=== PATIENT | male | born 1990 | race Caucasian/White ===

== ENCOUNTER 2018-06-28 00:57 | Emergency (ER) | payer SELFPAY ==
[2018-06-28 01:00] VITALS: BP 120/77; PULSE 83; RESP 16; TEMP 36.8; O2SAT 100
--- NOTE | 2018-06-28 01:23 | W.ED.GENAD ---
Discharge Plan Disposition Patient Disposition: HOME Condition: Good Discharge Details Chief Complaint: DentalOral Clinical Impression: Gingival bleeding, S/P tooth extraction Primary Care Provider: Isreal Arcos ED Provider: Deric Anton Home Meds and New Rx's Prescriptions: Continue acetaminophen 500 mg Tablet 1,000 mg PO Q6H PRNRF: 0 Discharge Instructions Additional Instructions: Please follow-up with your dentist first thing in the morning. Use the gauze to apply pressure and control bleeding. Return to ED for any difficulty breathing, lightheadedness, fainting. Stand Alone Forms: Work Release Referrals: [facility] [Provider Group] Medical Decision Making Patient presenting with bleeding status post tooth extraction. The sockets themselves are intact with clot. He is bleeding around the stitch that was placed. It is oozing and is not heavy bleeding. We are having him bite on gauze and holding pressure. He is protecting his airway. There is nothing else at this point for me to do. He will need to follow-up with the dentist in the morning. HPI General Mode of arrival: ambulatory. Date/Time Provider Initiated Documentation: 06/28/18 01:23. Limitations to Documentation: no limitations. Information obtained by: patient. HPI Narrative: Patient here with bleeding status post dental extraction yesterday. He had his 2 right upper molars removed. He had to have stitches placed. 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 He presents now for evaluation. He is otherwise healthy and on essentially no medications. Related Data Home Medications Medication Instructions Recorded Confirmed acetaminophen 1,000 mg PO Q6H PRN 06/28/18 06/28/18 Allergies Allergy/AdvReac Type Severity Reaction Status Date / Time No Known Allergies Allergy Unverified 06/28/18 01:02 General Stated Complaint: DentalOral GEOFF: 4 Review of Systems Constitutional Denies fever(s) ENT Denies lip swelling, Reports mouth pain, Denies throat swelling, Denies tongue swelling and Reports other (Mouth bleeding) Allergic/Immunologic Denies lip swelling, Denies throat swelling and Denies tongue swelling [facility] Medical History Diabetes mellitus (Chronic) Social History Smoking/Tobacco Use Status: Never Exam Const General: cooperative and comfortable Orientation: alert and oriented x3 HENMT Head: normocephalic and atraumatic Teeth and gingiva: other (Clot is present in both empty sockets. Stitch is in place but he is oozing blood around the stitch.) Neuro General: alert, oriented x3, gait normal, no focal motor deficits and CN's II-XI intact bilaterally Course Vital Signs Temperature 98.2 F 06/28/18 01:00 Pulse 83 06/28/18 01:00 Respiratory Rate 16 06/28/18 01:00 Blood Pressure 120/77 06/28/18 01:00 Pulse Oximetry 100 06/28/18 01:00 Temperature 98.2 F 06/28/18 01:00 Temperature Source Skin 06/28/18 01:00 Pulse 83 06/28/18 01:00 Respiratory Rate 16 06/28/18 01:00 Respiratory Effort Non-Labored 06/28/18 01:01 Blood Pressure 120/77 06/28/18 01:00 Blood Pressure Position Sitting 06/28/18 01:00 Pulse Oximetry 100 06/28/18 01:00 Oxygen Delivery Method Room Air 06/28/18 01:00 Oxygen Flow Rate 0 06/28/18 01:00 Pain Level 2 06/28/18 01:00
--- NOTE | 2018-06-28 01:26 | ED.GENADUL_ITS ---
Discharge Plan Disposition Patient Disposition: HOME Condition: Good Discharge Details Chief Complaint: DentalOral Clinical Impression: Gingival bleeding, S/P tooth extraction Primary Care Provider: Isreal Arcos ED Provider: Deric Anton Home Meds and New Rx's Prescriptions: Continue acetaminophen 500 mg Tablet 1,000 mg PO Q6H PRNRF: 0 Discharge Instructions Additional Instructions: Please follow-up with your dentist first thing in the morning. Use the gauze to apply pressure and control bleeding. Return to ED for any difficulty breathing, lightheadedness, fainting. Stand Alone Forms: Work Release Referrals: [facility] [Provider Group] Medical Decision Making Patient presenting with bleeding status post tooth extraction. The sockets themselves are intact with clot. He is bleeding around the stitch that was placed. It is oozing and is not heavy bleeding. We are having him bite on gauze and holding pressure. He is protecting his airway. There is nothing else at this point for me to do. He will need to follow-up with the dentist in the morning. HPI General Mode of arrival: ambulatory . Date/Time Provider Initiated Documentation: 06/28/18 01:23 . Limitations to Documentation: no limitations . Information obtained by: patient . HPI Narrative: Patient here with bleeding status post dental extraction yesterday. He had his 2 right upper molars removed. He had to have stitches placed. 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 He presents now for evaluation. He is otherwise healthy and on essentially no medications. Related Data Home Medications Medication Instructions Recorded Confirmed acetaminophen 1,000 mg PO Q6H PRN 06/28/18 06/28/18 Allergies Allergy/AdvReac Type Severity Reaction Status Date / Time No Known Allergies Allergy Unverified 06/28/18 01:02 General Stated Complaint: DentalOral GEOFF: 4 Review of Systems Constitutional Denies fever(s) ENT Denies lip swelling, Reports mouth pain, Denies throat swelling, Denies tongue swelling and Reports other (Mouth bleeding) Allergic/Immunologic Denies lip swelling, Denies throat swelling and Denies tongue swelling [facility] Medical History Diabetes mellitus (Chronic) Social History Smoking/Tobacco Use Status: Never Exam Const General: cooperative and comfortable Orientation: alert and oriented x3 HENMT Head: normocephalic and atraumatic Teeth and gingiva: other (Clot is present in both empty sockets. Stitch is in place but he is oozing blood around the stitch.) Neuro General: alert, oriented x3, gait normal, no focal motor deficits and CN's II- XI intact bilaterally Course Vital Signs Temperature 98.2 F 06/28/18 01:00 Pulse 83 06/28/18 01:00 Respiratory Rate 16 06/28/18 01:00 Blood Pressure 120/77 06/28/18 01:00 Pulse Oximetry 100 06/28/18 01:00 Temperature 98.2 F 06/28/18 01:00 Temperature Source Skin 06/28/18 01:00 Pulse 83 06/28/18 01:00 Respiratory Rate 16 06/28/18 01:00 Respiratory Effort Non-Labored 06/28/18 01:01 Blood Pressure 120/77 06/28/18 01:00 Blood Pressure Position Sitting 06/28/18 01:00 Pulse Oximetry 100 06/28/18 01:00 Oxygen Delivery Method Room Air 06/28/18 01:00 Oxygen Flow Rate 0 06/28/18 01:00 Pain Level 2 06/28/18 01:00
== END 2018-06-28 02:01 | disposition home or self-care (01) ==
PROVIDERS: Emergency Provider Emergency Medicine; PCP General Practice
DX: K91.840 Postprocedural hemorrhage of a digestive system organ or structure following a digestive system procedure (principal); Y84.8 Other medical procedures as the cause of abnormal reaction of the patient, or of later complication, without mention of misadventure at the time of the procedure; E11.9 Type 2 diabetes mellitus without complications
CPT/HCPCS: 99281

== ENCOUNTER 2018-06-29 14:46 | Outpatient (CLI) | payer SELFPAY ==
[2018-06-29 15:12] LABS: Abs Immature Grans 0.01 k/cumm (0.0-0.09); Absolute Basophil Count 0.05 k/cumm (0.0-0.2); Absolute Eosinophil Count 0.04 k/cumm (0.0-0.7); Absolute Monocyte Count 0.45 k/cumm (0.11-0.7); Absolute Neutrophil Count 3.35 k/cumm (1.2-6.7); Basophils % 0.9; Eosinophils % 0.7; HCT 43.6 % (40.0-50.0); Immature Grans % 0.2; Lymphocytes % 30.4; Mean Corp. HGB Concentration 34.4 g/dL (32.0-36.0); Mean Corpuscular Hemoglobin 30.9 pg (27.0-33.0); Mean Corpuscular Volume 89.9 fL (80-95); Mean Platelet Volume 10.3 fL (8.0-11.0); Neutrophils % 59.8; Platelet Count 203 x1000/uL (130-400); RBC 4.85 m/cumm (4.50-6.00); RBC Distribution Width 12.8 % (11.8-14.1)
[2018-06-29 16:18] LABS: INR 1.1 (1.0-3.5); PTT Activated 27.8 sec (21.0-31.4); Prothrombin Time 10.6 sec (9.3-10.8)
[2018-06-29 20:56] LABS: Hemoglobin A1C 6.7 % (4.5-6.2)
== END 2018-06-29 15:06 ==
PROVIDERS: PCP General Practice; Visit Provider General Practice
DX: R79.1 Abnormal coagulation profile (principal); E11.9 Type 2 diabetes mellitus without complications
CPT/HCPCS: 36415; 83036; 85025; 85610; 85730

== ENCOUNTER 2019-06-18 11:20 | Outpatient (CLI) | payer SELFPAY ==
[2019-06-18 12:10] LABS: CREATININE 1.08 mg/dL (0.70-1.30); Glucose 214 mg/dL (70-100)
[2019-06-18 12:13] LABS: Hemoglobin A1C 7.5 % (4.5-6.2)
== END 2019-06-18 11:40 ==
PROVIDERS: PCP General Practice; Visit Provider General Practice
DX: E11.9 Type 2 diabetes mellitus without complications (principal)
CPT/HCPCS: 36415; 82947; 82565; 83036

== ENCOUNTER 2019-09-23 17:52 | Emergency (ER) | payer SELFPAY ==
[2019-09-23 17:59] VITALS: BP 112/79; PULSE 115; RESP 20; TEMP 36.9; O2SAT 98
--- NOTE | 2019-09-23 18:59 | W.ED.GENAD ---
Discharge Plan Disposition Patient Disposition: HOME Condition: Stable Discharge Details Chief Complaint: GenMedical Clinical Impression: Influenza A Primary Care Provider: Isreal Arcos ED Provider: Nyasia Bullock Home Meds and New Rx's Prescriptions: Continued metformin 1,000 mg Tablet 1,000 mg PO DAILY RF: 0 Discharge Instructions Instructions: Influenza (ED) Additional Instructions: Follow up with primary care provider in 3-5 days. Return to ED sooner if any worsening or concerns. Please take Tylenol or Ibuprofen with food every 4-6 hours as needed for pain and swelling. Increase oral fluids. Practice handwashing wear mask when in close quarters with other people. Stand Alone Forms: Work Release Referrals: Isreal Arcos MD [Primary Care Provider] - Discharge Data Discharge Date/Time-TO BE ENTERED AT DEPARTURE: 09/23/19 19:20 Medical Decision Making 28-year-old diabetic male presents with nausea vomiting, headaches mild sore throat and flu like symptoms. Flu swab is positive for flu a. Discussed treatment option of Tamiflu with patient which he denies at this time. Discussed symptomatic treatment including increasing fluids Tylenol and ibuprofen hand washing and droplet precautions at home.Verbalized understanding. Instructed to return if any worsening symptoms, trouble breathing fever none relieved by medications, verbalized understanding. This text was generated using [employer] dictation system, please disregard any oddities of phrase or misspellings. HPI General Mode of arrival: ambulatory. Date/Time Provider Initiated Documentation: 09/23/19 18:59. Limitations to Documentation: no limitations. Information obtained by: patient. HPI Narrative: 28-year-old male presents with upper respiratory-like symptoms. Reported headache, cough mild sore throat no ear pain. Intermittent nausea and vomiting. Patient is a diabetic and takes metformin. He denies diarrhea. Influenza swab is positive for influenza A. Discussed Tamiflu with patient he denies at this time wanting Tamiflu. Discussed symptomatic treatment Tylenol and ibuprofen, increase fluids and home standardization and handwashing techniques with patient, verbalizes understanding. Related Data Home Medications Medication Instructions Recorded Confirmed metformin 1,000 mg PO DAILY 09/23/19 09/23/19 Allergies Allergy/AdvReac Type Severity Reaction Status Date / Time No Known Allergies Allergy Unverified 09/23/19 18:04 General Stated Complaint: GenMedical GEOFF: 3 Review of Systems Narrative: Constitutional: Negative for weight loss, alert and oriented, well groomed, normal body habitus, appears comfortable. Patient is a diabetic and takes metformin HEENT: Denies trauma, positive headaches, negative blurry vision, positive nasal discharge, positive mild sore throat, negative trouble swallowing. Chest: Denies chest pain, palpitations, irregular rhythm, hypertension. Respiratory: Denies Shortness of breath, cough, hemoptysis. GI: Denies abdominal pain, nausea, vomiting, diarrhea, constipation. : Denies dysuria, hematuria, flank pain, rectal bleeding. Neuro: Denies dizziness, blurry vision, weakness, syncope, or facial numbness. Hematologic: Denies easy bruising, intolerance to heat or cold, hair loss. [facility] Medical History Diabetes mellitus (Chronic) Social History Smoking/Tobacco Use Status: Never Alcohol Intake: never Drug use: Daily Substance use type: marijuana Do you feel safe at home: Yes Do you feel safe in your relationship?: Yes Exam Const General: cooperative, comfortable, no acute distress and well developed Nutritional Appearance: average body habitus Orientation: alert, awake and oriented x3 HENMT Head: normal to inspection, no palpable skull fracture and normocephalic Ears: TM's normal bilaterally General nose exam: external nose normal and nares normal Face and sinus: normal facial exam and sinuses nontender Mouth: oral mucosae normal Throat: uvula midline and posterior oropharynx abnormal erythema; no edema and no exudates Neck Lymphatic: no lymphadenopathy noted Resp Effort & Inspection: normal respiratory effort Auscultation: clear to auscultation bilaterally, no rhonchi and no wheezes Cardio Rate: regular rate Rhythm: regular rhythm Heart Sounds: S1 normal and S2 normal Course Vital Signs Vital signs: Vital Signs Temperature 36.9 C 09/23/19 17:59 Pulse 115 H 09/23/19 17:59 Respiratory Rate 09/23/19 17:59 Blood Pressure 112/79 09/23/19 17:59 Pulse Oximetry 98 09/23/19 17:59 Temperature 36.9 C 09/23/19 17:59 Temperature Source Tympanic 09/23/19 17:59 Pulse 115 H 09/23/19 17:59 Respiratory Rate 09/23/19 17:59 Respiratory Effort Non-Labored 09/23/19 18:02 Blood Pressure 112/79 09/23/19 17:59 Blood Pressure Position Sitting 09/23/19 17:59 Pulse Oximetry 98 09/23/19 17:59 Oxygen Delivery Method Room Air 09/23/19 17:59 Oxygen Flow Rate 0 09/23/19 17:59 Pain Level 4 09/23/19 17:59 Lab/Test Results Lab/Test Results: 09/23/19 18:07 Nasopharynx Influenza Types A,B Antigen - Final
[2019-09-23 19:21] VITALS: RESP 16
== END 2019-09-23 19:20 | disposition home or self-care (01) ==
PROVIDERS: Emergency Provider Registered Nurse Emergency; PCP General Practice
DX: J10.1 Influenza due to other identified influenza virus with other respiratory manifestations (principal); R11.2 Nausea with vomiting, unspecified; E11.9 Type 2 diabetes mellitus without complications; Z79.84 Long term (current) use of oral hypoglycemic drugs
CPT/HCPCS: 87449; 99282; 99283

== ENCOUNTER 2022-09-20 13:54 | Inpatient (IN) | payer SELFPAY ==
[2022-09-20] VITALS (92 sets, daily range): BP systolic 103–150; BP diastolic 49–108; PULSE 97–159; RESP 13–27; TEMP 37.6–37.8; O2SAT 96–100
--- NOTE | 2022-09-20 14:00 | RT.EKG_ITS ---
APPROVED REPORT Exam: Resting ECG Reason for Exam: rapid heart rate Patient Location: E HR:136 bpm ECG Measurements Heart Rate 136 AXIS MD 134 P 82 QRSd 93 QRS 139 QT 297 T 59 QTc 448 Conclusion Sinus tachycardia...rate> 99 Right axis deviation...QRS axis (100,269) ST elev, probable normal early repol pattern...ST elevation, age<55
[2022-09-20 14:36] LABS: Abs Immature Grans 0.11 10^3/uL (0.0-0.06); Absolute Lymphocyte Count 1.01 10^3/uL (1.2-3.4); Absolute Neutrophil Count 14.48 10^3/uL (1.2-6.7); Basophils % 0.7; Eosinophils % 0.1; HCT 53.2 % (40.0-50.0); HGB 17.7 g/dL (13.5-17.5); Immature Grans % 0.7; Lymphocytes % 6.2; MCH 30.5 pg (27.0-33.0); MCHC 33.3 % (32.0-36.0); MCV 92 fL (80-95); MPV 10.2 fL (8.0-11.0); Neutrophils % 89.3; Platelet Count 324 10^3/uL (130-400); RDW 11.7 % (11.8-14.1); RDW-SD 39.4 fL; WBC 16.21 10^3/uL (4.4-10.8)
[2022-09-20 14:37] LABS: Absolute Basophil Count 0.11 10^3/uL (0.0-0.2); Absolute Eosinophil Count 0.02 10^3/uL (0.0-0.7); Absolute Monocyte Count 0.49 10^3/uL (0.1-0.8)
[2022-09-20] MEDS: Ondansetron 4 MG/2 ML VIAL IVP (14:45)
[2022-09-20] MEDS: Lactated Ringers 1,000 ML 1000 ML IV (14:47)
[2022-09-20 14:50] LABS: ALT 29 U/L (16-63); AST 16 U/L (15-37); Albumin 5.4 g/dL (3.4-5.0); Alkaline Phosphatase 92 U/L (46-116); Anion Gap 26.6 mmol/L (3-11); BUN 28 mg/dL (7-18); Bilirubin, Total 0.7 mg/dL (0.2-1.0); CO2 12.4 mmol/L (21.0-32.0); CREATININE 1.7 mg/dL (0.70-1.30); Calcium 10.1 mg/dL (8.5-10.1); Chloride 97 mmol/L (98-107); Estimated GFR 54.59 (mL/min/1.73m2); Glucose 321 mg/dL (74-106); Potassium 4.7 mmol/L (3.5-5.1); Sodium 136 mmol/L (136-145); Total Protein 9.6 g/dL (6.4-8.2)
[2022-09-20] MEDS: Famotidine 20 MG/2 ML VIAL IVP (15:15)
--- NOTE | 2022-09-20 15:15 | ED.GENADUL_ITS ---
Discharge Plan Discharge Details Chief Complaint: Nausea/Vomit/Diar Primary Care Provider: Matthew Lama ED Provider: Carter Atkinson Home Meds and New Rx's Prescriptions: No Action (DME) insulin syringe-needle U-100 0.3 mL 31 gauge x 1/4 syringe See Rx Instructions .ROUTE .MEDSUPPLY Qty: 100 4RF Rx Instructions: As directed insulin NPH isoph U-100 human 100 unit/mL suspension 20 unit subcut DAILY Medical Decision Making 31-year-old male with history of insulin-dependent diabetes, here with excessive vomiting today, noncompliant with insulin over the past 4 days as he ran out of supplies. Patient is tachycardic. He was reviewed and interpreted by me: Please see report, sinus tachycardia 136 bpm, right axis deviation noted, benign early repolarization. [id number] blood sugar 291. Initial labs reviewed, leukocytosis noted, WILLIAM noted, significant lactic acidosis with anion gap of 26.6. Glucose 321. High concern for DKA. Patient receiving IV fluid bolus. Plan to initiate treatment with insulin post IV fluid resuscitation. Patient was given Pepcid IV as well as Zofran IV for nausea. Lab Data Lab results reviewed: Yes I reviewed the patient's lab results. Labs: Laboratory Tests Range/Units 09/20/22 09/20/22 14:00 14:00 WBC (4.4-10.8) 10^3/uL 16.21 H RBC (4.36-5.78) 10^6/uL 5.80 H Hgb (13.5-17.5) g/dL 17.7 H Hct (40.0-50.0) % 53.2 H MCV (80-95) fL 92 MCH (27.0-33.0) pg 30.5 MCHC (32.0-36.0) % 33.3 RDW (11.8-14.1) % 11.7 L Plt Count (130-400) 10^3/uL 324 MPV (8.0-11.0) fL 10.2 Immature Gran % 0.7 Neutrophils % 89.3 Lymphocytes % 6.2 Monocytes % 3.0 Eosinophils % 0.1 Basophils % 0.7 Nucleated RBC % (0.0-0.3) % 0.0 Absolute Neutrophils (1.2-6.7) 10^3/uL 14.48 H Absolute Lymphocytes (1.2-3.4) 10^3/uL 1.01 L Absolute Monocytes (0.1-0.8) 10^3/uL 0.49 Absolute Eosinophils (0.0-0.7) 10^3/uL 0.02 Absolute Basophils (0.0-0.2) 10^3/uL 0.11 Sodium (136-145) mmol/L 136 Potassium (3.5-5.1) mmol/L 4.7 Chloride (98-107) mmol/L 97 L Carbon Dioxide (21.0-32.0) mmol/L 12.4 L Anion Gap (3-11) mmol/L 26.6 H BUN (7-18) mg/dL 28 H Creatinine (0.70-1.30) mg/dL 1.7 H Est GFR (CKD-EPI 2020) (mL/min/1.73m2) 54.59 Glucose (74-106) mg/dL 321 H Calcium (8.5-10.1) mg/dL 10.1 Magnesium (1.8-2.4) mg/dL 2.0 Total Bilirubin (0.2-1.0) mg/dL 0.7 AST (15-37) U/L 16 ALT (16-63) U/L 29 Alkaline Phosphatase (46-116) U/L 92 Total Protein (6.4-8.2) g/dL 9.6 H Albumin (3.4-5.0) g/dL 5.4 H HPI General Mode of arrival: ambulatory . Date/Time Provider Initiated Documentation: 09/20/22 14:14 . Limitations to Documentation: no limitations . Information obtained by: patient . HPI Narrative: 31-year-old male with history of insulin-dependent diabetes, presents with chief complaint of vomiting. Patient notes nausea and vomiting that started early thi s morning. He has had excessive, 20+ episodes of vomiting today. He denies associated abdominal pain. He does note recently some of the emesis has been red-tinged. Patient states he has not been taking his insulin for the past 4 days as he ran out of needles. Related Data Home Medications Medication Instructions Recorded Confirmed insulin syringe-needle U-100 0.3 #100 ea 08/27/20 09/20/22 mL 31 gauge x 1/4 insulin NPH isoph U-100 human 100 20 unit subcut DAILY Reli-On Brand 12/04/20 09/20/22 unit/mL subcutaneous suspension Previous Rx's Medication Instructions Recorded insulin syringe-needle U-100 0.3 #100 ea 08/27/20 mL 31 gauge x 1/4 Allergies Allergy/AdvReac Type Severity Reaction Status Date / Time shellfish derived Allergy Severe Throat Verified 09/20/22 14:12 Swelling General Stated Complaint: Nausea/Vomit/Diar GEOFF: 2 Review of Systems All systems reviewed & are unremarkable except as noted in HPI and below Constitutional Constitutional: Denies fever(s) Gastrointestinal Gastrointestinal: Reports as per HPI, Reports nausea and Reports vomiting PFSH All Active Problems Shoulder pain, left (Acute) Low back strain (Acute) Headache (Acute) Abdominal symptoms (Acute) Loose stools (Acute) Anxiety (Chronic) Annual physical exam (Acute) Diabetes mellitus (Chronic) Influenza A (Acute) Medical History Diabetes mellitus Family History Mother Asthma Depression Diabetes Father Seizures Sister Seizures Social History Smoking/Tobacco Use Status: Former Tobacco Use Second Hand Exposure: Yes Smoking risk assessment performed?: Yes Alcohol Intake: never Drug use: Daily Substance use type: marijuana Caregiver/Support person: No Household members: spouse Communication Needs: None Do you need help understanding health information?: Never Pets and animals: Yes Pets and animals: cat(s) Sexually active: Yes Do you think of yourself as: straight/heterosexual Current gender identity: male What is your relationship status?: How often do you talk on the phone with friends or family?: once per week How often do you get together with friends or relatives?: once per week How often do you attend islam or orthodox services?: decline to answer Do you belong to any clubs or organized social groups?: no Panel score (0-1 are the most socially isolated patients): 1 What type of physical activity do you participate in: walking Duration: other Frequency: daily Louise/Confucianist: Anabaptist Seatbelt use: always Drive intox or ride w/intox home delivery driver: No Do you feel safe at home: Yes Do you feel safe in your relationship?: Yes Exam Const General: cooperative and no acute distress HENMT Mouth: mucous membranes dry Eyes Conjunctivae: normal conjunctivae Sclera: normal sclerae Neck Neck: trachea midline and supple Resp Auscultation: clear to auscultation bilaterally, no rales, no rhonchi and no wheezes Cardio Rate: tachycardic Rhythm: regular rhythm GI Palpation: soft, not firm, no guarding, no masses, not rigid and nontender Skin General skin exam: no rashes or lesions noted Neuro General: patient alert, patient awake and tone normal Extrem General: no edema Psych Appearance: grossly normal Mental Status: mental status grossly normal Course Vital Signs Vital signs: Vital Signs Temperature 37.6 C H 09/20/22 13:57 Pulse 152 H 09/20/22 13:57 Respiratory Rate 18 09/20/22 13:57 Blood Pressure 113/56 L 09/20/22 13:57 Pulse Oximetry 96 09/20/22 13:57 Temperature 37.6 C H 09/20/22 13:57 Temperature Source Temporal Artery Scan 09/20/22 13:57 Pulse 152 H 09/20/22 13:57 Respiratory Rate 18 09/20/22 13:57 Respiratory Effort 09/20/22 14:06 Blood Pressure 113/56 L 09/20/22 13:57 Pulse Oximetry 96 09/20/22 13:57 Oxygen Delivery Method Room Air 09/20/22 13:57 Oxygen Flow Rate 0 09/20/22 13:57 Lab/Test Results Lab/Test Results: Laboratory Tests Range/Units 09/20/22 09/20/22 14:00 14:00 WBC (4.4-10.8) 10^3/uL 16.21 H RBC (4.36-5.78) 10^6/uL 5.80 H Hgb (13.5-17.5) g/dL 17.7 H Hct (40.0-50.0) % 53.2 H MCV (80-95) fL 92 MCH (27.0-33.0) pg 30.5 MCHC (32.0-36.0) % 33.3 RDW (11.8-14.1) % 11.7 L Plt Count (130-400) 10^3/uL 324 MPV (8.0-11.0) fL 10.2 Immature Gran % 0.7 Neutrophils % 89.3 Lymphocytes % 6.2 Monocytes % 3.0 Eosinophils % 0.1 Basophils % 0.7 Nucleated RBC % (0.0-0.3) % 0.0 Absolute Neutrophils (1.2-6.7) 10^3/uL 14.48 H Absolute Lymphocytes (1.2-3.4) 10^3/uL 1.01 L Absolute Monocytes (0.1-0.8) 10^3/uL 0.49 Absolute Eosinophils (0.0-0.7) 10^3/uL 0.02 Absolute Basophils (0.0-0.2) 10^3/uL 0.11 Sodium (136-145) mmol/L 136 Potassium (3.5-5.1) mmol/L 4.7 Chloride (98-107) mmol/L 97 L Carbon Dioxide (21.0-32.0) mmol/L 12.4 L Anion Gap (3-11) mmol/L 26.6 H BUN (7-18) mg/dL 28 H Creatinine (0.70-1.30) mg/dL 1.7 H Est GFR (CKD-EPI 2020) (mL/min/1.73m2) 54.59 Glucose (74-106) mg/dL 321 H Calcium (8.5-10.1) mg/dL 10.1 Magnesium (1.8-2.4) mg/dL 2.0 Total Bilirubin (0.2-1.0) mg/dL 0.7 AST (15-37) U/L 16 ALT (16-63) U/L 29 Alkaline Phosphatase (46-116) U/L 92 Total Protein (6.4-8.2) g/dL 9.6 H Albumin (3.4-5.0) g/dL 5.4 H
[2022-09-20] MEDS: Normal Saline 1,000 ML 1000 ML IV (15:26)
--- NOTE | 2022-09-20 16:15 | DI.RAD_ITS ---
Exam(s) XR PORTABLE CHEST AP EXAM: XR PORTABLE CHEST AP CLINICAL HISTORY: vomiting, consider aspiration TECHNIQUE: 2D digital imaging was performed of the chest. Two images were obtained. AP views were obtained. COMPARISON: CR CHEST 2 VIEWS PA,LAT from 02/27/2018 FINDINGS: MEDIASTINUM: Normal. HEART: Normal. PULMONARY VASCULATURE: Normal. LUNGS: Clear. PLEURAL SPACE: No pleural effusion or pneumothorax. BONE:Within normal limits for the patient's age. OTHER FINDINGS:Normal. IMPRESSION: No acute pulmonary findings. DATA REPOSITORY: RADIATION DOSE DELIVERED:
[2022-09-20 16:18] LABS: HCO3 (Venous) 9 mmol/L (23-28); O2 Sat (Venous) 91 %; TCO2 (Venous) 8 mmol/L (24-29); pCO2 (Venous) 29 mmHg (41-51); pO2 (Venous) 68 mmHg
[2022-09-20 16:21] LABS: pH (Venous) 7.07 (7.31-7.41)
--- NOTE | 2022-09-20 16:23 | W.EDPROG ---
Date of service: 09/20/22 Time of Service: 16:23 Medical Decision Making Red discoloration to vomiting on arrival. Gastroccult trace positive. Patient reassessed and has no recurrent hematemesis. I spoke with Dr. Alvarez and discussed ED presentation and course. She requests cxr. She will admit the patient to ICU. She is aware of pending UA and VBG. She will be placing admission orders to ICU. Lab Data Lab results reviewed: Yes I reviewed the patient's lab results. Labs: Laboratory Tests Range/Units 09/20/22 09/20/22 09/20/22 14:00 14:00 14:50 WBC (4.4-10.8) 10^3/uL 16.21 H RBC (4.36-5.78) 10^6/uL 5.80 H Hgb (13.5-17.5) g/dL 17.7 H Hct (40.0-50.0) % 53.2 H MCV (80-95) fL 92 MCH (27.0-33.0) pg 30.5 MCHC (32.0-36.0) % 33.3 RDW (11.8-14.1) % 11.7 L Plt Count (130-400) 10^3/uL 324 MPV (8.0-11.0) fL 10.2 Immature Gran % 0.7 Neutrophils % 89.3 Lymphocytes % 6.2 Monocytes % 3.0 Eosinophils % 0.1 Basophils % 0.7 Nucleated RBC % (0.0-0.3) % 0.0 Absolute Neutrophils (1.2-6.7) 10^3/uL 14.48 H Absolute Lymphocytes (1.2-3.4) 10^3/uL 1.01 L Absolute Monocytes (0.1-0.8) 10^3/uL 0.49 Absolute Eosinophils (0.0-0.7) 10^3/uL 0.02 Absolute Basophils (0.0-0.2) 10^3/uL 0.11 VBG pH (7.31-7.41) VBG pCO2 (41-51) mmHg VBG pO2 mmHg VBG HCO3 (23-28) mmol/L VBG Total CO2 (24-29) mmol/L VBG O2 Saturation % VBG Base Excess (-2-3) mmol/L Sodium (136-145) mmol/L 136 Potassium (3.5-5.1) mmol/L 4.7 Chloride (98-107) mmol/L 97 L Carbon Dioxide (21.0-32.0) mmol/L 12.4 L Anion Gap (3-11) mmol/L 26.6 H BUN (7-18) mg/dL 28 H Creatinine (0.70-1.30) mg/dL 1.7 H Est GFR (CKD-EPI 2020) (mL/min/1.73m2) 54.59 Glucose (74-106) mg/dL 321 H Calcium (8.5-10.1) mg/dL 10.1 Magnesium (1.8-2.4) mg/dL 2.0 Total Bilirubin (0.2-1.0) mg/dL 0.7 AST (15-37) U/L 16 ALT (16-63) U/L 29 Alkaline Phosphatase (46-116) U/L 92 Total Protein (6.4-8.2) g/dL 9.6 H Albumin (3.4-5.0) g/dL 5.4 H Patient ABO/Rh O Positive Antibody Screen NEGATIVE Range/Units 09/20/22 16:14 WBC (4.4-10.8) 10^3/uL RBC (4.36-5.78) 10^6/uL Hgb (13.5-17.5) g/dL Hct (40.0-50.0) % MCV (80-95) fL MCH (27.0-33.0) pg MCHC (32.0-36.0) % RDW (11.8-14.1) % Plt Count (130-400) 10^3/uL MPV (8.0-11.0) fL Immature Gran % Neutrophils % Lymphocytes % Monocytes % Eosinophils % Basophils % Nucleated RBC % (0.0-0.3) % Absolute Neutrophils (1.2-6.7) 10^3/uL Absolute Lymphocytes (1.2-3.4) 10^3/uL Absolute Monocytes (0.1-0.8) 10^3/uL Absolute Eosinophils (0.0-0.7) 10^3/uL Absolute Basophils (0.0-0.2) 10^3/uL VBG pH (7.31-7.41) 7.07 L* VBG pCO2 (41-51) mmHg 29 L VBG pO2 mmHg 68 VBG HCO3 (23-28) mmol/L 9 L VBG Total CO2 (24-29) mmol/L 8 L VBG O2 Saturation % 91 VBG Base Excess (-2-3) mmol/L < -15 L Sodium (136-145) mmol/L Potassium (3.5-5.1) mmol/L Chloride (98-107) mmol/L Carbon Dioxide (21.0-32.0) mmol/L Anion Gap (3-11) mmol/L BUN (7-18) mg/dL Creatinine (0.70-1.30) mg/dL Est GFR (CKD-EPI 2020) (mL/min/1.73m2) Glucose (74-106) mg/dL Calcium (8.5-10.1) mg/dL Magnesium (1.8-2.4) mg/dL Total Bilirubin (0.2-1.0) mg/dL AST (15-37) U/L ALT (16-63) U/L Alkaline Phosphatase (46-116) U/L Total Protein (6.4-8.2) g/dL Albumin (3.4-5.0) g/dL Patient ABO/Rh Antibody Screen Sign Out Sign Out Data: Sign Out Comment: reassess labs and continue dka treatment Last updated by Carter Atkinson MD at 09/20/22 15:51 Discharge Plan Disposition Patient Disposition: Admit to [facility] Condition: Critical Discharge Details Chief Complaint: Nausea/Vomit/Diar Clinical Impression: DKA (diabetic ketoacidosis), Hematemesis, Nausea & vomiting Primary Care Provider: Matthew Lama ED Provider: Sung Basilio Home Meds and New Rx's Prescriptions: No Action (DME) insulin syringe-needle U-100 0.3 mL 31 gauge x 1/4 syringe See Rx Instructions .ROUTE .MEDSUPPLY Qty: 100 4RF Rx Instructions: As directed insulin NPH isoph U-100 human 100 unit/mL suspension 20 unit subcut DAILY
--- NOTE | 2022-09-20 16:32 | W.PM.HP.N ---
Date of service: 09/20/22 Time of Service: 16:32 Assessment and Plan Assessment and plan (1) DKA (diabetic ketoacidosis): Status: Acute Assessment and plan: Admit to the ICU on an insulin gtt. Trend VBGs, chemistries. Aggressive IVF. Provide diabetes education (2) Hematemesis: Status: Acute Assessment and plan: Start PPI + carafate. Provide antiemetics. Trend H/H's. Consider a surgical consult. Suspect a Dora - Villasenor tear. (3) Nausea & vomiting: Status: Acute Assessment and plan: Suspect this is due to DKA. No abdominal pain. Treat with antiemetics and treat DKA. NPO. (4) Diabetes mellitus: Assessment and plan: Check A1C C/s diabetes education. (5) DVT prophylaxis: Status: Acute Assessment and plan: SCDs. Chemical DVT ppx is not indicated in an ambulatory 31 year old male with acute GI bleeding (6) Discharge planning issues: Status: Acute Assessment and plan: Admit to the ICU. Total Critical Care Time 45 minutes History of Present Illness History of Present Illness Chief Complaint: Nausea/vomiting; ran out of insulin needles 4 days aog Narrative: Mr Duffy is a 31 year old male with PMHx of T1DM who presented to [facility] ED with nausea/vomiting, dizziness, shortness of breath, and confusion starting this morning, 4 days after running out of insulin needles for his syringes and, reportedly, being unable to refill them at his pharmacy. He states that he did vomit blood. In the ER, he was tachycardic/dehydrated. His emetic contents are gastroccult positive. Denies abdominal pain.His pH is 7.07. His Cr is 1.7, up from 1.08. He was started on aggressive IVF and insulin gtt is being initiated. He received zofran and pepcid for hematemesis. Hospitalist admission to the ICU was requested. The patient reports R jaw pain. Review of Systems All systems reviewed & are unremarkable except as noted in HPI and below PFSH All Active Problems (Updated 09/20/22 @ 16:46 by Meena Alvarez MD) Discharge planning issues (Acute) DVT prophylaxis (Acute) DKA (diabetic ketoacidosis) (Acute) Hematemesis (Acute) Nausea & vomiting (Acute) Shoulder pain, left (Acute) Low back strain (Acute) Headache (Acute) Abdominal symptoms (Acute) Loose stools (Acute) Anxiety (Chronic) Annual physical exam (Acute) Diabetes mellitus (Chronic) Influenza A (Acute) Medical History (Updated 09/20/22 @ 16:46 by Meena Alvarez MD) Diabetes mellitus Surgical History (Updated 09/20/22 @ 17:35 by Meena Alvarez MD) No pertinent past surgical history Family History (Updated 09/20/22 @ 17:35 by Meena Alvarez MD) Mother Asthma Depression Diabetes Heart disease Hypertension Father Seizures Sister Seizures Social History Smoking/Tobacco Use Status: Former Tobacco Use Second Hand Exposure: Yes Smoking risk assessment performed?: Yes Alcohol Intake: never Drug use: Daily Substance use type: marijuana Caregiver/Support person: No Household members: spouse Communication Needs: None Do you need help understanding health information?: Never Pets and animals: Yes Pets and animals: cat(s) Sexually active: Yes Do you think of yourself as: straight/heterosexual Current gender identity: male What is your relationship status?: How often do you talk on the phone with friends or family?: once per week How often do you get together with friends or relatives?: once per week How often do you attend gnosticist or sikh services?: decline to answer Do you belong to any clubs or organized social groups?: no Panel score (0-1 are the most socially isolated patients): 1 What type of physical activity do you participate in: walking Duration: other Frequency: daily Louise/Catholic: Zoroastrianism Seatbelt use: always Drive intox or ride w/intox marine engine driver: No Do you feel safe at home: Yes Do you feel safe in your relationship?: Yes Meds Allergies and Home Medications Allergies Allergy/AdvReac Type Severity Reaction Status Date / Time shellfish derived Allergy Severe Throat Verified 09/20/22 14:12 Swelling Home Medications Medication Instructions Recorded Confirmed Type insulin syringe-needle U-100 0.3 #100 ea 08/27/20 09/20/22 Rx mL 31 gauge x 1/4 insulin NPH isoph U-100 human 100 20 unit subcut DAILY Reli-On Brand 12/04/20 09/20/22 History unit/mL subcutaneous suspension Exam Narrative Exam Narrative: General: Pleasant male who is A&Ox3, appears tired, visibly dehydrated, not tachypneic Neurological: A&Ox3, no focal deficits, mentating Psychiatric: appropriate speech pattern/cotent Skin: multiple skin nodules that do not appear infected HEENT: Atraumatic, normocephalic, EOMI, dry MM, clear oropharynx, no submandibular or cervical lymphadenopathy, no goiter or JVD Cardiovascular: RRR, tachycardic Lungs: CTAB Gastrointestinal: soft, nontender, nondistended Genitourinary: deferred Extremities: no edema BLEs, 1+ pedal pulses B Results Imaging Additional studies: CXR: pending EKG: ST, HR 136, early repolarization, no acute ischemia Labs Result diagrams: 09/20/22 14:00 09/20/22 14:00 Labs: Laboratory Results - last 24 hr 09/20/22 09/20/22 09/20/22 14:00 14:00 14:50 WBC 16.21 H RBC 5.80 H Hgb 17.7 H Hct 53.2 H MCV 92 MCH 30.5 MCHC 33.3 RDW 11.7 L Plt Count 324 MPV 10.2 Immature Gran % 0.7 Neutrophils % 89.3 Lymphocytes % 6.2 Monocytes % 3.0 Eosinophils % 0.1 Basophils % 0.7 Nucleated RBC % 0.0 Absolute Neutrophils 14.48 H Absolute Lymphocytes 1.01 L Absolute Monocytes 0.49 Absolute Eosinophils 0.02 Absolute Basophils 0.11 VBG pH VBG pCO2 VBG pO2 VBG HCO3 VBG Total CO2 VBG O2 Saturation VBG Base Excess Sodium 136 Potassium 4.7 Chloride 97 L Carbon Dioxide 12.4 L Anion Gap 26.6 H BUN 28 H Creatinine 1.7 H Est GFR (CKD-EPI 2020) 54.59 Glucose 321 H Calcium 10.1 Magnesium 2.0 Total Bilirubin 0.7 AST 16 ALT 29 Alkaline Phosphatase 92 Total Protein 9.6 H Albumin 5.4 H Patient ABO/Rh O Positive Antibody Screen NEGATIVE 09/20/22 16:14 WBC RBC Hgb Hct MCV MCH MCHC RDW Plt Count MPV Immature Gran % Neutrophils % Lymphocytes % Monocytes % Eosinophils % Basophils % Nucleated RBC % Absolute Neutrophils Absolute Lymphocytes Absolute Monocytes Absolute Eosinophils Absolute Basophils VBG pH 7.07 L* VBG pCO2 29 L VBG pO2 68 VBG HCO3 9 L VBG Total CO2 8 L VBG O2 Saturation 91 VBG Base Excess < -15 L Sodium Potassium Chloride Carbon Dioxide Anion Gap BUN Creatinine Est GFR (CKD-EPI 2020) Glucose Calcium Magnesium Total Bilirubin AST ALT Alkaline Phosphatase Total Protein Albumin Patient ABO/Rh Antibody Screen Last Vital Signs Temp 37.6 C H 09/20/22 13:57 Pulse 152 H 09/20/22 13:57 Resp 18 09/20/22 13:57 BP 113/56 L 09/20/22 13:57 Pulse Ox 96 09/20/22 13:57 Time Spent Time spent with Patient: 40-54 minutes Time was spent: preparing to see the patient(eg.review tests), obtaining and/or reviewing separately otained hiistory, ordering medications,tests, procedures, referring, communicating with other health personal caregiver, indepentently interpreting results, counseling the patient and care coordination
[2022-09-20 16:42] LABS: Source Nasal/Nares
[2022-09-20 16:44] LABS: Bilirubin Negative (Negative); Blood Trace-lysed (Negative); Clarity Clear (Clear); Glucose 500 mg/dL (Negative); Ketones >=160 mg/dL (Negative); Leukocyte Esterase Negative (Negative); Nitrite Negative (Negative); Specific Gravity >= 1.030 (1.005-1.025); Urobilinogen 0.2 EU/dL (Up TO 0.2); pH 5.5 (5-8)
[2022-09-20 16:51] LABS: Bacteria Negative HPF (Negative); C & S Indicated? No; Casts Negative LPF (Negative); Crystals Negative HPF (Negative); Epithelial Cells Rare HPF (Negative); Mucus Negative (Negative); Other Cells Negative (Negative); RBC 0-2 HPF (0-2); WBC 0-2 HPF (0-5)
[2022-09-20 17:12] LABS: COVID-19 PCR Negative (Negative)
--- NOTE | 2022-09-20 17:14 | W.EDPROG ---
Date of service: 09/20/22 Time of Service: 17:15 Medical Decision Making Patient was admitted to Hospitalist service by Dr Atkinson. Sign Out Sign Out Data: Sign Out Comment: reassess labs and continue dka treatment Last updated by Crater Atkinson MD at 09/20/22 15:51 Discharge Plan Disposition Patient Disposition: Admit to [facility] Condition: Critical Discharge Details Clinical Impression: DKA (diabetic ketoacidosis), Hematemesis, Nausea & vomiting Primary Care Provider: Matthew Lama ED Provider: Sung Basilio Home Meds and New Rx's Prescriptions: No Action (DME) insulin syringe-needle U-100 0.3 mL 31 gauge x 1/4 syringe See Rx Instructions .ROUTE .MEDSUPPLY Qty: 100 4RF Rx Instructions: As directed insulin NPH isoph U-100 human 100 unit/mL suspension 20 unit subcut DAILY
--- NOTE | 2022-09-20 17:28 | DI.VRAD_ITS ---
PROCEDURE INFORMATION: Exam: XR Chest Exam date and time: 09/20/2022 4:48 PM Age: 31 years old Clinical indication: Other: Vomitting, consider aspiration TECHNIQUE: Imaging protocol: Radiologic exam of the chest. Views: 1 view. COMPARISON: CR CHEST 2 VIEWS PA,LAT 02/27/2018 11:38 AM FINDINGS: Lungs: Unremarkable. No consolidation. Pleural spaces: Unremarkable. No pleural effusion. No pneumothorax. Heart/Mediastinum: Unremarkable. No cardiomegaly. Bones/joints: Unremarkable. IMPRESSION: No acute findings. Dictated and Authenticated by: Helene Suero MD. Ordering:CAROLE Machado MD
--- NOTE | 2022-09-20 17:30 | RT.EKG_ITS ---
APPROVED REPORT Exam: Resting ECG Reason for Exam: jaw pain Patient Location: E HR:121 bpm ECG Measurements Heart Rate 121 AXIS NC 146 P 83 QRSd 97 QRS 100 QT 318 T 66 QTc 452 Conclusion Sinus tachycardia. Right axis deviation. early repol pattern.
[2022-09-20] MEDS: Lactated Ringers 1,000 ML 200 ML IV ×2 (17:38→20:48)
[2022-09-20] MEDS: INSULIN REGULAR IN 0.9 % NACL 100 UNIT/100 ML BAG IV (17:44)
[2022-09-20 18:53] LABS: HCO3 (Venous) 9 mmol/L (23-28); HCT 51.6 % (40.0-50.0); O2 Sat (Venous) 73 %; TCO2 (Venous) 9 mmol/L (24-29); pCO2 (Venous) 35 mmHg (41-51); pO2 (Venous) 42 mmHg
[2022-09-20 18:55] LABS: pH (Venous) 7.02 (7.31-7.41)
[2022-09-20 19:10] LABS: Anion Gap 24.4 mmol/L (3-11); BUN 25 mg/dL (7-18); CO2 10.6 mmol/L (21.0-32.0); CREATININE 1.5 mg/dL (0.70-1.30); Calcium 9.5 mg/dL (8.5-10.1); Chloride 101 mmol/L (98-107); Estimated GFR 63.44 (mL/min/1.73m2); Glucose 301 mg/dL (74-106); Magnesium 1.9 mg/dL (1.8-2.4); PHOSPHORUS 4.6 mg/dL (2.6-4.7); Sodium 136 mmol/L (136-145)
[2022-09-20 19:13] LABS: Potassium 5.8 mmol/L (3.5-5.1); Troponin I < 50 ng/L (<or=60)
[2022-09-20] MEDS: Acetaminophen 325 MG TAB PO (20:53)
[2022-09-20] MEDS: Sucralfate 1 GM TAB PO (20:53)
[2022-09-20] MEDS: Pantoprazole 40 MG VIAL 80 MG IVP (20:55)
[2022-09-20] MEDS: Normal Saline Flush 10 ML SYR IVP (20:56)
[2022-09-20 22:23] LABS: HCO3 (Venous) 11 mmol/L (23-28); O2 Sat (Venous) 83 %; TCO2 (Venous) 10 mmol/L (24-29); pCO2 (Venous) 30 mmHg (41-51); pO2 (Venous) 46 mmHg
[2022-09-20 22:27] LABS: pH (Venous) 7.15 (7.31-7.41)
[2022-09-20 22:34] LABS: Anion Gap 20.2 mmol/L (3-11); BUN 19 mg/dL (7-18); CO2 11.8 mmol/L (21.0-32.0); CREATININE 1.4 mg/dL (0.70-1.30); Calcium 8.8 mg/dL (8.5-10.1); Chloride 105 mmol/L (98-107); Estimated GFR 68.91 (mL/min/1.73m2); Glucose 168 mg/dL (74-106); Magnesium 1.8 mg/dL (1.8-2.4); Sodium 137 mmol/L (136-145)
[2022-09-20 22:48] LABS: Troponin I < 50 ng/L (<or=60)
[2022-09-21] VITALS (75 sets, daily range): BP systolic 93–103; BP diastolic 50–64; PULSE 74–102; RESP 11–25; TEMP 37–37.1; O2SAT 96–100
[2022-09-21] MEDS: POTASSIUM CHLORIDE/D5-0.9%NACL 1,000 ML 200 MEQ IV ×2 (02:02→06:37)
--- NOTE | 2022-09-21 02:10 | NUR.NOTE ---
Nursing Note: Patients Belinda called and requested an update. Current Blood Sugar Values were provided along with patient condition. Patient was sleeping at the time of her call.
[2022-09-21 02:12] LABS: BE (Venous) -12 mmol/L (-2-3); HCO3 (Venous) 15 mmol/L (23-28); O2 Sat (Venous) 97 %; TCO2 (Venous) 13 mmol/L (24-29); pCO2 (Venous) 30 mmHg (41-51); pH (Venous) 7.29 (7.31-7.41); pO2 (Venous) 80 mmHg
[2022-09-21 02:14] LABS: HCT 41.4 % (40.0-50.0); HGB 14.2 g/dL (13.5-17.5)
[2022-09-21 02:23] LABS: Anion Gap 13.7 mmol/L (3-11); BUN 17 mg/dL (7-18); CO2 16.3 mmol/L (21.0-32.0); CREATININE 1.3 mg/dL (0.70-1.30); Calcium 8.7 mg/dL (8.5-10.1); Chloride 107 mmol/L (98-107); Estimated GFR 75.32 (mL/min/1.73m2); Glucose 134 mg/dL (74-106); Magnesium 1.7 mg/dL (1.8-2.4); Potassium 4.5 mmol/L (3.5-5.1); Sodium 137 mmol/L (136-145)
[2022-09-21] MEDS: Pantoprazole 40 MG VIAL 80 MG IVP (05:24)
[2022-09-21] MEDS: Normal Saline Flush 10 ML SYR IVP (05:25)
[2022-09-21 05:29] LABS: BE (Venous) -8 mmol/L (-2-3); HCO3 (Venous) 18 mmol/L (23-28); O2 Sat (Venous) 89 %; TCO2 (Venous) 16 mmol/L (24-29); pCO2 (Venous) 36 mmHg (41-51); pH (Venous) 7.31 (7.31-7.41); pO2 (Venous) 48 mmHg
[2022-09-21 05:32] LABS: Abs Immature Grans 0.04 10^3/uL (0.0-0.06); Absolute Basophil Count 0.05 10^3/uL (0.0-0.2); Absolute Eosinophil Count 0.01 10^3/uL (0.0-0.7); Absolute Lymphocyte Count 1.44 10^3/uL (1.2-3.4); Absolute Monocyte Count 1.12 10^3/uL (0.1-0.8); Absolute Neutrophil Count 9.93 10^3/uL (1.2-6.7); Basophils % 0.4; Eosinophils % 0.1; HCT 39.7 % (40.0-50.0); Immature Grans % 0.3; Lymphocytes % 11.4; MCH 31.3 pg (27.0-33.0); MCHC 35.3 % (32.0-36.0); MCV 89 fL (80-95); MPV 9.6 fL (8.0-11.0); Monocytes % 8.9; Neutrophils % 78.9; Platelet Count 229 10^3/uL (130-400); RBC 4.47 10^6/uL (4.36-5.78); RDW 11.9 % (11.8-14.1); RDW-SD 38.1 fL; WBC 12.59 10^3/uL (4.4-10.8)
[2022-09-21 05:47] LABS: Hemoglobin A1C 9.9 % (<5.7)
[2022-09-21 05:56] LABS: Anion Gap 9.5 mmol/L (3-11); BUN 16 mg/dL (7-18); CO2 20.5 mmol/L (21.0-32.0); CREATININE 1.3 mg/dL (0.70-1.30); Calcium 8.6 mg/dL (8.5-10.1); Chloride 107 mmol/L (98-107); Estimated GFR 75.32 (mL/min/1.73m2); Glucose 194 mg/dL (74-106); Magnesium 1.8 mg/dL (1.8-2.4); Potassium 4.1 mmol/L (3.5-5.1); Sodium 137 mmol/L (136-145); TSH (W/Ref FT4) 1.95 uIU/mL (0.36-3.74)
[2022-09-21] MEDS: Sucralfate 1 GM TAB PO ×2 (07:38→12:04)
--- NOTE | 2022-09-21 08:25 | PGE_ITS ---
Date of Service Date of service: 09/21/22 Time of Service: 08:25 Assessment and Plan Assessment and plan (1) DKA (diabetic ketoacidosis): Status: Acute Assessment and plan: Resume basal bolus insulin overlapping with his insulin drip. Repeat his BMP a couple hours after starting basal bolus insulin and stopping his insulin drip to be sure that his DKA does not return. We will begin feedings. He tried some solids and complained of severe throat pain. I looked in his throat and saw erythema but no exudate. We will get a strep swab put him on some Cepacol lozenges. I will downgrade his diet to soft foods. Professional time spent interviewing and examining patient, discussion of goals of care with hospital team (care management, nursing and consulting professional s) was 45 minutes. (2) Hematemesis: Status: Acute Assessment and plan: Probably gastritis possible esophagitis from severe retching. Cannot exclude the possibility of Dora-[place] tear although patient denies any abdominal pain with swallowing he says just hurts his throat. I will back off his diet to liquids and soft foods if he still has pain with swallowing I will make him n.p.o. and have surgery take a look at him. Subjective Subjective Interval history since last seen: Patient denies any nausea vomiting or abdominal pain. Patient is a type I diabetic has been on insulin for the last 6 years since she was diagnosed with diabetes mellitus. Normally gets his medications refilled at [facility] and [facility]. Apparently the pharmacist at [facility] give him a hard time about filling any needles. Normally gets his needles from a mail order through [facility]. He does not have any bolus insulin at home. He is just on NPH twice a day 30 units before breakfast and 30 units before supper. Blood sugars have been variable sometimes will have low readings into the 70s and other times of high readings into the 250s. Generally does not go above 250 until the last couple days was blood sugars have been in the 300-400. He has never been in DKA before. I briefly educated him about what DKA is and recommend that he get keto sticks to monitor his urine should he have further symptoms of nausea vomiting or abdominal pain or blood sugars remain elevated in spite of use of his insulin. I recommend he go on some bolus insulin with meals for carbohydrate coverage. We will ask staff development educator to meet with him. He is currently on insulin drip at 5 units an hour. His anion gap is normalized at 9.5 his carbon oxide level is now up to 20. We will start him on basal bolus insulin and overlap with his insulin drip before stopping insulin drip. He denies any fever, chills, cough, dysuria or open sores in his skin. He denies any nausea or vomiting or abdominal pain this morning and says that he is hungry. I told him that we would feed him and start him on basal/bolus insulin and then stop the insulin. Exam Narrative Exam Narrative: Young male sitting up in bed talking with his he is alert and oriented person place time circumstance. HEENT is remarkable for erythema of his uvula and palate but no exudates. Neck is supple no adenopathy Lungs are clear to auscultation Heart regular rate and rhythm without murmur rub or gallop Abdomen soft and nontender nondistended normal bowel sounds no guarding or rebound tenderness Extremities without peripheral cyanosis or edema feet without open sores he has normal pedal pulses Objective Last Vital Signs Temp 37.1 C 09/21/22 06:01 Pulse 88 09/21/22 07:44 Resp 16 09/21/22 07:44 BP 96/50 L 09/21/22 07:44 Pulse Ox 100 09/21/22 07:44 Laboratory Results - last 24 hr 09/20/22 09/20/22 09/20/22 14:00 14:00 14:50 WBC 16.21 H RBC 5.80 H Hgb 17.7 H Hct 53.2 H MCV 92 MCH 30.5 MCHC 33.3 RDW 11.7 L Plt Count 324 MPV 10.2 Immature Gran % 0.7 Neutrophils % 89.3 Lymphocytes % 6.2 Monocytes % 3.0 Eosinophils % 0.1 Basophils % 0.7 Nucleated RBC % 0.0 Absolute Neutrophils 14.48 H Absolute Lymphocytes 1.01 L Absolute Monocytes 0.49 Absolute Eosinophils 0.02 Absolute Basophils 0.11 VBG pH VBG pCO2 VBG pO2 VBG HCO3 VBG Total CO2 VBG O2 Saturation VBG Base Excess Sodium 136 Potassium 4.7 Chloride 97 L Carbon Dioxide 12.4 L Anion Gap 26.6 H BUN 28 H Creatinine 1.7 H Est GFR (CKD-EPI 2020) 54.59 Glucose 321 H Hemoglobin A1c Calcium 10.1 Phosphorus Magnesium 2.0 Total Bilirubin 0.7 AST 16 ALT 29 Alkaline Phosphatase 92 Troponin I Total Protein 9.6 H Albumin 5.4 H TSH Urine Color Urine Clarity Urine pH Ur Specific [place] Urine Protein Urine Ketones Urine Blood Urine Nitrite Urine Bilirubin Urine Urobilinogen Ur Leukocyte Esterase Urine RBC Urine WBC Ur Epithelial Cells Urine Crystals Urine Bacteria Urine Casts Urine Mucus Urine Other Ur Culture Indicated? Urine Glucose COVID-19 Source SARS-CoV-2 (PCR) Patient ABO/Rh O Positive Antibody Screen NEGATIVE 09/20/22 09/20/22 09/20/22 16:14 16:35 16:35 WBC RBC Hgb Hct MCV MCH MCHC RDW Plt Count MPV Immature Gran % Neutrophils % Lymphocytes % Monocytes % Eosinophils % Basophils % Nucleated RBC % Absolute Neutrophils Absolute Lymphocytes Absolute Monocytes Absolute Eosinophils Absolute Basophils VBG pH 7.07 L* VBG pCO2 29 L VBG pO2 68 VBG HCO3 9 L VBG Total CO2 8 L VBG O2 Saturation 91 VBG Base Excess < -15 L Sodium Potassium Chloride Carbon Dioxide Anion Gap BUN Creatinine Est GFR (CKD-EPI 2020) Glucose Hemoglobin A1c Calcium Phosphorus Magnesium Total Bilirubin AST ALT Alkaline Phosphatase Troponin I Total Protein Albumin TSH Urine Color Yellow Urine Clarity Clear Urine pH 5.5 Ur Specific [place] >= 1.030 H Urine Protein 30 H Urine Ketones >=160 H Urine Blood Trace-lysed H Urine Nitrite Negative Urine Bilirubin Negative Urine Urobilinogen 0.2 Ur Leukocyte Esterase Negative Urine RBC 0-2 Urine WBC 0-2 Ur Epithelial Cells Rare Urine Crystals Negative Urine Bacteria Negative Urine Casts Negative Urine Mucus Negative Urine Other Negative Ur Culture Indicated? No Urine Glucose 500 H COVID-19 Source Nasal/Nares SARS-CoV-2 (PCR) Negative Patient ABO/Rh Antibody Screen 09/20/22 09/20/22 09/20/22 18:47 18:47 18:47 WBC RBC Hgb 17.0 Hct 51.6 H MCV MCH MCHC RDW Plt Count MPV Immature Gran % Neutrophils % Lymphocytes % Monocytes % Eosinophils % Basophils % Nucleated RBC % Absolute Neutrophils Absolute Lymphocytes Absolute Monocytes Absolute Eosinophils Absolute Basophils VBG pH 7.02 L* VBG pCO2 35 L VBG pO2 42 VBG HCO3 9 L VBG Total CO2 9 L VBG O2 Saturation 73 VBG Base Excess < -15 L Sodium 136 Potassium 5.8 H D Chloride 101 Carbon Dioxide 10.6 L Anion Gap 24.4 H BUN 25 H Creatinine 1.5 H Est GFR (CKD-EPI 2020) 63.44 Glucose 301 H Hemoglobin A1c Calcium 9.5 Phosphorus 4.6 Magnesium 1.9 Total Bilirubin AST ALT Alkaline Phosphatase Troponin I Total Protein Albumin TSH Urine Color Urine Clarity Urine pH Ur Specific [place] Urine Protein Urine Ketones Urine Blood Urine Nitrite Urine Bilirubin Urine Urobilinogen Ur Leukocyte Esterase Urine RBC Urine WBC Ur Epithelial Cells Urine Crystals Urine Bacteria Urine Casts Urine Mucus Urine Other Ur Culture Indicated? Urine Glucose COVID-19 Source SARS-CoV-2 (PCR) Patient ABO/Rh Antibody Screen 09/20/22 09/20/22 09/20/22 18:47 22:15 22:15 WBC RBC Hgb Hct MCV MCH MCHC RDW Plt Count MPV Immature Gran % Neutrophils % Lymphocytes % Monocytes % Eosinophils % Basophils % Nucleated RBC % Absolute Neutrophils Absolute Lymphocytes Absolute Monocytes Absolute Eosinophils Absolute Basophils VBG pH 7.15 L* VBG pCO2 30 L VBG pO2 46 VBG HCO3 11 L VBG Total CO2 10 L VBG O2 Saturation 83 VBG Base Excess < -15 L Sodium 137 Potassium 5.0 Chloride 105 Carbon Dioxide 11.8 L Anion Gap 20.2 H BUN 19 H Creatinine 1.4 H Est GFR (CKD-EPI 2020) 68.91 Glucose 168 H Hemoglobin A1c Calcium 8.8 Phosphorus Magnesium 1.8 Total Bilirubin AST ALT Alkaline Phosphatase Troponin I < 50 Total Protein Albumin TSH Urine Color Urine Clarity Urine pH Ur Specific [place] Urine Protein Urine Ketones Urine Blood Urine Nitrite Urine Bilirubin Urine Urobilinogen Ur Leukocyte Esterase Urine RBC Urine WBC Ur Epithelial Cells Urine Crystals Urine Bacteria Urine Casts Urine Mucus Urine Other Ur Culture Indicated? Urine Glucose COVID-19 Source SARS-CoV-2 (PCR) Patient ABO/Rh Antibody Screen 09/20/22 09/21/22 09/21/22 22:15 02:05 02:05 WBC RBC Hgb Hct MCV MCH MCHC RDW Plt Count MPV Immature Gran % Neutrophils % Lymphocytes % Monocytes % Eosinophils % Basophils % Nucleated RBC % Absolute Neutrophils Absolute Lymphocytes Absolute Monocytes Absolute Eosinophils Absolute Basophils VBG pH 7.29 L VBG pCO2 30 L VBG pO2 80 VBG HCO3 15 L VBG Total CO2 13 L VBG O2 Saturation 97 VBG Base Excess -12 L Sodium 137 Potassium 4.5 Chloride 107 Carbon Dioxide 16.3 L Anion Gap 13.7 H BUN 17 Creatinine 1.3 Est GFR (CKD-EPI 2020) 75.32 Glucose 134 H Hemoglobin A1c Calcium 8.7 Phosphorus Magnesium 1.7 L Total Bilirubin AST ALT Alkaline Phosphatase Troponin I < 50 Total Protein Albumin TSH Urine Color Urine Clarity Urine pH Ur Specific [place] Urine Protein Urine Ketones Urine Blood Urine Nitrite Urine Bilirubin Urine Urobilinogen Ur Leukocyte Esterase Urine RBC Urine WBC Ur Epithelial Cells Urine Crystals Urine Bacteria Urine Casts Urine Mucus Urine Other Ur Culture Indicated? Urine Glucose COVID-19 Source SARS-CoV-2 (PCR) Patient ABO/Rh Antibody Screen 09/21/22 09/21/22 09/21/22 02:05 05:17 05:17 WBC RBC Hgb 14.2 D Hct 41.4 MCV MCH MCHC RDW Plt Count MPV Immature Gran % Neutrophils % Lymphocytes % Monocytes % Eosinophils % Basophils % Nucleated RBC % Absolute Neutrophils Absolute Lymphocytes Absolute Monocytes Absolute Eosinophils Absolute Basophils VBG pH 7.31 VBG pCO2 36 L VBG pO2 48 VBG HCO3 18 L VBG Total CO2 16 L VBG O2 Saturation 89 VBG Base Excess -8 L Sodium Potassium Chloride Carbon Dioxide Anion Gap BUN Creatinine Est GFR (CKD-EPI 2020) Glucose Hemoglobin A1c 9.9 H Calcium Phosphorus Magnesium Total Bilirubin AST ALT Alkaline Phosphatase Troponin I Total Protein Albumin TSH Urine Color Urine Clarity Urine pH Ur Specific [place] Urine Protein Urine Ketones Urine Blood Urine Nitrite Urine Bilirubin Urine Urobilinogen Ur Leukocyte Esterase Urine RBC Urine WBC Ur Epithelial Cells Urine Crystals Urine Bacteria Urine Casts Urine Mucus Urine Other Ur Culture Indicated? Urine Glucose COVID-19 Source SARS-CoV-2 (PCR) Patient ABO/Rh Antibody Screen 09/21/22 09/21/22 05:17 05:17 WBC 12.59 H RBC 4.47 Hgb 14.0 Hct 39.7 L MCV 89 MCH 31.3 MCHC 35.3 RDW 11.9 Plt Count 229 MPV 9.6 Immature Gran % 0.3 Neutrophils % 78.9 Lymphocytes % 11.4 Monocytes % 8.9 Eosinophils % 0.1 Basophils % 0.4 Nucleated RBC % 0.0 Absolute Neutrophils 9.93 H Absolute Lymphocytes 1.44 Absolute Monocytes 1.12 H Absolute Eosinophils 0.01 Absolute Basophils 0.05 VBG pH VBG pCO2 VBG pO2 VBG HCO3 VBG Total CO2 VBG O2 Saturation VBG Base Excess Sodium 137 Potassium 4.1 Chloride 107 Carbon Dioxide 20.5 L Anion Gap 9.5 BUN 16 Creatinine 1.3 Est GFR (CKD-EPI 2020) 75.32 Glucose 194 H Hemoglobin A1c Calcium 8.6 Phosphorus Magnesium 1.8 Total Bilirubin AST ALT Alkaline Phosphatase Troponin I Total Protein Albumin TSH 1.95 Urine Color Urine Clarity Urine pH Ur Specific [place] Urine Protein Urine Ketones Urine Blood Urine Nitrite Urine Bilirubin Urine Urobilinogen Ur Leukocyte Esterase Urine RBC Urine WBC Ur Epithelial Cells Urine Crystals Urine Bacteria Urine Casts Urine Mucus Urine Other Ur Culture Indicated? Urine Glucose COVID-19 Source SARS-CoV-2 (PCR) Patient ABO/Rh Antibody Screen Time Spent with Patient Time Spent with Patient: 35-49 minutes Time was spent: preparing to see the patient(eg.review tests), obtaining and/or reviewing separately otained hiistory, ordering medications,tests, procedures, indepentently interpreting results, counseling the patient and care coordination
--- NOTE | 2022-09-21 08:53 | PDOC.CMIN ---
- If Service Date Differs Date of service: 09/21/22 Time of Service: 08:53 Care Management Initial Assess REASON FOR HOSPITALIZATION:: DKA PAST MEDICAL HISTORY/PAST SURGICAL HISTORY:: All Active Problems (Updated 09/20/22 @ 16:46 by Meena Alvarez MD). Discharge planning issues (Acute). DVT prophylaxis (Acute). DKA (diabetic ketoacidosis) (Acute). Hematemesis (Acute). Nausea & vomiting (Acute). Shoulder pain, left (Acute). Low back strain (Acute). Headache (Acute). Abdominal symptoms (Acute). Loose stools (Acute). Anxiety (Chronic). Annual physical exam (Acute). Diabetes mellitus (Chronic). Influenza A (Acute). Medical History (Updated 09/20/22 @ 16:46 by Meena Alvarez MD). Diabetes mellitus. Surgical History (Updated 09/20/22 @ 17:35 by Meena Alvarez MD). No pertinent past surgical history PREVIOUS FUNCTIONAL STATUS/SOCIAL/FAMILY SUPPORTS:: Sung lives in [place], [place] with his Myra Marcus. They have no children. Sung works at [employer] in [facility] and is independent at baseline.. CURRENT FUNCTIONAL STATUS:: Sung was sitting up in bed visiting with his when CM met with him. He was alert and pleasant in interaction. Sung had been told he would be discharged today. He does not currently have insurance. With his approval, sent a referral to [employer] to discuss options for obtaining insurance. He stated that he cannot afford to get it from work as it would cost $250/week. LONA also provided him with an application for [facility]'s Patient Financial Assistance Program ADVANCE DIRECTIVES:: none on file Has patient been provided with info about the portal/API?: Yes Did the patient sign up for the portal?: Yes (previously) CODE STATUS:: Full Code INSURANCE COVERAGE / FINANCIAL ISSUES:: self pay. Referral sent to [employer]. Provided with [facility] Patient Financial Assist packet. States he can afford his medication CURRENT HOME/COMMUNITY SERVICES/EQUIPMENT:: none PRIMARY CARE PHYSICIAN:: Matthew Barker POTENTIAL DISCHARGE NEEDS:: Follow up with PCP and plan of care PATIENT/FAMILY EDUCATION NEEDS:: Review of discharge instructions, limitations, medications, diet, follow up beto, discuss Ask Me Three TRANSPORTATION:: via private vehicle with family PLAN:: Sung alvarez be discharged home with no new services. He will follow up with community providers and plan of care anmd transport with family.
[2022-09-21] MEDS: Insulin Aspart 300 UNITS/3 ML PEN SC ×3 (08:54→12:38)
[2022-09-21] MEDS: Insulin Glargine 300 UNITS/3 ML PEN 30 UNITS SC (08:57)
[2022-09-21 12:27] LABS: Anion Gap 9.5 mmol/L (3-11); BUN 16 mg/dL (7-18); CO2 21.5 mmol/L (21.0-32.0); CREATININE 1.1 mg/dL (0.70-1.30); Calcium 8.7 mg/dL (8.5-10.1); Chloride 106 mmol/L (98-107); Estimated GFR 92.04 (mL/min/1.73m2); Glucose 193 mg/dL (74-106); Potassium 4.2 mmol/L (3.5-5.1); Sodium 137 mmol/L (136-145)
--- NOTE | 2022-09-21 13:46 | W.PM.DS.N ---
Date of service: 09/21/22 Time of Service: 13:46 DS: Diagnosis Discharge Diagnosis (1) DKA (diabetic ketoacidosis): Status: Acute Asessment and Plan: type I diabetic who ran out of his insulin needles x 4 days presented w/ sx of nausea and repeated emesis (20+ episodes) including some hematemesis. He was found to be in DKA w/ glucose of 321 and anion gap of 26.6 and HCO3 of 12 and in acute azotemia w/ BUN 28 and creatinine 1.7, pH of 7.07 on a VBG. he was given antiemetics, given iv fluids including LR and subsequent D5NS w/ KCl supplementation to correct hypokalemia. He was put on protonix and carafate. He was begun on an insulin dripSerial labs were monitored. HIs wretching stopped and his anion gap and acidosis normalized overnight and his hyperglycemia resolved. The next day his diet was advanced however he did complain of odynophagia w/ eating solids and his diet was downgraded to minced and moist solids w/ thin liquids which he tolerated well. He was watched for another half a day w/ repeat BMP repeated after he has been taken off the insulin drip for a few hours and had been put on basal/bolus insulin therapy. merchant mill utility worker met with him to discuss sick day management including monitoring and treating dka. He was discharged home in improved condition on a regimen of continuing his him dose of NPH 30 units bid and w/ the added Humulin R 1 unit per 10 gm of carbohydrates w/ each meal along w/ the use of [facility] moderate insulin dose sliding scale for correction of any hyperglycemia. Follow up w/ his PCP next week. Follow up w/ director business travel as outpatient. (2) Hematemesis: Status: Acute Asessment and Plan: patient declined surgical referral for EGD. He was sent home w/ Rx for omeprazole 40 mg daily along w/ carafate 1 gm AC & HS. Discharge Plan Disposition Patient Disposition: Home Condition: Good Discharge Details Reason For Visit: DKA,Dehydration,Acute Kidney Injury Admit Date/Time: 09/20/22 16:26 Admit Provider: Meena Alvarez Attending Provider: Meena Alvarez Primary Care Provider: Matthew Lama Home Meds and New Rx's Prescriptions: New Humulin R Regular U-100 Insuln 100 unit/mL solution 1 sliding scale dose subcut USEASDIRECTD Qty: 10 0RF Rx Instructions: 1 unit per 10 gm carbohydrates w/ each meal and also follow moderate insulin dose sliding scale per [facility] pharmacy sucralfate [Carafate] 1 gram tablet 1 g PO QACHS Qty: 120 0RF omeprazole 40 mg capsule,delayed release(DR/EC) 40 mg PO DAILY Qty: 30 0RF Continued insulin NPH isoph U-100 human 100 unit/mL suspension 30 unit subcut BID No Action (DME) insulin syringe-needle U-100 0.3 mL 31 gauge x 1/4 syringe See Rx Instructions .ROUTE .MEDSUPPLY Qty: 100 4RF Rx Instructions: As directed Discharge Instructions Instructions: Insulin Regular (By injection), Diabetic Ketoacidosis (DC), Diabetes Type 1: Management (DC) Additional Instructions: continue your NPH injections 30 units twice daily at breakfast and supper but add Humulin R (short acting insulin) w/ meals. Use 1 unit per 10 gm of carbohydrates or up to 3 units for small carb meals, 6 units for medium carb meals or up to 9 units per large carb meals (90 gm of carbohydrates or higher). Also follow the [facility] pharmacy moderate dose insulin sliding scale as a guide for coverage of glucose readings that are out of range, i.e. for glucose readings of 150 or higher. Referrals: Matthew Lama, XIANG [Primary Care Provider] - 09/27/22 8:20 am Krissy Cuellar [BIOTECH PRODUCTION SPECIALIST] - (Please call Energy Conservation EngineerKrissy at [phone] to schedule a follow up appointment for within two weeks. ) Activity:: Activity as Tolerated Equipment/Supplies:: No Equipment Needed Diet:: Carb Counting Discharge Orders Discharge Orders: Discharge Order (Routine); Ordered 09/21/22 Ordered By: Gen Uribe Discharge Data Discharge Date/Time-TO BE ENTERED AT DEPARTURE: 09/21/22 14:40 DS: Summary Time Spent with Patient providing and/or coordinating discharge services: Less than 30 minutes Specific discharge activities: Interview/exam of patient; review of discharge instructions, completion of prescriptions/discharge instructions; discussion w/ nursing and CM; documentation of hospital visit Status at Discharge Functional status at discharge: independent ambulation Overall status at discharge: patient is back to baseline Mental Status: mental status grossly normal Speech and Movement: speech and movement normal Mood: congruent mood Affect: normal affect Exam Narrative Exam Narrative: Young male sitting up in bed talking with his he is alert and oriented person place time circumstance. HEENT is remarkable for erythema of his uvula and palate but no exudates. Neck is supple no adenopathy Lungs are clear to auscultation Heart regular rate and rhythm without murmur rub or gallop Abdomen soft and nontender nondistended normal bowel sounds no guarding or rebound tenderness Extremities without peripheral cyanosis or edema feet without open sores he has normal pedal pulses Psych Mental Status: mental status grossly normal Speech and Movement: speech and movement normal Mood: congruent mood Affect: normal affect DS: Data Vitals/I&O Vitals and I&O: Vital Signs Temperature 37.1 C 09/21/22 06:01 Temperature Source Temporal Artery Scan 09/21/22 04:00 Pulse 100 H 09/21/22 12:21 Pulse 97 H 09/21/22 12:20 Respiratory Rate 18 09/21/22 12:21 Respiratory Effort Non-Labored 09/21/22 12:21 Respiratory Depth Normal 09/21/22 12:21 Respiratory Pattern Normal 09/21/22 12:21 Blood Pressure 98/54 L 09/21/22 12:21 Blood Pressure Mean 68 09/21/22 12:21 Blood Pressure Position Supine 09/20/22 19:28 Pulse Oximetry 99 09/21/22 12:21 Oxygen Delivery Method Room Air 09/21/22 12:21 Oxygen Flow Rate 0 09/21/22 12:21 Pain Level 0 09/21/22 12:21 Intake & Output 09/20/22 09/21/22 09/21/22 23:59 11:59 23:59 Intake Total 3163.791 / 3163.791 2235.215 / 2585.215 350 / 2585.215 Output Total 1750 / 1750 900 / 900 Balance 1413.791 / 7755.709 0429.215 / 1685.215 350 / 1685.215 Weight 69.5 kg 74.5 kg Intake: IV 3163.791 / 3163.791 1984.215 / 1984.215 Oral 250 / 600 350 / 600 Output: Urine 1750 / 1750 900 / 900 Other: Urine Color Yellow Yellow Urine Appearance Clear Urine Odor Normal Strong Stool Characteristics Soft Emesis Description Coffee Grounds Voiding Methods Urinal Data Completed and Pending Completed studies during hospitalization [Text1]: chest xray: FINDINGS: MEDIASTINUM: Normal.? HEART: Normal. PULMONARY VASCULATURE: Normal. LUNGS: Clear. ? PLEURAL SPACE: No pleural effusion or pneumothorax. BONE:Within normal limits for the patient's age.? OTHER FINDINGS:Normal.? IMPRESSION: No acute pulmonary findings. Labs on day of discharge: Labs from last 24 hours 09/21/22 09/21/22 09/21/22 12:00 05:17 05:17 WBC 12.59 H RBC 4.47 Hgb 14.0 Hct 39.7 L MCV 89 MCH 31.3 MCHC 35.3 RDW 11.9 Plt Count 229 MPV 9.6 Immature Gran % 0.3 Neutrophils % 78.9 Lymphocytes % 11.4 Monocytes % 8.9 Eosinophils % 0.1 Basophils % 0.4 Nucleated RBC % 0.0 Absolute Neutrophils 9.93 H Absolute Lymphocytes 1.44 Absolute Monocytes 1.12 H Absolute Eosinophils 0.01 Absolute Basophils 0.05 VBG pH VBG pCO2 VBG pO2 VBG HCO3 VBG Total CO2 VBG O2 Saturation VBG Base Excess Sodium 137 137 Potassium 4.2 4.1 Chloride 106 107 Carbon Dioxide 21.5 20.5 L Anion Gap 9.5 9.5 BUN 16 16 Creatinine 1.1 1.3 Est GFR (CKD-EPI 2020) 92.04 75.32 Glucose 193 H 194 H Hemoglobin A1c Calcium 8.7 8.6 Phosphorus Magnesium 1.8 Total Bilirubin AST ALT Alkaline Phosphatase Troponin I Total Protein Albumin TSH 1.95 Urine Color Urine Clarity Urine pH Ur Specific [place] Urine Protein Urine Ketones Urine Blood Urine Nitrite Urine Bilirubin Urine Urobilinogen Ur Leukocyte Esterase Urine RBC Urine WBC Ur Epithelial Cells Urine Crystals Urine Bacteria Urine Casts Urine Mucus Urine Other Ur Culture Indicated? Urine Glucose COVID-19 Source SARS-CoV-2 (PCR) Patient ABO/Rh Antibody Screen 09/21/22 09/21/22 09/21/22 05:17 05:17 02:05 WBC RBC Hgb 14.2 D Hct 41.4 MCV MCH MCHC RDW Plt Count MPV Immature Gran % Neutrophils % Lymphocytes % Monocytes % Eosinophils % Basophils % Nucleated RBC % Absolute Neutrophils Absolute Lymphocytes Absolute Monocytes Absolute Eosinophils Absolute Basophils VBG pH 7.31 VBG pCO2 36 L VBG pO2 48 VBG HCO3 18 L VBG Total CO2 16 L VBG O2 Saturation 89 VBG Base Excess -8 L Sodium Potassium Chloride Carbon Dioxide Anion Gap BUN Creatinine Est GFR (CKD-EPI 2020) Glucose Hemoglobin A1c 9.9 H Calcium Phosphorus Magnesium Total Bilirubin AST ALT Alkaline Phosphatase Troponin I Total Protein Albumin TSH Urine Color Urine Clarity Urine pH Ur Specific [place] Urine Protein Urine Ketones Urine Blood Urine Nitrite Urine Bilirubin Urine Urobilinogen Ur Leukocyte Esterase Urine RBC Urine WBC Ur Epithelial Cells Urine Crystals Urine Bacteria Urine Casts Urine Mucus Urine Other Ur Culture Indicated? Urine Glucose COVID-19 Source SARS-CoV-2 (PCR) Patient ABO/Rh Antibody Screen 09/21/22 09/21/22 09/20/22 02:05 02:05 22:15 WBC RBC Hgb Hct MCV MCH MCHC RDW Plt Count MPV Immature Gran % Neutrophils % Lymphocytes % Monocytes % Eosinophils % Basophils % Nucleated RBC % Absolute Neutrophils Absolute Lymphocytes Absolute Monocytes Absolute Eosinophils Absolute Basophils VBG pH 7.29 L VBG pCO2 30 L VBG pO2 80 VBG HCO3 15 L VBG Total CO2 13 L VBG O2 Saturation 97 VBG Base Excess -12 L Sodium 137 Potassium 4.5 Chloride 107 Carbon Dioxide 16.3 L Anion Gap 13.7 H BUN 17 Creatinine 1.3 Est GFR (CKD-EPI 2020) 75.32 Glucose 134 H Hemoglobin A1c Calcium 8.7 Phosphorus Magnesium 1.7 L Total Bilirubin AST ALT Alkaline Phosphatase Troponin I < 50 Total Protein Albumin TSH Urine Color Urine Clarity Urine pH Ur Specific [place] Urine Protein Urine Ketones Urine Blood Urine Nitrite Urine Bilirubin Urine Urobilinogen Ur Leukocyte Esterase Urine RBC Urine WBC Ur Epithelial Cells Urine Crystals Urine Bacteria Urine Casts Urine Mucus Urine Other Ur Culture Indicated? Urine Glucose COVID-19 Source SARS-CoV-2 (PCR) Patient ABO/Rh Antibody Screen 09/20/22 09/20/22 09/20/22 22:15 22:15 18:47 WBC RBC Hgb Hct MCV MCH MCHC RDW Plt Count MPV Immature Gran % Neutrophils % Lymphocytes % Monocytes % Eosinophils % Basophils % Nucleated RBC % Absolute Neutrophils Absolute Lymphocytes Absolute Monocytes Absolute Eosinophils Absolute Basophils VBG pH 7.15 L* VBG pCO2 30 L VBG pO2 46 VBG HCO3 11 L VBG Total CO2 10 L VBG O2 Saturation 83 VBG Base Excess < -15 L Sodium 137 Potassium 5.0 Chloride 105 Carbon Dioxide 11.8 L Anion Gap 20.2 H BUN 19 H Creatinine 1.4 H Est GFR (CKD-EPI 2020) 68.91 Glucose 168 H Hemoglobin A1c Calcium 8.8 Phosphorus Magnesium 1.8 Total Bilirubin AST ALT Alkaline Phosphatase Troponin I < 50 Total Protein Albumin TSH Urine Color Urine Clarity Urine pH Ur Specific [place] Urine Protein Urine Ketones Urine Blood Urine Nitrite Urine Bilirubin Urine Urobilinogen Ur Leukocyte Esterase Urine RBC Urine WBC Ur Epithelial Cells Urine Crystals Urine Bacteria Urine Casts Urine Mucus Urine Other Ur Culture Indicated? Urine Glucose COVID-19 Source SARS-CoV-2 (PCR) Patient ABO/Rh Antibody Screen 09/20/22 09/20/22 09/20/22 18:47 18:47 18:47 WBC RBC Hgb 17.0 Hct 51.6 H MCV MCH MCHC RDW Plt Count MPV Immature Gran % Neutrophils % Lymphocytes % Monocytes % Eosinophils % Basophils % Nucleated RBC % Absolute Neutrophils Absolute Lymphocytes Absolute Monocytes Absolute Eosinophils Absolute Basophils VBG pH 7.02 L* VBG pCO2 35 L VBG pO2 42 VBG HCO3 9 L VBG Total CO2 9 L VBG O2 Saturation 73 VBG Base Excess < -15 L Sodium 136 Potassium 5.8 H D Chloride 101 Carbon Dioxide 10.6 L Anion Gap 24.4 H BUN 25 H Creatinine 1.5 H Est GFR (CKD-EPI 2020) 63.44 Glucose 301 H Hemoglobin A1c Calcium 9.5 Phosphorus 4.6 Magnesium 1.9 Total Bilirubin AST ALT Alkaline Phosphatase Troponin I Total Protein Albumin TSH Urine Color Urine Clarity Urine pH Ur Specific [place] Urine Protein Urine Ketones Urine Blood Urine Nitrite Urine Bilirubin Urine Urobilinogen Ur Leukocyte Esterase Urine RBC Urine WBC Ur Epithelial Cells Urine Crystals Urine Bacteria Urine Casts Urine Mucus Urine Other Ur Culture Indicated? Urine Glucose COVID-19 Source SARS-CoV-2 (PCR) Patient ABO/Rh Antibody Screen 09/20/22 09/20/22 09/20/22 16:35 16:35 16:14 WBC RBC Hgb Hct MCV MCH MCHC RDW Plt Count MPV Immature Gran % Neutrophils % Lymphocytes % Monocytes % Eosinophils % Basophils % Nucleated RBC % Absolute Neutrophils Absolute Lymphocytes Absolute Monocytes Absolute Eosinophils Absolute Basophils VBG pH 7.07 L* VBG pCO2 29 L VBG pO2 68 VBG HCO3 9 L VBG Total CO2 8 L VBG O2 Saturation 91 VBG Base Excess < -15 L Sodium Potassium Chloride Carbon Dioxide Anion Gap BUN Creatinine Est GFR (CKD-EPI 2020) Glucose Hemoglobin A1c Calcium Phosphorus Magnesium Total Bilirubin AST ALT Alkaline Phosphatase Troponin I Total Protein Albumin TSH Urine Color Yellow Urine Clarity Clear Urine pH 5.5 Ur Specific [place] >= 1.030 H Urine Protein 30 H Urine Ketones >=160 H Urine Blood Trace-lysed H Urine Nitrite Negative Urine Bilirubin Negative Urine Urobilinogen 0.2 Ur Leukocyte Esterase Negative Urine RBC 0-2 Urine WBC 0-2 Ur Epithelial Cells Rare Urine Crystals Negative Urine Bacteria Negative Urine Casts Negative Urine Mucus Negative Urine Other Negative Ur Culture Indicated? No Urine Glucose 500 H COVID-19 Source Nasal/Nares SARS-CoV-2 (PCR) Negative Patient ABO/Rh Antibody Screen 09/20/22 09/20/22 09/20/22 14:50 14:00 14:00 WBC 16.21 H RBC 5.80 H Hgb 17.7 H Hct 53.2 H MCV 92 MCH 30.5 MCHC 33.3 RDW 11.7 L Plt Count 324 MPV 10.2 Immature Gran % 0.7 Neutrophils % 89.3 Lymphocytes % 6.2 Monocytes % 3.0 Eosinophils % 0.1 Basophils % 0.7 Nucleated RBC % 0.0 Absolute Neutrophils 14.48 H Absolute Lymphocytes 1.01 L Absolute Monocytes 0.49 Absolute Eosinophils 0.02 Absolute Basophils 0.11 VBG pH VBG pCO2 VBG pO2 VBG HCO3 VBG Total CO2 VBG O2 Saturation VBG Base Excess Sodium 136 Potassium 4.7 Chloride 97 L Carbon Dioxide 12.4 L Anion Gap 26.6 H BUN 28 H Creatinine 1.7 H Est GFR (CKD-EPI 2020) 54.59 Glucose 321 H Hemoglobin A1c Calcium 10.1 Phosphorus Magnesium 2.0 Total Bilirubin 0.7 AST 16 ALT 29 Alkaline Phosphatase 92 Troponin I Total Protein 9.6 H Albumin 5.4 H TSH Urine Color Urine Clarity Urine pH Ur Specific [place] Urine Protein Urine Ketones Urine Blood Urine Nitrite Urine Bilirubin Urine Urobilinogen Ur Leukocyte Esterase Urine RBC Urine WBC Ur Epithelial Cells Urine Crystals Urine Bacteria Urine Casts Urine Mucus Urine Other Ur Culture Indicated? Urine Glucose COVID-19 Source SARS-CoV-2 (PCR) Patient ABO/Rh O Positive Antibody Screen NEGATIVE 09/21/22 09:20 Tonsil - Not Specified Group A Streptococcus Culture - Pending Preliminary micro results at discharge 09/21/22 09:20 Group A Streptococcus Culture - Pending Tonsil - Not Specified PFSH All Active Problems Discharge planning issues (Acute) DVT prophylaxis (Acute) DKA (diabetic ketoacidosis) (Acute) Hematemesis (Acute) Nausea & vomiting (Acute) Shoulder pain, left (Acute) Low back strain (Acute) Headache (Acute) Abdominal symptoms (Acute) Loose stools (Acute) Anxiety (Chronic) Annual physical exam (Acute) Diabetes mellitus (Chronic) Influenza A (Acute) Medical History Diabetes mellitus Surgical History No pertinent past surgical history Family History Mother Asthma Depression Diabetes Heart disease Hypertension Father Seizures Sister Seizures Social History Smoking/Tobacco Use Status: Former Tobacco Use Second Hand Exposure: Yes Smoking risk assessment performed?: Yes Alcohol Intake: never Drug use: Daily Substance use type: marijuana Caregiver/Support person: No Household members: spouse Communication Needs: None Do you need help understanding health information?: Never Pets and animals: Yes Pets and animals: cat(s) Sexually active: Yes Do you think of yourself as: straight/heterosexual Current gender identity: male What is your relationship status?: How often do you talk on the phone with friends or family?: once per week How often do you get together with friends or relatives?: once per week How often do you attend rastafarian or yazidism services?: decline to answer Do you belong to any clubs or organized social groups?: no Panel score (0-1 are the most socially isolated patients): 1 What type of physical activity do you participate in: walking Duration: other Frequency: daily Louise/Mormonism: Sikhism Seatbelt use: always Drive intox or ride w/intox equipment driver: No Do you feel safe at home: Yes Do you feel safe in your relationship?: Yes Time Spent with Patient Time Spent with Patient: <45 minutes Time was spent: ordering medications,tests, procedures, referring, communicating with other health career technical education teacher, indepentently interpreting results, counseling the patient and care coordination
--- NOTE | 2022-09-21 13:57 | W.INDIABCONS ---
Date of service: 09/21/22 Time of Service: 13:57 Diabetes Inpatient Consult Reason for Visit: DM1 DESCRIPTION/ASSESSMENT: Met with Sung in ICU today. Admitted last night with DKA secondary to running out of needles. Buys Dm supplies at [facility] and gets needles on [employer]. Has been taking 30 u NPH before breakfast and dinner for last couple of years. Reports hypoglycemia wakes him up at night at times. Post Prandial BS mostly < 150 mg/dl. Weight has been stable. A1C: 9.9% indicates average blood sugars 180-200 mg/dl and not at target INTERVENTION: Provided information on sick day mangement, hypoglycemia/hyperglycemia treatment. Very limited as only uses NPH insulin- reviewed risks of hypoglycemia and insulin stacking with NPH. Encouraged follow up with Alejandra for insurance options. Provided written material and contact information. PLAN: Encouraged Sung to follow up abiel Fraser. Time Spent in Nutritional Counseling and Treatment: 10
--- NOTE | 2022-09-21 14:02 | PDOC.CMDIS ---
- If Service Date Differs Date of service: 09/21/22 Time of Service: 14:03 LACE Index Scoring Tool - Questions: Length of Stay (in days): 1 Acuity (Admit via E.D.?): Yes Comorbidities: Diabetes w/o Complication E.D. Visits: 1 - Answers: Total Score: 6 Risk of Readmission: Low Risk Care Management Discharge Reason for Hospitalization: DKA Discharge Plan: Sung will be discharged home with no new services. He will follow up with community providers and plan of care and transport with his . Patient/Family Education Needs: Review of discharge instructions, limitations, medications, diet, follow up beto, discuss Ask Me Three
== END 2022-09-21 14:40 | disposition home or self-care (01) | DRG 638 ==
LOC: ER 16:38 → ICU 19:08
PROVIDERS: Internal Medicine; Student in an Organized Health Care Education/Training Program; Admitting Provider Internal Medicine; Emergency Provider Emergency Medicine; PCP Nurse Practitioner Family; Visit Provider Internal Medicine
DX: E10.10 Type 1 diabetes mellitus with ketoacidosis without coma (principal); K92.0 Hematemesis; E86.0 Dehydration; R00.0 Tachycardia, unspecified; E87.6 Hypokalemia; M54.50 Low back pain, unspecified; R51.9 Headache, unspecified; F41.9 Anxiety disorder, unspecified; M25.512 Pain in left shoulder; Z87.891 Personal history of nicotine dependence; F12.90 Cannabis use, unspecified, uncomplicated
CPT/HCPCS: 36415; 36416; 80048; 80053; 82805; 82962; 86850; 86900; 86901; 87635; 93005; 96361; 96374; 96375; 99285; 71045; 81003; 81015; 83036; 83735; 84100; 84443; 84484; 85014; 85018; 85025; 87081; 93010; 99238; 99291; J2405

== ENCOUNTER 2022-11-04 05:00 | Emergency (ER) | payer SELFPAY ==
[2022-11-04] VITALS (54 sets, daily range): BP systolic 97–118; BP diastolic 56–75; PULSE 87–134; RESP 12–24; TEMP 37.4; O2SAT 95–99
--- NOTE | 2022-11-04 05:00 | RT.EKG_ITS ---
APPROVED REPORT Exam: Resting ECG Reason for Exam: high heart rate Patient Location: E HR:128 bpm ECG Measurements Heart Rate 128 AXIS KS 143 P 78 QRSd 91 QRS 125 QT 303 T 57 QTc 443 Conclusion Sinus tachycardia...rate> 99 Atrial premature complex...SV complex w/ short R-R interval Right axis deviation...QRS axis (100,269) ST elev, probable normal early repol pattern...ST elevation, age<55. Sinus. Normal axis. No STEMI. I have reviewed and interpreted ECG and agree with software generated interpretation.
--- NOTE | 2022-11-04 05:14 | ED.GENADUL_ITS ---
Discharge Plan Disposition Patient Disposition: Home Condition: Improving Discharge Details Clinical Impression: Diabetes mellitus, Dehydration, Hyperglycemia Primary Care Provider: Matthew Lama ED Provider: uSng Basilio Home Meds and New Rx's Prescriptions: Continued (DME) insulin syringe-needle U-100 0.3 mL 31 gauge x 1/4 syringe See Rx Instructions .ROUTE .MEDSUPPLY Qty: 100 4RF Rx Instructions: As directed insulin NPH isoph U-100 human 100 unit/mL suspension 30 unit subcut BID (DME) FreeStyle [place] 3 Sensor Device See Rx Instructions .Route Qty: 1 0RF Rx Instructions: As directed (DME) FreeStyle Kodi 2 [place] Misc See Rx Instructions .Route Qty: 1 0RF Rx Instructions: As directed [place] for FreeStyle Kodi 3 Humulin R Regular U-100 Insuln 100 unit/mL solution 1 sliding scale dose subcut USEASDIRECTD Qty: 10 0RF Rx Instructions: 1 unit per 10 gm carbohydrates w/ each meal and also follow moderate insulin dose sliding scale per [facility] pharmacy sucralfate [Carafate] 1 gram tablet 1 g PO QACHS Qty: 120 0RF omeprazole 40 mg capsule,delayed release(DR/EC) 40 mg PO DAILY Qty: 30 0RF Discharge Instructions Instructions: Dehydration (ED), Diabetic Hyperglycemia (ED) Additional Instructions: Small, frequent sips of fluids today to maintain hydration. Home to rest today and off work if needed. Return to the emergency department for any acute concerns. Stand Alone Forms: Work Release Medical Decision Making <Jyoti Pearl DO - Last Filed: 11/04/22 08:00> 0520 -- 32-year-old male with a history of type 1 diabetes presents with vomiting and diarrhea since yesterday with high blood sugar of 208 this morning. Heart rate 130s on arrival. Remainder of vitals reassuring. EKG notes a rate of 128, sinus, normal axis and nondiagnostic. Patient appears anxious. Normal ENT exam. Abdomen soft and nontender. Concern for DKA. We will place an IV, bolus IV fluids, IV Zofran, IV Ativan, screening labs including VBG, urinalysis and FLUVID. 0600 -- labs reviewed. Glucose 324. VBG notes a pH of 7.38, bicarb of 22. Anion gap 13.4. Normal white blood cell count. Heart rate is improving down into the 90s. Patient feels better. Will give 7 units of insulin SC and continue IV fluid hydration. Patient may be able to be improved with fluids and insulin here as he does not meet full criteria for DKA at this time. 0700 -- Fingerstick improving to 256. Pt reassessed and he feels better. Will continue IV fluid hydration and recheck vbg and bmp after 2nd liter IVF done. 0800 -- Case endorsed to oncoming provider to recheck labs and if glucose and electrolytes continuing to improve improved and no signs of DKA and patient feels better, will plan for discharge to home. Medical Records Medical records reviewed: Yes I reviewed the patient's medical records. ECG Data Attestation: I personally reviewed and interpreted this ECG (s) as follows: Interpretation: rate of 128, sinus, normal axis, normal intervals, no stemi. <Sung Basilio MD - Last Filed: 11/04/22 10:05> Lab Data Lab results reviewed: Yes I reviewed the patient's lab results. Labs: Laboratory Results - last 24 hr 11/04/22 11/04/22 11/04/22 05:15 05:15 05:15 WBC 7.62 RBC 5.45 Hgb 16.5 Hct 50.6 H MCV 93 MCH 30.3 MCHC 32.6 RDW 12.3 Plt Count 207 MPV 9.9 Immature Gran % 0.5 Neutrophils % 88.1 Lymphocytes % 4.7 Monocytes % 5.9 Eosinophils % 0.3 Basophils % 0.5 Nucleated RBC % 0.0 Absolute Neutrophils 6.71 H Absolute Lymphocytes 0.36 L Absolute Monocytes 0.45 Absolute Eosinophils 0.02 Absolute Basophils 0.04 VBG pH 7.30 L VBG pCO2 45 VBG pO2 30 VBG HCO3 22 L VBG Total CO2 20 L VBG O2 Saturation 56 VBG Base Excess -4 L Sodium 136 Potassium 4.2 Chloride 99 Carbon Dioxide 23.6 Anion Gap 13.4 H BUN 19 H Creatinine 1.3 Est GFR (CKD-EPI 2020) 74.85 Glucose 324 H Calcium 9.5 Total Bilirubin 1.3 H AST 13 L ALT 23 Alkaline Phosphatase 76 Total Protein 8.7 H Albumin 4.8 Lipase 15 L Urine Color Urine Clarity Urine pH Ur Specific [place] Urine Protein Urine Ketones Urine Blood Urine Nitrite Urine Bilirubin Urine Urobilinogen Ur Leukocyte Esterase Urine Glucose COVID-19 Source SARS-CoV-2 (PCR) Influenza Type A (PCR) Influenza Type B (PCR) RSV (PCR) 11/04/22 11/04/22 11/04/22 05:30 06:47 07:52 WBC RBC Hgb Hct MCV MCH MCHC RDW Plt Count MPV Immature Gran % Neutrophils % Lymphocytes % Monocytes % Eosinophils % Basophils % Nucleated RBC % Absolute Neutrophils Absolute Lymphocytes Absolute Monocytes Absolute Eosinophils Absolute Basophils VBG pH VBG pCO2 VBG pO2 VBG HCO3 VBG Total CO2 VBG O2 Saturation VBG Base Excess Sodium 139 Potassium 4.1 Chloride 106 Carbon Dioxide 23.7 Anion Gap 9.3 BUN 18 Creatinine 1.1 Est GFR (CKD-EPI 2020) 91.47 Glucose 237 H Calcium 8.4 L Total Bilirubin AST ALT Alkaline Phosphatase Total Protein Albumin Lipase Urine Color Yellow Urine Clarity Clear Urine pH 5.5 Ur Specific [place] 1.025 Urine Protein Negative Urine Ketones >=160 H Urine Blood Negative Urine Nitrite Negative Urine Bilirubin Negative Urine Urobilinogen 0.2 Ur Leukocyte Esterase Negative Urine Glucose 500 H COVID-19 Source Nasopharynx SARS-CoV-2 (PCR) Negative Influenza Type A (PCR) Negative Influenza Type B (PCR) Negative RSV (PCR) Negative 11/04/22 07:52 WBC RBC Hgb Hct MCV MCH MCHC RDW Plt Count MPV Immature Gran % Neutrophils % Lymphocytes % Monocytes % Eosinophils % Basophils % Nucleated RBC % Absolute Neutrophils Absolute Lymphocytes Absolute Monocytes Absolute Eosinophils Absolute Basophils VBG pH 7.30 L VBG pCO2 45 VBG pO2 59 VBG HCO3 22 L VBG Total CO2 20 L VBG O2 Saturation 90 VBG Base Excess -4 L Sodium Potassium Chloride Carbon Dioxide Anion Gap BUN Creatinine Est GFR (CKD-EPI 2020) Glucose Calcium Total Bilirubin AST ALT Alkaline Phosphatase Total Protein Albumin Lipase Urine Color Urine Clarity Urine pH Ur Specific [place] Urine Protein Urine Ketones Urine Blood Urine Nitrite Urine Bilirubin Urine Urobilinogen Ur Leukocyte Esterase Urine Glucose COVID-19 Source SARS-CoV-2 (PCR) Influenza Type A (PCR) Influenza Type B (PCR) RSV (PCR) I received care of the patient from Dr. Pearl at 8 AM. He felt improved, finishes fluid bolus and repeat chemistry is obtained with improvement. Glucose in the 200s. He noted normal morning hunger and ordered a morning meal, which she tolerated well. He was given 20 units of NPH. Patient felt subjectively significantly better. He is stable and appropriate for discharge to home HPI <Jyoti Wesly Pearl, - Last Filed: 11/04/22 08:00> General Mode of arrival: ambulatory . Date/Time Provider Initiated Documentation: 11/04/22 05:12 . Limitations to Documentation: no limitations . Information obtained by: patient . HPI Narrative: Patient is a 32-year-old male with a history of type 1 diabetes presents with vomiting and diarrhea since yesterday and high blood sugar at home. Patient states he has had multiple episodes of vomiting which is mainly been clear yellow and multiple episodes of diarrhea which is mainly been watery and brown. He denies hematemesis. He states his has been sick with similar symptoms. He is sugar at home today was 208. He states his normal sugar is within the 100s. He states he usually takes 30 units of NPH insulin with meals. He states his last dose of 30 units insulin was yesterday morning as he did not take any additional insulin due to not eating with vomiting and diarrhea yesterday. Patient denies any known fever. Patient states he was first diagnosed with diabetes 7 years ago. He states he was admitted here in August 2022 for his first episode of DKA. Related Data Home Medications Medication Instructions Recorded Confirmed insulin syringe-needle U-100 0.3 #100 ea 08/27/20 09/27/22 mL 31 gauge x 1/4 insulin NPH isoph U-100 human 100 30 unit subcut BID Reli-On Brand 12/04/20 11/04/22 unit/mL subcutaneous suspension insulin regular human 100 unit/mL 1 sliding scale dose subcut 09/21/22 11/04/22 injection solution (Humulin R USEASDIRECTD #10 mL Regular U-100 Insulin) omeprazole 40 mg capsule,delayed 40 mg PO DAILY #30 caps 09/21/22 09/27/22 release sucralfate 1 gram tablet (Carafate) 1 g PO QACHS #120 tabs 09/21/22 09/27/22 blood-glucose sensor (FreeStyle #1 ea 10/27/22 Kodi 3 Sensor device) flash glucose scanning reader #1 ea 10/27/22 (FreeStyle Kodi 2 [place]) Previous Rx's Medication Instructions Recorded insulin syringe-needle U-100 0.3 #100 ea 08/27/20 mL 31 gauge x 1/4 insulin regular human 100 unit/mL 1 sliding scale dose subcut 09/21/22 injection solution (Humulin R USEASDIRECTD #10 mL Regular U-100 Insulin) omeprazole 40 mg capsule,delayed 40 mg PO DAILY #30 caps 09/21/22 release sucralfate 1 gram tablet (Carafate) 1 g PO QACHS #120 tabs 09/21/22 blood-glucose sensor (FreeStyle #1 ea 10/27/22 Kodi 3 Sensor device) flash glucose scanning reader #1 ea 10/27/22 (FreeStyle Kodi 2 [place]) Allergies Allergy/AdvReac Type Severity Reaction Status Date / Time shellfish derived Allergy Severe Throat Verified 09/27/22 08:20 Swelling General Stated Complaint: Diabetes GEOFF: 3 Review of Systems <Jyoti Pearl DO - Last Filed: 11/04/22 08:00> All systems reviewed & are unremarkable except as noted in HPI and below Constitutional Constitutional: Reports as per HPI, Denies chills and Denies fever(s) Eyes Eyes: Denies blurry vision ENT Ears, Nose, Mouth, and Throat: Denies dizziness, Denies sore throat and Denies throat swelling Cardiovascular Cardiovascular: Denies chest pain and Denies dyspnea Respiratory Respiratory: Denies cough and Denies dyspnea Gastrointestinal Gastrointestinal: Denies abdominal pain, Reports diarrhea and Reports vomiting Genitourinary Genitourinary: Denies hematuria and Denies dysuria Musculoskeletal Musculoskeletal: Denies back pain and Denies numbness Integumentary/Breasts Skin/Breast: Denies lesions and Denies rash Neurologic Neurologic: Denies dizziness, Denies localized weakness and Denies numbness Allergic/Immunologic Allergic/Immunologic: Denies throat swelling PFSH <Jyoti Pearl DO - Last Filed: 11/04/22 08:00> All Active Problems (Updated 11/04/22 @ 09:54 by Snug Basilio MD) Diabetes mellitus (Chronic) Annual physical exam (Acute) Anxiety (Chronic) Loose stools (Acute) Low back strain (Acute) Shoulder pain, left (Acute) Dehydration (Acute) Hyperglycemia (Acute) Medical History (Updated 11/04/22 @ 09:54 by Sung Basilio MD) Abdominal symptoms Diabetes mellitus Headache Influenza A Surgical History No pertinent past surgical history Family History Mother Asthma Depression Diabetes Heart disease Hypertension Father Seizures Sister Seizures Social History Smoking/Tobacco Use Status: Former Tobacco Use Second Hand Exposure: Yes Smoking risk assessment performed?: Yes Alcohol Intake: never Drug use: Never Caregiver/Support person: No Household members: spouse Communication Needs: None Do you need help understanding health information?: Never Pets and animals: Yes Pets and animals: cat(s) Sexually active: Yes Do you think of yourself as: straight/heterosexual Current gender identity: male What is your relationship status?: How often do you talk on the phone with friends or family?: once per week How often do you get together with friends or relatives?: once per week How often do you attend sikh or spiritism services?: decline to answer Do you belong to any clubs or organized social groups?: no Panel score (0-1 are the most socially isolated patients): 1 What type of physical activity do you participate in: walking Duration: other Frequency: daily Louise/Orthodox: Judaism Seatbelt use: always Drive intox or ride w/intox helper driver: No Do you feel safe at home: Yes Do you feel safe in your relationship?: Yes Exam <Jyoti Pearl DO - Last Filed: 11/04/22 08:00> Const General: cooperative, no acute distress and anxious Orientation: alert, awake and oriented x3 HENMT Head: normal to inspection Face and sinus: normal facial exam Eyes General: appearance normal, both eyes and all related structures Pupils: PERRL EOM: EOM intact bilaterally Neck Neck: normal visual inspection and No submandibular swelling Lymphatic: no lymphadenopathy noted Chest Chest: normal inspection of the chest and no tenderness Resp Effort & Inspection: normal respiratory effort and able to speak in complete sentences Auscultation: clear to auscultation bilaterally Cardio Rate: tachycardic Rhythm: regular rhythm GI Inspection: normal to inspection Palpation: soft, not firm, not rigid and nontender Auscultation: hypoactive bowel sounds Skin General skin exam: no rashes or lesions noted Neuro General: patient alert, patient awake and patient oriented x3 Cognition: normal cognition Speech: speech normal Motor: muscle tone normal throughout Sensory Exam: no sensory deficits noted Extrem General: normal to inspection, full ROM, capillary refill normal, no calf tenderness bilaterally and no edema Psych Appearance: grossly normal Mental Status: mental status grossly normal Speech and Movement: speech and movement normal Affect: normal affect Course <Jyoti Pearl DO - Last Filed: 11/04/22 08:00> Vital Signs Vital signs: Vital Signs Pulse 134 H 11/04/22 05:03 Respiratory Rate 18 11/04/22 05:03 Blood Pressure 116/71 11/04/22 05:03 Pulse Oximetry 98 11/04/22 05:03 Temperature 99.3 F 11/04/22 05:14 Temperature Source Tympanic 11/04/22 05:14 Pulse 134 H 11/04/22 05:03 Respiratory Rate 18 11/04/22 05:03 Respiratory Effort Normal 11/04/22 05:08 Blood Pressure 116/71 11/04/22 05:03 Blood Pressure Position Sitting 11/04/22 05:03 Pulse Oximetry 98 11/04/22 05:03 Oxygen Delivery Method Room Air 11/04/22 05:03 Oxygen Flow Rate 0 11/04/22 05:03 Pain Level 0 11/04/22 05:03 Sign Out <Jyoti Pearl DO - Last Filed: 11/04/22 08:00> Sign Out Data: Sign Out Comment: Type I diabetic here with vomiting and diarrhea since yesterday. Does not meet full criteria for DKA but is tachycardic with high blood sugar. Patient feeling better after fluids and insulin. Recheck BMP and VBG after second liter of IV fluids. If labs slow to improve or patient does not feel well, consider admission for IV fluids and monitoring for DKA. Last updated by Jyoti Pearl DO at 11/04/22 07:49
[2022-11-04] MEDS: Normal Saline 1,000 ML 1000 ML IV ×3 (05:19→09:22)
[2022-11-04 05:23] LABS: Abs Immature Grans 0.04 10^3/uL (0.0-0.06); Absolute Basophil Count 0.04 10^3/uL (0.0-0.2); Absolute Eosinophil Count 0.02 10^3/uL (0.0-0.7); Absolute Lymphocyte Count 0.36 10^3/uL (1.2-3.4); Absolute Monocyte Count 0.45 10^3/uL (0.1-0.8); Absolute Neutrophil Count 6.71 10^3/uL (1.2-6.7); BE (Venous) -4 mmol/L (-2-3); Basophils % 0.5; Eosinophils % 0.3; HCO3 (Venous) 22 mmol/L (23-28); HCT 50.6 % (40.0-50.0); HGB 16.5 g/dL (13.5-17.5); Immature Grans % 0.5; Lymphocytes % 4.7; MCH 30.3 pg (27.0-33.0); MCHC 32.6 % (32.0-36.0); MCV 93 fL (80-95); MPV 9.9 fL (8.0-11.0); Monocytes % 5.9; Neutrophils % 88.1; O2 Sat (Venous) 56 %; Platelet Count 207 10^3/uL (130-400); RBC 5.45 10^6/uL (4.36-5.78); RDW 12.3 % (11.8-14.1); RDW-SD 42.1 fL; TCO2 (Venous) 20 mmol/L (24-29); WBC 7.62 10^3/uL (4.4-10.8); pCO2 (Venous) 45 mmHg (41-51); pO2 (Venous) 30 mmHg
[2022-11-04] MEDS: Ondansetron 4 MG/2 ML VIAL IVP (05:35)
[2022-11-04] MEDS: LORazepam 2 MG/ML VIAL 0.5 MG IVP (05:35)
[2022-11-04 05:46] LABS: ALT 23 U/L (16-63); AST 13 U/L (15-37); Albumin 4.8 g/dL (3.4-5.0); Alkaline Phosphatase 76 U/L (46-116); Anion Gap 13.4 mmol/L (3-11); BUN 19 mg/dL (7-18); Bilirubin, Total 1.3 mg/dL (0.2-1.0); CO2 23.6 mmol/L (21.0-32.0); CREATININE 1.3 mg/dL (0.70-1.30); Calcium 9.5 mg/dL (8.5-10.1); Chloride 99 mmol/L (98-107); Estimated GFR 74.85 (mL/min/1.73m2); Glucose 324 mg/dL (74-106); Lipase 15 U/L (16-77); Potassium 4.2 mmol/L (3.5-5.1); Sodium 136 mmol/L (136-145); Total Protein 8.7 g/dL (6.4-8.2)
[2022-11-04] MEDS: Insulin REGULAR-Human 100 UNITS/ML UNIT 7 UNITS SC (06:03)
[2022-11-04 06:13] LABS: COVID-19 PCR Negative (Negative); Influenza A PCR Negative (Negative); Influenza B PCR Negative (Negative); RSV PCR Negative (Negative)
[2022-11-04 06:15] LABS: Source Nasopharynx
[2022-11-04 07:15] LABS: Bilirubin Negative (Negative); Blood Negative (Negative); Clarity Clear (Clear); Glucose 500 mg/dL (Negative); Ketones >=160 mg/dL (Negative); Leukocyte Esterase Negative (Negative); Nitrite Negative (Negative); Specific Gravity 1.025 (1.005-1.025); Urobilinogen 0.2 mg/dL (Up to 0.2); pH 5.5 (5-8)
[2022-11-04 07:59] LABS: BE (Venous) -4 mmol/L (-2-3); HCO3 (Venous) 22 mmol/L (23-28); O2 Sat (Venous) 90 %; TCO2 (Venous) 20 mmol/L (24-29); pCO2 (Venous) 45 mmHg (41-51); pO2 (Venous) 59 mmHg
[2022-11-04 08:17] LABS: Anion Gap 9.3 mmol/L (3-11); BUN 18 mg/dL (7-18); CO2 23.7 mmol/L (21.0-32.0); CREATININE 1.1 mg/dL (0.70-1.30); Calcium 8.4 mg/dL (8.5-10.1); Chloride 106 mmol/L (98-107); Estimated GFR 91.47 (mL/min/1.73m2); Glucose 237 mg/dL (74-106); Potassium 4.1 mmol/L (3.5-5.1); Sodium 139 mmol/L (136-145)
[2022-11-04] MEDS: Insulin NPH-Human 300 UNITS/3 ML PEN 20 UNIT SC (09:22)
== END 2022-11-04 10:21 | disposition home or self-care (01) ==
PROVIDERS: Physician Assistant; Emergency Provider Emergency Medicine; PCP Nurse Practitioner Family
DX: E10.65 Type 1 diabetes mellitus with hyperglycemia (principal); E86.0 Dehydration; R00.0 Tachycardia, unspecified; Z79.4 Long term (current) use of insulin; Z20.822 Contact with and (suspected) exposure to COVID-19
CPT/HCPCS: 36415; 36416; 80048; 80053; 82805; 82962; 83690; 87637; 93005; 96361; 96372; 96374; 96375; 99284; 81003; 85025; 93010; J2060; J2405

== ENCOUNTER 2023-01-07 21:57 | Emergency (ER) | payer SELFPAY ==
[2023-01-07 22:02] VITALS: BP 116/77; PULSE 94; RESP 23; TEMP 37; O2SAT 97
[2023-01-07 22:48] LABS: Abs Immature Grans 0.01 10^3/uL (0.0-0.06); Absolute Basophil Count 0.08 10^3/uL (0.0-0.2); Absolute Eosinophil Count 0.09 10^3/uL (0.0-0.7); Absolute Lymphocyte Count 1.68 10^3/uL (1.2-3.4); Absolute Monocyte Count 0.61 10^3/uL (0.1-0.8); Absolute Neutrophil Count 3.07 10^3/uL (1.2-6.7); Basophils % 1.4; Eosinophils % 1.6; Immature Grans % 0.2; Lymphocytes % 30.3; MCH 30.9 pg (27.0-33.0); MCHC 34.1 % (32.0-36.0); MCV 91 fL (80-95); MPV 9.7 fL (8.0-11.0); Neutrophils % 55.5; Platelet Count 252 10^3/uL (130-400); RBC 4.86 10^6/uL (4.36-5.78); RDW 11.8 % (11.8-14.1); RDW-SD 38.9 fL; WBC 5.54 10^3/uL (4.4-10.8)
[2023-01-07 23:05] LABS: ALT 19 U/L (16-63); AST 13 U/L (15-37); Albumin 4.2 g/dL (3.4-5.0); Alkaline Phosphatase 80 U/L (46-116); Anion Gap 8.9 mmol/L (3-11); BUN 20 mg/dL (7-18); Bilirubin, Total 0.4 mg/dL (0.2-1.0); CO2 30.1 mmol/L (21.0-32.0); CREATININE 1.2 mg/dL (0.70-1.30); Calcium 9.3 mg/dL (8.5-10.1); Chloride 103 mmol/L (98-107); Glucose 99 mg/dL (74-106); Potassium 3.3 mmol/L (3.5-5.1); Sodium 142 mmol/L (136-145); Total Protein 7.9 g/dL (6.4-8.2)
--- NOTE | 2023-01-08 00:10 | ED.GENADUL_ITS ---
Discharge Plan Disposition Patient Disposition: Home Condition: Improving Discharge Details Chief Complaint: GenMedical Clinical Impression: Hypoglycemia Primary Care Provider: Matthew Lama ED Provider: Dawson Cosme Home Meds and New Rx's Prescriptions: No Action (DME) insulin syringe-needle U-100 0.3 mL 31 gauge x 1/4 syringe See Rx Instructions .ROUTE .MEDSUPPLY Qty: 100 4RF Rx Instructions: As directed insulin NPH isoph U-100 human 100 unit/mL suspension 30 unit subcut BID (DME) FreeStyle Kodi 2 [place] Misc See Rx Instructions .Route Qty: 1 12RF Rx Instructions: As directed [place] for FreeStyle Kodi 3 (DME) FreeStyle [place] 3 Sensor Device See Rx Instructions .Route Qty: 1 12RF Rx Instructions: As directed Humulin R Regular U-100 Insuln 100 unit/mL solution 1 sliding scale dose subcut USEASDIRECTD Qty: 10 0RF Rx Instructions: 1 unit per 10 gm carbohydrates w/ each meal and also follow moderate insulin dose sliding scale per [facility] pharmacy sucralfate [Carafate] 1 gram tablet 1 g PO QACHS Qty: 120 0RF omeprazole 40 mg capsule,delayed release(DR/EC) 40 mg PO DAILY Qty: 30 0RF Discharge Instructions Instructions: Hypoglycemia in a Person with Diabetes (ED) Additional Instructions: Please follow-up with endocrinology. Please return to the emergency department for any worsening symptoms Medical Decision Making 32-year-old male presents with intermittent hypoglycemia earlier this evening noted on his implantable monitor. As low as 50. Improved after a snack. Now in the low 100s. Denies diaphoresis nausea vomiting lightheadedness chest pain shortness of breath fevers chills or other systemic symptoms. Patient is well- appearing afebrile nontoxic. Neurologically intact. Fingerstick within normal limits. Patient's blood sugar has stabilized here in department. Patient is asymptomatic. Basic labs were sent to assess kidney function and liver function. Consider possible mild dehydration leading to prolonged effects of insulin. No evidence of infection or trauma. No cardiac symptomatology. Patient counseled to follow closely with endocrinology. Home care instructions and return precautions give HPI General Date/Time Provider Initiated Documentation: 01/07/23 22:01 . HPI Narrative: 32-year-old male history of diabetes, presents with intermittent hypoglycemia today as low as 50s per his implantable monitor. Patient uses subcutaneous insulin long-acting twice a day and sliding scale subcu pending blood sugar after meals. No recent change in his regimen. No pump use. No illness or systemic signs of illness. Denies nausea vomiting diaphoresis lightheadedness and fatigue. Had a snack and his blood sugar has been stabilizing Related Data Home Medications Medication Instructions Recorded Confirmed insulin syringe-needle U-100 0.3 #100 ea 08/27/20 01/07/23 mL 31 gauge x 1/4 insulin NPH isoph U-100 human 100 30 unit subcut BID Reli-On Brand 12/04/20 01/07/23 unit/mL subcutaneous suspension insulin regular human 100 unit/mL 1 sliding scale dose subcut 09/21/22 01/07/23 injection solution (Humulin R USEASDIRECTD #10 mL Regular U-100 Insulin) omeprazole 40 mg capsule,delayed 40 mg PO DAILY #30 caps 09/21/22 01/07/23 release sucralfate 1 gram tablet (Carafate) 1 g PO QACHS #120 tabs 09/21/22 01/07/23 blood-glucose sensor (FreeStyle #1 ea 11/12/22 01/07/23 Kodi 3 Sensor device) flash glucose scanning reader #1 ea 11/12/22 01/07/23 (FreeStyle Kodi 2 [place]) Previous Rx's Medication Instructions Recorded insulin syringe-needle U-100 0.3 #100 ea 08/27/20 mL 31 gauge x 1/4 insulin regular human 100 unit/mL 1 sliding scale dose subcut 09/21/22 injection solution (Humulin R USEASDIRECTD #10 mL Regular U-100 Insulin) omeprazole 40 mg capsule,delayed 40 mg PO DAILY #30 caps 09/21/22 release sucralfate 1 gram tablet (Carafate) 1 g PO QACHS #120 tabs 09/21/22 blood-glucose sensor (FreeStyle #1 ea 11/12/22 Kodi 3 Sensor device) flash glucose scanning reader #1 ea 11/12/22 (FreeStyle Kodi 2 [place]) Allergies Allergy/AdvReac Type Severity Reaction Status Date / Time shellfish derived Allergy Severe Throat Verified 09/27/22 08:20 Swelling General Stated Complaint: GenMedical GEOFF: 2 Review of Systems Narrative: Review of Systems Constitutional: negative Eyes: negative ENT: negative Cardiovascular: negative Respiratory: negative Gastrointestinal: negative : negative Musculoskeletal: negative Skin: negative Neurologic: negative Psych: negative PFSH All Active Problems (Updated 01/08/23 @ 00:14 by Dawson Cosme MD) Diabetes mellitus (Chronic) Annual physical exam (Acute) Anxiety (Chronic) Loose stools (Acute) Low back strain (Acute) Shoulder pain, left (Acute) Hypoglycemia (Acute) Medical History (Updated 01/08/23 @ 00:14 by Dawson Cosme MD) Abdominal symptoms Diabetes mellitus Headache Influenza A Surgical History No pertinent past surgical history Family History Mother Asthma Depression Diabetes Heart disease Hypertension Father Seizures Sister Seizures Social History Smoking/Tobacco Use Status: Former Tobacco Use Second Hand Exposure: Yes Smoking risk assessment performed?: Yes Alcohol Intake: never Drug use: Rarely Substance use type: marijuana Caregiver/Support person: No Household members: spouse Communication Needs: None Do you need help understanding health information?: Never Pets and animals: Yes Pets and animals: cat(s) Sexually active: Yes Do you think of yourself as: straight/heterosexual Current gender identity: male What is your relationship status?: How often do you talk on the phone with friends or family?: once per week How often do you get together with friends or relatives?: once per week How often do you attend latter day or orthodox services?: decline to answer Do you belong to any clubs or organized social groups?: no Panel score (0-1 are the most socially isolated patients): 1 What type of physical activity do you participate in: walking Duration: other Frequency: daily Louise/Christianity: Mandaen Seatbelt use: always Drive intox or ride w/intox local intermodal truck driver: No Do you feel safe at home: Yes Do you feel safe in your relationship?: Yes Exam Narrative Exam Narrative: Physical Examination General: alert, awake, cooperative, resting comfortably, no acute distress HEENT: normocephalic, atraumatic; PERRL, EOM intact, conjunctiva normal; no nasal discharge; moist mucous membranes, oral and pharyngeal mucosa normal, tolerating secretions Neck: supple, trachea midline; full ROM Chest: normal to inspection Respiratory: normal respiratory effort, speaking in full sentences, clear to auscultation, no wheezing, rales or rhonchi Cardiac: regular rate, regular rhythm, S1S2 intact, no murmurs rubs or gallops GI: abdomen soft, non-tender, non-distended; no palpable mass or hepatosplenomegaly Skin: no lesions, rashes or trauma appreciated Neuro: AAOx3, normal speech, moving all extremities Psych: Appropriate mood and affect Course Vital Signs Vital signs: Vital Signs Temperature 37.0 C 01/07/23 22:02 Pulse 94 H 01/07/23 22:02 Respiratory Rate 23 01/07/23 22:02 Blood Pressure 116/77 01/07/23 22:02 Pulse Oximetry 97 01/07/23 22:02 Temperature 37.0 C 01/07/23 22:02 Pulse 94 H 01/07/23 22:02 Respiratory Rate 23 01/07/23 22:02 Respiratory Effort Normal, Non-Labored 01/07/23 22:05 Respiratory Depth Normal 01/07/23 22:05 Respiratory Pattern Normal 01/07/23 22:05 Blood Pressure 116/77 01/07/23 22:02 Blood Pressure Position Sitting 01/07/23 22:02 Pulse Oximetry 97 01/07/23 22:02 Oxygen Delivery Method Room Air 01/07/23 22:02 Oxygen Flow Rate 0 01/07/23 22:02 Pain Level 0 01/07/23 22:02 Lab/Test Results Lab/Test Results: Laboratory Tests Range/Units 01/07/23 01/07/23 22:41 22:41 WBC (4.4-10.8) 10^3/uL 5.54 RBC (4.36-5.78) 10^6/uL 4.86 Hgb (13.5-17.5) g/dL 15.0 Hct (40.0-50.0) % 44.0 MCV (80-95) fL 91 MCH (27.0-33.0) pg 30.9 MCHC (32.0-36.0) % 34.1 RDW (11.8-14.1) % 11.8 Plt Count (130-400) 10^3/uL 252 MPV (8.0-11.0) fL 9.7 Immature Gran % 0.2 Neutrophils % 55.5 Lymphocytes % 30.3 Monocytes % 11.0 Eosinophils % 1.6 Basophils % 1.4 Nucleated RBC % (0.0-0.3) % 0.0 Absolute Neutrophils (1.2-6.7) 10^3/uL 3.07 Absolute Lymphocytes (1.2-3.4) 10^3/uL 1.68 Absolute Monocytes (0.1-0.8) 10^3/uL 0.61 Absolute Eosinophils (0.0-0.7) 10^3/uL 0.09 Absolute Basophils (0.0-0.2) 10^3/uL 0.08 Sodium (136-145) mmol/L 142 Potassium (3.5-5.1) mmol/L 3.3 L Chloride (98-107) mmol/L 103 Carbon Dioxide (21.0-32.0) mmol/L 30.1 Anion Gap (3-11) mmol/L 8.9 BUN (7-18) mg/dL 20 H Creatinine (0.70-1.30) mg/dL 1.2 Est GFR (CKD-EPI 2020) (mL/min/1.73m2) 82.40 Glucose (74-106) mg/dL 99 Calcium (8.5-10.1) mg/dL 9.3 Total Bilirubin (0.2-1.0) mg/dL 0.4 AST (15-37) U/L 13 L ALT (16-63) U/L 19 Alkaline Phosphatase (46-116) U/L 80 Total Protein (6.4-8.2) g/dL 7.9 Albumin (3.4-5.0) g/dL 4.2
--- NOTE | 2023-01-08 00:57 | NUR.NOTE ---
Referral to Care Management to refer patient to [facility] – [place] Endocrinology for f/u of hypoglycemia next week.Nursing Note:
== END 2023-01-08 00:19 | disposition home or self-care (01) ==
PROVIDERS: Emergency Provider Emergency Medicine; PCP Nurse Practitioner Family
DX: E11.649 Type 2 diabetes mellitus with hypoglycemia without coma (principal)
CPT/HCPCS: 36416; 80053; 82962; 99283; 85025

== ENCOUNTER 2023-04-28 20:06 | Emergency (ER) | payer SELFPAY ==
[2023-04-28 20:10] VITALS: BP 131/82; PULSE 71; RESP 18; TEMP 37.1; O2SAT 98
--- NOTE | 2023-04-28 20:15 | DI.RAD_ITS ---
Exam(s) XR HAND RT COMPLETE EXAM: XR HAND RT COMPLETE CLINICAL HISTORY: right hand pain. TECHNIQUE: 2D digital imaging was performed of the right hand. Three images were obtained. AP, late ral and oblique views were obtained. COMPARISON: No exams were available for comparison FINDINGS: BONES: There is an acute fracture through the proximal metaphysis of the right 5th metacarpal bone. There is mild displacement of the fracture noted. No bony destructive lesion is seen. JOINTS: No dislocation present. SOFT TISSUE: Soft tissue swelling of the medial ankle about the 5th metacarpal. IMPRESSION: Mildly displaced proximal 5th metacarpal fracture. DATA REPOSITORY: RADIATION DOSE DELIVERED:
--- NOTE | 2023-04-28 21:05 | DI.VRAD_ITS ---
PROCEDURE INFORMATION: Exam: XR Right Hand Exam date and time: 04/28/2023 8:38 PM Age: 32 years old Clinical indication: Swelling and other: Right hand pain TECHNIQUE: Imaging protocol: Radiologic exam of the right hand. Views: 3 or more views. COMPARISON: No relevant prior studies available. FINDINGS: Bones/joints: Comminuted fracture of the proximal 5th metacarpal. Bone mineralization is age-appropriate. No evidence of dislocation. The joint spaces are adequately preserved; no significant degenerative narrowing and no bony erosion seen. Soft tissues: No radiopaque foreign body present. There is soft tissue swelling present. IMPRESSION: 1. Comminuted fracture of the proximal 5th metacarpal. 2. There is soft tissue swelling present. Dictated and Authenticated by: Wero Lauren MD. Ordering:CONNOR Salinas MD
[2023-04-28 22:05] VITALS: BP 121/70; PULSE 66; RESP 16; TEMP 36.9; O2SAT 98
--- NOTE | 2023-05-01 08:32 | W.ED.GENAD ---
Discharge Plan Disposition Patient Disposition: Home Discharge Details Clinical Impression: Boxer's fracture Primary Care Provider: Matthew Lama ED Provider: Rita Paulino Home Meds and New Rx's Prescriptions: Continued (DME) insulin syringe-needle U-100 0.3 mL 31 gauge x 1/4 syringe See Rx Instructions .ROUTE .MEDSUPPLY Qty: 100 4RF Rx Instructions: As directed insulin NPH isoph U-100 human 100 unit/mL suspension 30 unit subcut BID (DME) FreeStyle Kodi 2 [place] Misc See Rx Instructions .Route Qty: 1 12RF Rx Instructions: As directed [place] for FreeStyle Kodi 3 (DME) FreeStyle Kodi 3 Sensor Device See Rx Instructions .Route Qty: 1 12RF Rx Instructions: As directed Humulin R Regular U-100 Insuln 100 unit/mL solution 1 sliding scale dose subcut USEASDIRECTD Qty: 10 0RF Patient Comments: states he is not taking 04/28/23 Rx Instructions: 1 unit per 10 gm carbohydrates w/ each meal and also follow moderate insulin dose sliding scale per [facility] pharmacy sucralfate [Carafate] 1 gram tablet 1 g PO QACHS Qty: 120 0RF Patient Comments: states he is not taking 04/28/23 omeprazole 40 mg capsule,delayed release(DR/EC) 40 mg PO DAILY Qty: 30 0RF Patient Comments: states he is not taking 04/28/23 Discharge Instructions Additional Instructions: Please ice, ibuprofen 600 mg every 8 hours with food Follow-up with orthopedics Keep your splint dry Return with pain, skin discoloration, or with any new or worsening complaints Referrals: Matthew Lama NP [Primary Care Provider] - Willem Klein MD [ [facility] STAFF PHYSICIAN] - Discharge Data Discharge Date/Time-TO BE ENTERED AT DEPARTURE: 04/29/23 01:35 Medical Decision Making Right hand pain after punching a desk just prior to arrival X-ray was ordered for further evaluation, no wrist tenderness, evidence of a nondisplaced fracture to proximal fifth metacarpal Placed in ulnar gutter splint, neurovascularly intact, orthopedic referral Return precautions discussed and patient expressed understanding Medical Records Medical records reviewed: Yes I reviewed the patient's medical records. HPI General Date/Time Provider Initiated Documentation: 04/28/23 20:25. HPI Narrative: This 32-year-old male presents with right hand pain after punching a desk approximately an hour prior to arrival. Denies any additional injuries. History of insulin-dependent diabetes. Related Data Home Medications Medication Instructions Recorded Confirmed insulin syringe-needle U-100 0.3 #100 ea 08/27/20 01/07/23 mL 31 gauge x 1/4 insulin NPH isoph U-100 human 100 30 unit subcut BID Reli-On Brand 12/04/20 04/28/23 unit/mL subcutaneous suspension insulin regular human 100 unit/mL 1 sliding scale dose subcut 09/21/22 04/28/23 injection solution (Humulin R USEASDIRECTD #10 mL Regular U-100 Insulin) omeprazole 40 mg capsule,delayed 40 mg PO DAILY #30 caps 09/21/22 04/28/23 release sucralfate 1 gram tablet (Carafate) 1 g PO QACHS #120 tabs 09/21/22 04/28/23 blood-glucose sensor (FreeStyle #1 ea 11/12/22 01/07/23 Kodi 3 Sensor device) flash glucose scanning reader #1 ea 11/12/22 01/07/23 (FreeStyle Kodi 2 [place]) Previous Rx's Medication Instructions Recorded insulin syringe-needle U-100 0.3 #100 ea 08/27/20 mL 31 gauge x 1/4 insulin regular human 100 unit/mL 1 sliding scale dose subcut 09/21/22 injection solution (Humulin R USEASDIRECTD #10 mL Regular U-100 Insulin) omeprazole 40 mg capsule,delayed 40 mg PO DAILY #30 caps 09/21/22 release sucralfate 1 gram tablet (Carafate) 1 g PO QACHS #120 tabs 09/21/22 blood-glucose sensor (FreeStyle #1 ea 11/12/22 Kodi 3 Sensor device) flash glucose scanning reader #1 ea 11/12/22 (FreeStyle Kodi 2 [place]) Allergies Allergy/AdvReac Type Severity Reaction Status Date / Time shellfish derived Allergy Severe Throat Verified 04/28/23 20:15 Swelling General Stated Complaint: Orthopedic GEOFF: 4 PFSH All Active Problems (Updated 04/28/23 @ 21:40 by GONZALO Wadsworth) Diabetes mellitus (Chronic) Annual physical exam (Acute) Anxiety (Chronic) Loose stools (Acute) Low back strain (Acute) Shoulder pain, left (Acute) Boxer's fracture (Acute) Medical History (Updated 04/28/23 @ 21:40 by GONZALO Wadsworth) Abdominal symptoms Diabetes mellitus Headache Influenza A Surgical History No pertinent past surgical history Family History Mother Asthma Depression Diabetes Heart disease Hypertension Father Seizures Sister Seizures Social History Smoking/Tobacco Use Status: Former Tobacco Use Second Hand Exposure: Yes Smoking risk assessment performed?: Yes Alcohol Intake: never Drug use: Rarely Substance use type: does not use Details: quit marijuana a week ago as of 04/28/23 Caregiver/Support person: No Household members: spouse Communication Needs: None Do you need help understanding health information?: Never Pets and animals: Yes Pets and animals: cat(s) Sexually active: Yes Do you think of yourself as: straight/heterosexual Current gender identity: male What is your relationship status?: How often do you talk on the phone with friends or family?: once per week How often do you get together with friends or relatives?: once per week How often do you attend catholic or yazidi services?: decline to answer Do you belong to any clubs or organized social groups?: no Panel score (0-1 are the most socially isolated patients): 1 What type of physical activity do you participate in: walking Duration: other Frequency: daily Louise/Gnosticist: Hinduism Seatbelt use: always Drive 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 Do you feel safe at home: Yes Do you feel safe in your relationship?: Yes Course Vital Signs Vital signs: Vital Signs Temperature 37.1 C 04/28/23 20:10 Pulse 71 04/28/23 20:10 Respiratory Rate 18 04/28/23 20:10 Blood Pressure 131/82 04/28/23 20:10 Pulse Oximetry 98 04/28/23 20:10 Temperature 36.9 C 04/28/23 22:05 Temperature Source Oral 04/28/23 20:10 Pulse 66 04/28/23 22:05 Respiratory Rate 16 04/28/23 22:05 Respiratory Effort Normal, Non-Labored 04/28/23 20:18 Blood Pressure 121/70 04/28/23 22:05 Blood Pressure Position Sitting 04/28/23 20:10 Pulse Oximetry 98 04/28/23 22:05 Oxygen Delivery Method Room Air 04/28/23 20:10 Oxygen Flow Rate 0 04/28/23 20:10 Pain Level 9 04/28/23 20:10 Procedures Orthopedic Splinting/Casting Injury #1: Side: right Upper Extremity Injury Location: hand Upper Extremity Immobilizer: ulnar gutter Additional Comments: neurovascularly intact pre and post procedure
== END 2023-04-29 01:35 | disposition home or self-care (01) ==
PROVIDERS: Emergency Provider Physician Assistant; PCP Nurse Practitioner Family
DX: S62.396A Other fracture of fifth metacarpal bone, right hand, initial encounter for closed fracture (principal); E11.9 Type 2 diabetes mellitus without complications; Z79.4 Long term (current) use of insulin; Z87.891 Personal history of nicotine dependence; W22.03XA Walked into furniture, initial encounter; Y93.89 Activity, other specified; Y99.9 Unspecified external cause status
CPT/HCPCS: 29125; 99283; 73130; 99282

== ENCOUNTER 2023-05-02 09:07 | Outpatient (CLI) | payer SELFPAY ==
--- NOTE | 2023-05-02 09:00 | RT.EKG_ITS ---
APPROVED REPORT Exam: Resting ECG Reason for Exam: annual exam Patient Location: O HR:78 bpm ECG Measurements Heart Rate 78 AXIS SC 150 P 84 QRSd 88 QRS 98 QT 339 T 72 QTc 387 Conclusion Sinus rhythm...normal P axis, V-rate 50- 99 Right axis Early repolarization
== END 2023-05-02 09:08 | disposition home or self-care (01) ==
LOC: DI.CM 09:09
PROVIDERS: PCP Nurse Practitioner Family; Visit Provider Nurse Practitioner Family
DX: R00.0 Tachycardia, unspecified (principal)
CPT/HCPCS: 93010

== ENCOUNTER 2023-05-05 14:44 | Outpatient (CLI) | payer SELFPAY ==
--- NOTE | 2023-05-05 14:30 | DI.RAD_ITS ---
Exam(s) XR HAND RT COMPLETE EXAM: XR HAND RT COMPLETE INDICATION: RIGHT BOXER'S FX. COMPARISON: CR,XR XR HAND RT COMPLETE from 04/28/2023 TECHNIQUE: 2D digital imaging was performed. Three views. FINDINGS: Three a splint is in place at the medial aspect of the hand. There has been no change in the alignmen t of the fracture at the base of the 5th metacarpal. No new findings. DATA REPOSITORY: RADIATION DOSE DELIVERED:
== END 2023-05-05 14:45 | disposition home or self-care (01) ==
LOC: DIORS 14:44
PROVIDERS: PCP Nurse Practitioner Family; Visit Provider Physician Assistant
DX: S62.336D Displaced fracture of neck of fifth metacarpal bone, right hand, subsequent encounter for fracture with routine healing (principal); X58.XXXD Exposure to other specified factors, subsequent encounter
CPT/HCPCS: 73130

== ENCOUNTER 2023-05-12 15:52 | Outpatient (CLI) | payer SELFPAY ==
--- NOTE | 2023-05-12 14:40 | DI.RAD_ITS ---
Exam(s) XR HAND RT COMPLETE EXAM: XR HAND RT COMPLETE CLINICAL HISTORY: F/U FRACTURE. TECHNIQUE: 2D digital imaging was performed. Three views. COMPARISON: CR XR HAND RT COMPLETE from 05/05/2023 FINDINGS: BONES: Fracture at the base of the 5th metacarpal is unchanged in alignment. No new abnormalities.. DATA REPOSITORY: RADIATION DOSE DELIVERED:
== END 2023-05-12 15:53 | disposition home or self-care (01) ==
LOC: DIORS 15:53
PROVIDERS: PCP Nurse Practitioner Family; Visit Provider Physician Assistant
DX: S62.336A Displaced fracture of neck of fifth metacarpal bone, right hand, initial encounter for closed fracture (principal); X58.XXXA Exposure to other specified factors, initial encounter
CPT/HCPCS: 73130

== ENCOUNTER → 2023-05-27 00:44 | Outpatient (CLI) | payer SELFPAY ==
--- NOTE | 2023-05-27 08:00 | DI.US_ITS ---
APPROVED REPORT EXAM: Comprehensive 2D, Doppler, and color-flow Echocardiogram Patient Location: Out-Patient Assistant Professor Sculpture: Zeferino Carl RDCS (AE) Indications: sob on exertion Other Information Study Quality: Good Conclusion Normal left ventricular wall thickness and chamber size. Ejection fraction is 65%. Wall motion is n ormal Normal right ventricular size and systolic function Both atria are normal in size There is no structural or hemodynamically significant valvular disease Wall motion Left Ventricle The left ventricle is normal size. The left ventricular systolic function is normal. The left ventric ular ejection fraction is within the normal range. There is normal left ventricular wall thickness. T here is normal LV segmental wall motion. There is no ventricular septal defect visualized. LVEF is 65 %. Right Ventricle The right ventricle is normal size. The right ventricular systolic function is normal. The RVSP is 11 .6 mmHg. Atria The left atrium size is normal. The right atrium size is normal. The interatrial septum is intact wit h no evidence for an atrial septal defect. Aortic Valve The aortic valve is normal in structure. Aortic valve is trileaflet. There is no aortic valvular sten osis. No aortic regurgitation is present. Mitral Valve The mitral valve is normal in structure. No evidence of mitral valve stenosis. There is no mitral brandon ve regurgitation noted. Tricuspid Valve The tricuspid valve is normal in structure. There is no tricuspid valve stenosis. Trace tricuspid reg urgitation. Pulmonic Valve The pulmonary valve is normal in structure. There is no pulmonic valvular stenosis. There is no pulmo fanny valvular regurgitation. Great Vessels The aortic root is normal in size. Ascending aorta is not well visualized. Aortic arch is normal in c aliber. The IVC collapses <50% with inspiration. Pericardium There is no pericardial effusion. 2D Dimensions IVSD d PLAX 0.77 cm M: 0.6-1.2 Ao Root d 3.16 cm M: 3.1 - 3.7 LVPW d PLAX 0.91 cm M: 0.6 - 1.2 LVID d PLAX 4.41 cm M: 4.2 - 5.8 LVDs 2.77 cm M: 2.5 - 4.0 LV EF Teichholz 67.4 % FS 37.20 % LV EDV (Teich) 87.9 mL LV ESV (Teich) 28.7 mL Stroke Vol Index (Teich) 31.35 M-Mode TAPSE 2.99 cm (M/F) >1.7 Auto EF LV EDV A4C 98.4 mL LV EDV A2C 141.7 mL LV EDV BP 118.0 mL LV ESV A4C 35.8 mL LV ESV A2C 51.3 mL LV ESV BP 43.2 mL LVEF(%) A4C 63.6 % LVEF(%) A2C 63.8 % LVEF(%) BP 63.4 % LV SV A4C 62.6 ml LV SV A2C 90.4 ml LV SV BP 74.8 ml LV CO A4C 4.8 L/min LV CO A2C 7.1 L/min LV CO BP 5.9 L/min HR A4C 76.60 BPM HR A2C 78.43 BPM LV EDV Index (BP) LA Volume LA Length A4C 5.3 cm LA Length A2C LA Area A4C s 11.68 cm2 LA Area A2C s LA Vol A4C A-L 21.72 mL LA Vol A2C A-L LA Vol Biplane A-L LA Vol A4C MOD 19.5 mL LA Vol A2C MOD LA Vol BP MOD RA Volume RA Area A4C 9.7 cm2 RA ESV A4C (A-L) 20.8mL RA Vol/BSA A4C A-L RA Length A4C 3.8 cm RA ESV A4C (MOD) 19.9mL LV Diastology MV E' medial 0.170 (>0.07 m/s) MV E Vmax 0.90 (0.4-1.3 m/s) MV E/E' MED 5.33 (<14) MV A Vmax 0.60 (0.4-1.3 m/s) MV E' lateral 0.180 (>0.1 m/s) E/A Ratio 1.5 MV E/E' LAT 5.03 (<14) MV E' Average 0.175 m/s MV E/E'(average) 5.18 Aortic Valve AoV Vmax 1.03 m/s LVOT Vmax 1.05 m/s AoV Peak Grad 4.2 mmHg LVOT Peak Grad 4.4 mmHg AoV Area (Vmax) 4.42 cm2 LVOT VTI 0.208 m AoV VTI 0.211 m LVOT Mean Grad 2.1 mmHg AoV Mean Minor. 0.70 m/s LVOT SV 89.87 mL AoV Mean Grad 2.3 mmHg LVOT Diam s 2.30 cm AoV Area (VTI) 4.26 cm2 Velocity Ratio 1.02 Mitral Valve MV DT 208 (160-240 msec) Pulmonary Valve PV Vmax 1.04 (0.5-1.5 m/s) RVOT Vmax 0.86 m/s PV Peak Grad 4.4 mmHg RVOT Peak Gr. 3.0 mmHg PV Mean Minor 0.78 m/s RVOT VTI 0.188 m PV Mean Grad 2.7 mmHg RVOT Mean Gr. 1.5 mmHg Tricuspid Valve RA Pressure 8.00 mmHg TR Vmax 0.95 m/s TR Peak Grad 3.6 mmHg RVSP (TR) 11.6 mmHg
== END ==
PROVIDERS: PCP Nurse Practitioner Family; Visit Provider Nurse Practitioner Family
DX: E11.9 Type 2 diabetes mellitus without complications (principal); R06.02 Shortness of breath
CPT/HCPCS: 93306

== ENCOUNTER 2023-06-09 15:05 | Outpatient (CLI) | payer SELFPAY ==
--- NOTE | 2023-06-09 13:45 | DI.RAD_ITS ---
Exam(s) XR HAND RT COMPLETE EXAM: XR HAND RT COMPLETE CLINICAL HISTORY: F/U FRACTURE. TECHNIQUE: 2D digital imaging was performed of the right hand. Three images were obtained. AP, late ral and oblique views were obtained. COMPARISON: CR XR HAND RT COMPLETE from 05/12/2023 FINDINGS: BONES: There has been no change in alignment of the fracture involving the 5th metacarpal bone. No b patricia destructive lesion is seen. JOINTS: No dislocation present. The joint spaces are well maintained. SOFT TISSUE: Normal. IMPRESSION: Stable alignment of the 5th metacarpal fracture. DATA REPOSITORY: RADIATION DOSE DELIVERED:
== END 2023-06-09 15:06 | disposition home or self-care (01) ==
LOC: DIORS 15:05
PROVIDERS: PCP Nurse Practitioner Family; Referring Provider Nurse Practitioner Family; Visit Provider Physician Assistant
DX: S62.326D Displaced fracture of shaft of fifth metacarpal bone, right hand, subsequent encounter for fracture with routine healing (principal); X58.XXXD Exposure to other specified factors, subsequent encounter
CPT/HCPCS: 73130

== ENCOUNTER 2023-09-12 18:41 | Emergency (ER) | payer SELFPAY ==
[2023-09-12 18:46] VITALS: BP 124/73; PULSE 127; RESP 16; TEMP 37.1; O2SAT 99
--- NOTE | 2023-09-12 19:03 | ED.GENADUL_ITS ---
HPI General Mode of arrival: ambulatory . Date/Time Provider Initiated Documentation: 09/12/23 18:51 . Limitations to Documentation: no limitations . Information obtained by: patient . History of Present Illness 32 year old M presents to the emergency department with the chief complaint of n/v, described as moderate, Patient started experiencing this day(s) (1) and it has been constant. No relieving factors improve symptom(s), No exacerbating factors reported . Patient notes denies chest pain and shortness of breath. Patient did receive the following treatments prior to arrival, none Related Data Home Medications Medication Instructions Recorded Confirmed insulin syringe-needle U-100 0.3 #100 ea 08/27/20 06/21/23 mL 31 gauge x 1/4 insulin NPH isoph U-100 human 100 30 unit subcut BID Reli-On Brand 12/04/20 06/21/23 unit/mL subcutaneous suspension insulin regular human 100 unit/mL 1 sliding scale dose subcut 09/21/22 06/21/23 injection solution (Humulin R USEASDIRECTD #10 mL Regular U-100 Insulin) omeprazole 40 mg capsule,delayed 40 mg PO DAILY #30 caps 09/21/22 06/21/23 release sucralfate 1 gram tablet (Carafate) 1 g PO QACHS #120 tabs 09/21/22 06/21/23 flash glucose scanning reader #1 ea 11/12/22 06/21/23 (FreeStyle Kodi 2 [place]) blood-glucose sensor (FreeStyle #1 ea 05/23/23 06/21/23 Kodi 3 Sensor device) insulin degludec 200 unit/mL (3 60 unit (0.3 mL) subcut QHS #9 mL 06/07/23 06/21/23 mL) subcutaneous pen (Tresiba FlexTouch U-200 insulin) pen needle, diabetic 31 gauge x #100 ea 06/07/23 06/21/23 3/16 (BD Ultra-Fine Mini Pen Needle) ondansetron 4 mg disintegrating 4 mg PO Q8H PRN nausea and 09/12/23 tablet vomiting #30 tabs Previous Rx's Medication Instructions Recorded insulin syringe-needle U-100 0.3 #100 ea 08/27/20 mL 31 gauge x 1/4 insulin regular human 100 unit/mL 1 sliding scale dose subcut 09/21/22 injection solution (Humulin R USEASDIRECTD #10 mL Regular U-100 Insulin) omeprazole 40 mg capsule,delayed 40 mg PO DAILY #30 caps 09/21/22 release sucralfate 1 gram tablet (Carafate) 1 g PO QACHS #120 tabs 09/21/22 flash glucose scanning reader #1 ea 11/12/22 (FreeStyle Kodi 2 [place]) blood-glucose sensor (FreeStyle #1 ea 05/23/23 Kodi 3 Sensor device) insulin degludec 200 unit/mL (3 60 unit (0.3 mL) subcut QHS #9 mL 06/07/23 mL) subcutaneous pen (Tresiba FlexTouch U-200 insulin) pen needle, diabetic 31 gauge x #100 ea 06/07/2311/04 (BD Ultra-Fine Mini Pen Needle) ondansetron 4 mg disintegrating 4 mg PO Q8H PRN nausea and 09/12/23 tablet vomiting #30 tabs Allergies Allergy/AdvReac Type Severity Reaction Status Date / Time shellfish derived Allergy Severe Throat Verified 06/09/23 13:52 Swelling General Stated Complaint: GenMedical GEOFF: 3 Review of Systems All systems reviewed & are unremarkable except as noted in HPI and below Constitutional Constitutional: Denies chills, Denies fever(s) and Denies weakness Cardiovascular Cardiovascular: Denies chest pain and Denies dyspnea Respiratory Respiratory: Denies cough and Denies dyspnea Gastrointestinal Gastrointestinal: Denies abdominal pain, Reports nausea and Reports vomiting Integumentary/Breasts Skin/Breast: Denies rash Neurologic Neurologic: Denies weakness Exam Const General: no acute distress Orientation: alert [facility] Head: normal to inspection Ears: external ears normal General nose exam: external nose normal Mouth: moist mucous membranes Eyes General: appearance normal, both eyes and all related structures Neck Neck: normal visual inspection Resp Effort & Inspection: normal respiratory effort and able to speak in complete sentences Cardio Rate: regular rate GI Palpation: soft and nontender Skin General skin exam: no rashes or lesions noted Neuro General: patient alert and patient oriented x3 Extrem General: normal to inspection Psych Mental Status: mental status grossly normal Course Vital Signs Vital signs: Vital Signs Temperature 37.1 C 09/12/23 18:46 Pulse 127 H 09/12/23 18:46 Respiratory Rate 16 09/12/23 18:46 Blood Pressure 124/73 09/12/23 18:46 Pulse Oximetry 99 09/12/23 18:46 Temperature 37.1 C 09/12/23 18:46 Pulse 127 H 09/12/23 18:46 Respiratory Rate 16 09/12/23 18:46 Blood Pressure 124/73 09/12/23 18:46 Pulse Oximetry 99 09/12/23 18:46 Medical Decision Making 32 yo male with hx of insulin dependent diabetes comes in with n/v since yesterday and feels lightheaded now. Denies cp, dyspnea, fevers, chills, doesn't smoke, drink alcohol or use drugs. He is caox4 on arrival, has a soft nontender abdomen, clear lungs. Given lack of abdominal pain or tenderness doubt surgical abdominal pathology. Will check vbg, cbc, cmp, ua and treat with fluids and droperidol and reassess. pt feeling better and requesting to eat, ph is 7.19, ua pending but glucose is 300 so suspect mild to moderate dka. He declines admission, will try subcutaneous insulin and reassess. pt asymptomatic requesting d/c, is tolerating po, did advise normally would check repeat cmp and vbg but he declines to stay and has decision making capacity. HE confirms he has insulin and will f/u with his pcp, return pre cautions given Differential Diagnosis Differential Diagnosis: gastroenteritis, gastroparesis, dka Medical Records Medical records reviewed: Yes I reviewed the patient's medical records. Lab Data Lab results reviewed: Yes I reviewed the patient's lab results. Quality:SDOH Health Related Social Needs: No Data to Display PFSH All Active Problems (Updated 09/12/23 @ 21:35 by Estiven Last MD) DKA (diabetic ketoacidosis) (Acute) Fracture of fifth metacarpal bone of right hand (Acute 04/28/23) Shortness of breath (Acute) Shoulder pain, left (Acute) Low back strain (Acute) Loose stools (Acute) Anxiety (Chronic) Annual physical exam (Acute) Diabetes mellitus (Chronic) Medical History Abdominal symptoms Diabetes mellitus Headache Influenza A Surgical History No pertinent past surgical history Family History Mother Asthma Depression Diabetes Heart disease Hypertension Father Seizures Sister Seizures Social History Smoking/Tobacco Use Status: Former Tobacco Use Tobacco: How many years used: 6 Second Hand Exposure: Yes Smoking risk assessment performed?: Yes Alcohol Intake: never Drug use: Rarely Substance use type: does not use Details: quit marijuana a week ago as of 04/28/23 Caregiver/Support person: No Household members: spouse Communication Needs: None Do you need help understanding health information?: Never Pets and animals: Yes Pets and animals: cat(s) Sexually active: Yes Do you think of yourself as: straight/heterosexual Current gender identity: male What is your relationship status?: How often do you talk on the phone with friends or family?: once per week How often do you get together with friends or relatives?: once per week How often do you attend tenriism or buddhism services?: decline to answer Do you belong to any clubs or organized social groups?: no Panel score (0-1 are the most socially isolated patients): 1 What type of physical activity do you participate in: walking Duration: other Frequency: daily Louise/Spiritism: Episcopal Seatbelt use: always 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 Do you feel safe at home: Yes Do you feel safe in your relationship?: Yes Discharge Plan Disposition Patient Disposition: Home Condition: Stable Discharge Details Clinical Impression: DKA (diabetic ketoacidosis) Primary Care Provider: Matthew Lama ED Provider: Estiven Last Meds and New Rx's Prescriptions: New ondansetron 4 mg tablet,disintegrating 4 mg PO Q8H PRN (Reason: nausea and vomiting) Qty: 30 0RF Continued (DME) pen needle, diabetic [BD Ultra-Fine Mini Pen Needle] 31 gauge x 3/16 needle See Rx Instructions .Route Qty: 100 4RF Rx Instructions: Once daily (DME) insulin syringe-needle U-100 0.3 mL 31 gauge x 1/4 syringe See Rx Instructions .ROUTE .MEDSUPPLY Qty: 100 4RF Rx Instructions: As directed insulin NPH isoph U-100 human 100 unit/mL suspension 30 unit subcut BID (DME) FreeStyle Kodi 2 [place] Misc See Rx Instructions .Route Qty: 1 12RF Rx Instructions: As directed [place] for FreeStyle Kodi 3 (DME) FreeStyle Kodi 3 Sensor Device See Rx Instructions .Route Qty: 1 12RF Rx Instructions: As directed insulin degludec [Tresiba FlexTouch U-200] 200 unit/mL (3 mL) insulin pen 60 unit subcut QHS MDD 80 units Qty: 9 6RF Rx Instructions: Inject 45 units subcutaneously once daily and titrate as directed. Humulin R Regular U-100 Insuln 100 unit/mL solution 1 sliding scale dose subcut USEASDIRECTD Qty: 10 0RF Patient Comments: states he is not taking 04/28/23 Rx Instructions: 1 unit per 10 gm carbohydrates w/ each meal and also follow moderate insulin dose sliding scale per [facility] pharmacy sucralfate [Carafate] 1 gram tablet 1 g PO QACHS Qty: 120 0RF Patient Comments: states he is not taking 04/28/23 omeprazole 40 mg capsule,delayed release(DR/EC) 40 mg PO DAILY Qty: 30 0RF Patient Comments: states he is not taking 04/28/23 Discharge Instructions Additional Instructions: make sure to monitor your glucose level, even if you aren't eating you should still use your insulin if your blood sugars are increasing follow up with your primary care provider within 1 week if you feel more ill, have severe abdominal pain or persistent vomiting return to the emergency department
[2023-09-12 19:39] LABS: BE (Venous) -11 mmol/L (-2-3); HCO3 (Venous) 17 mmol/L (23-28); O2 Sat (Venous) 48 %; TCO2 (Venous) 16 mmol/L (24-29); pCO2 (Venous) 44 mmHg (41-51); pO2 (Venous) 27 mmHg
[2023-09-12 19:44] LABS: pH (Venous) 7.19 (7.31-7.41)
[2023-09-12] MEDS: Droperidol 5 MG/2 ML VIAL 2.5 MG IVP (19:51)
[2023-09-12] MEDS: Normal Saline 1,000 ML 1000 ML IV (19:52)
[2023-09-12] MEDS: Normal Saline Flush 10 ML SYR IVP (19:52)
[2023-09-12 19:55] LABS: Abs Immature Grans 0.05 10^3/uL (0.0-0.06); Absolute Basophil Count 0.04 10^3/uL (0.0-0.2); Absolute Eosinophil Count 0.01 10^3/uL (0.0-0.7); Absolute Lymphocyte Count 0.63 10^3/uL (1.2-3.4); Absolute Monocyte Count 0.48 10^3/uL (0.1-0.8); Absolute Neutrophil Count 5.17 10^3/uL (1.2-6.7); Basophils % 0.6; Eosinophils % 0.2; HCT 53.2 % (40.0-50.0); HGB 17.7 g/dL (13.5-17.5); Immature Grans % 0.8; Lymphocytes % 9.9; MCHC 33.3 % (32.0-36.0); MCV 90 fL (80-95); MPV 9.7 fL (8.0-11.0); Monocytes % 7.5; Platelet Count 254 10^3/uL (130-400); RDW 12.1 % (11.8-14.1); RDW-SD 39.8 fL; WBC 6.38 10^3/uL (4.4-10.8)
[2023-09-12 20:01] LABS: ALT 20 U/L (16-63); AST 16 U/L (15-37); Albumin 4.4 g/dL (3.4-5.0); Alkaline Phosphatase 90 U/L (46-116); Anion Gap 21.6 mmol/L (3-11); BUN 19 mg/dL (7-18); Bilirubin, Total 0.8 mg/dL (0.2-1.0); CO2 17.4 mmol/L (21.0-32.0); CREATININE 1.3 mg/dL (0.70-1.30); Calcium 10.2 mg/dL (8.5-10.1); Chloride 96 mmol/L (98-107); Estimated GFR 74.85 (mL/min/1.73m2); Glucose 312 mg/dL (74-106); Lipase 13 U/L (16-77); Potassium 4.7 mmol/L (3.5-5.1); Sodium 135 mmol/L (136-145); Total Protein 9.2 g/dL (6.4-8.2)
[2023-09-12 20:05] LABS: COVID-19 PCR Negative (Negative); Influenza A PCR Negative (Negative); Influenza B PCR Negative (Negative); RSV PCR Negative (Negative)
[2023-09-12 20:06] LABS: Source Nasopharynx
[2023-09-12 20:26] LABS: Procalcitonin 0.3 ng/mL
[2023-09-12] MEDS: Insulin Glargine 100 UNITS/ML UNIT 21 UNITS SC (20:29)
[2023-09-12] MEDS: Insulin REGULAR-Human 100 UNITS/ML UNIT 15 UNITS SC (20:30)
[2023-09-12 21:33] VITALS: BP 128/74; PULSE 84; RESP 18; TEMP 36.9; O2SAT 99
[2023-09-12 21:44] VITALS: BP 127/50; PULSE 111; RESP 18; TEMP 36.9; O2SAT 98
[2023-09-12] MEDS: Ondansetron O.D.T. 4 MG TABEF, 3 TABS/BTL PO (21:44)
[2023-09-12 21:45] LABS: Bilirubin Negative (Negative); Blood Negative (Negative); Clarity Clear (Clear); Glucose 500 mg/dL (Negative); Ketones >=160 mg/dL (Negative); Leukocyte Esterase Negative (Negative); Nitrite Negative (Negative); Specific Gravity >= 1.030 (1.005-1.025); Urobilinogen 0.2 mg/dL (Up to 0.2); pH 5.5 (5-8)
== END 2023-09-12 21:52 | disposition home or self-care (01) ==
PROVIDERS: Emergency Provider Emergency Medicine; PCP Nurse Practitioner Family
DX: E11.10 Type 2 diabetes mellitus with ketoacidosis without coma (principal); R11.2 Nausea with vomiting, unspecified; R42 Dizziness and giddiness
CPT/HCPCS: 36416; 80053; 82805; 82962; 83690; 84145; 87637; 96361; 96374; 99284; 81003; 83735; 85025; 99283; J1790; J1815

== ENCOUNTER 2024-05-11 10:06 | Emergency (ER) | payer SELFPAY ==
[2024-05-11 10:18] VITALS: BP 132/76; PULSE 96; RESP 18; TEMP 36.9; O2SAT 97
[2024-05-11] MEDS: Loratidine 10 MG TAB 20 MG PO (10:49)
[2024-05-11] MEDS: Ibuprofen 400 MG TAB PO (10:49)
[2024-05-11] MEDS: Famotidine 20 MG TAB 40 MG PO (10:49)
[2024-05-11 11:20] VITALS: BP 117/96; RESP 20; O2SAT 97
--- NOTE | 2024-05-11 11:31 | W.ED.GENAD ---
Discharge Plan Disposition Patient Disposition: Home Condition: Stable Discharge Details Clinical Impression: Allergic reaction Primary Care Provider: Matthew Lama ED Provider: Pranav Mcfarland Home Meds and New Rx's Prescriptions: Continued insulin degludec [Tresiba FlexTouch U-200] 200 unit/mL (3 mL) insulin pen 60 unit subcut QHS MDD 80 units Qty: 9 6RF Rx Instructions: Inject 45 units subcutaneously once daily and titrate as directed. (DME) pen needle, diabetic [BD Ultra-Fine Mini Pen Needle] 31 gauge x 3/16 needle See Rx Instructions .Route Qty: 100 4RF Rx Instructions: Once daily (DME) insulin syringe-needle U-100 0.3 mL 31 gauge x 1/4 syringe See Rx Instructions .ROUTE .MEDSUPPLY Qty: 100 4RF Rx Instructions: As directed insulin NPH isoph U-100 human 100 unit/mL suspension 30 unit subcut BID (DME) FreeStyle Kodi 2 [place] Misc See Rx Instructions .Route Qty: 1 12RF Rx Instructions: As directed [place] for FreeStyle Kodi 3 (DME) FreeStyle Kodi 3 Sensor Device See Rx Instructions .Route Qty: 1 12RF Rx Instructions: As directed ondansetron 4 mg tablet,disintegrating 4 mg PO Q8H PRN (Reason: nausea and vomiting) Qty: 30 0RF Discharge Instructions Instructions: Allergic Reaction ED Additional Instructions: You were seen in the emergency department for the allergic reaction of the skin of your right forearm, you are definitely allergic to something you are exposed to in your basement, I think it would be reasonable to wear long sleeves and gloves this would probably prevent further reaction and any work that needs to be done in the area. If no signs of anaphylaxis or progressing allergic reaction. If you have further rashes please take Benadryl in the evenings which helps with rash and allergic reactions as well as helps you sleep, during the daytime please take an nsuy-vek-txseddk Venus, Claritin or Zyrtec for nondrowsy allergy relief, you may also take the afto-vdm-idneilq medicine famotidine as it is a histamine-2 curry. He also can take regular doses of ibuprofen to help with inflammation and apply topical ikyr-gcb-fimdplf steroids like hydrocortisone to the area of irritation. Please return for any oral symptoms or other multi body system complaints like developing nausea, wheezing, shortness of breath, disseminated rash. Referrals: Matthew Lama NP [Primary Care Provider] - Discharge Data Discharge Date/Time-TO BE ENTERED AT DEPARTURE: 05/11/24 11:50 HPI General Date/Time Provider Initiated Documentation: 05/11/24 10:25. HPI Narrative: 33 year-old male presents to ED today by POV/ambulating with a chief complaint of rash to R forearm after working in his basement, hives formed with onset just prior to arrival. Quality described as itchy rash, no radiation to tongue swelling, shortness of breath, wheezing, diffuse hives, nausea, weakness. Severity is described as mild to moderate. Palliating factors include nothing specific attempted. Provoking factors include nothing specific- unknown allergen. Patient not anticoagulated. Related Data Home Medications ?Medication ?Instructions ?Recorded ?Confirmed insulin syringe-needle U-100 0.3 #100 ea 08/27/20 05/11/24 mL 31 gauge x 1/4 insulin NPH isoph U-100 human 100 30 unit subcut BID Reli-On Brand 12/04/20 05/11/24 unit/mL subcutaneous suspension flash glucose scanning reader #1 ea 11/12/22 05/11/24 (FreeStyle Kodi 2 [place]) pen needle, diabetic 31 gauge x #100 ea 06/07/23 05/11/24 3/16 (BD Ultra-Fine Mini Pen Needle) ondansetron 4 mg disintegrating 4 mg PO Q8H PRN nausea and 09/12/23 05/11/24 tablet vomiting #30 tabs blood-glucose sensor (FreeStyle #1 ea 12/05/23 05/11/24 Kodi 3 Sensor device) insulin degludec 200 unit/mL (3 60 unit (0.3 mL) subcut QHS #9 mL 05/09/24 05/11/24 mL) subcutaneous pen (Tresiba FlexTouch U-200 insulin) Previous Rx's ?Medication ?Instructions ?Recorded insulin syringe-needle U-100 0.3 #100 ea 08/27/20 mL 31 gauge x 1/4 flash glucose scanning reader #1 ea 11/12/22 (FreeStyle Kodi 2 [place]) pen needle, diabetic 31 gauge x #100 ea 06/07/23 3/16 (BD Ultra-Fine Mini Pen Needle) ondansetron 4 mg disintegrating 4 mg PO Q8H PRN nausea and 09/12/23 tablet vomiting #30 tabs blood-glucose sensor (FreeStyle #1 ea 12/05/23 Kodi 3 Sensor device) insulin degludec 200 unit/mL (3 60 unit (0.3 mL) subcut QHS #9 mL 05/09/24 mL) subcutaneous pen (Tresiba FlexTouch U-200 insulin) Allergies Allergy/AdvReac Type Severity Reaction Status Date / Time shellfish derived Allergy Severe Throat Verified 05/11/24 11:45 Swelling General Stated Complaint: Allergic GEOFF: 3 Review of Systems All systems reviewed & are unremarkable except as noted in HPI and below Exam Narrative Exam Narrative: GENERAL APPEARANCE: Well-nourished, non-toxic, awake and alert, atraumatic, no acute distress. SKIN: Warm, pink, dry, intact, isolated urticaria to R forearm that resolved completely from anti-histamines HEAD: Normocephalic, atraumatic, normal hair distribution for gender/age. EYES: Normal conjunctiva, no exudates on lids/lashes. ENT: Nares patent, no circumoral cyanosis, no facial swelling NECK: Supple, trachea midline, painless cervical ROM. LUNGS/CHEST: Lungs CTA bilaterally- no wheezing, non-labored respirations, normal A/P diameter, symmetrical expansion, no chest wall deformity HEART (CV/PV): Regular rate and rhythm without murmur, no peripheral edema, no JVD. ABDOMEN: Soft, non-distended, no guarding. MSK: Normal ROM, no swelling/deformity to bilateral UEs or LEs, moving all extremities without weakness, no cyanosis, spine midline without tenderness, normal curvature. NEURO: Mental Status AAOx4 - alert to person, place, time, events No facial droop, no forehead involvement. Motor: No focal weakness - strength 5/5 in bilateral UEs and LEs, proximal and distal, symmetric. Sensory: sensation intact to light touch globally. Gait normal: patient ambulated without ataxia into ED room. PSYCH: euthymic, cooperative, pleasant, appropriate speech Course Vital Signs Vital signs: Vital Signs Temperature 36.9 C 05/11/24 10:18 Pulse 96 H 05/11/24 10:18 Respiratory Rate 05/11/24 10:18 Blood Pressure 132/76 05/11/24 10:18 Pulse Oximetry 97 05/11/24 10:18 Temperature 36.9 C 05/11/24 10:18 Temperature Source Oral 05/11/24 10:18 Pulse 96 H 05/11/24 10:18 Respiratory Rate 18 05/11/24 10:18 Respiratory Effort Normal, Non-Labored 05/11/24 11:04 Respiratory Pattern Normal 05/11/24 11:04 Blood Pressure 132/76 05/11/24 10:18 Pulse Oximetry 97 05/11/24 10:18 Medical Decision Making This dictation utilizes mwgqo-dk-lxjh dictation software and may contain unedited grammatical errors. 33 year-old male presents to ED today by POV/ambulating with a chief complaint of rash to R forearm after working in his basement, hives formed with onset just prior to arrival. Quality described as itchy rash, no radiation to tongue swelling, shortness of breath, wheezing, diffuse hives, nausea, weakness. Severity is described as mild to moderate. Palliating factors include nothing specific attempted. Provoking factors include nothing specific- unknown allergen. Patients' medical history: Diabetes mellitus. Family and social history: Noncontributory. Pertinent exam findings / vital signs include urticaria isolated to the right forearm that resolved with antihistamines here in the ED, no wheezing, no tongue or neck swelling, no systemic signs. Differential / pathologies of concern include allergic reaction, not anaphylaxis. Diagnostic studies of: -None. Interventions of: -P.o. loratadine, p.o. famotidine, p.o. ibuprofen. ED Course/Assessment/Plan: 33-year-old male presented with isolated superficial allergic reaction to the right forearm from unknown allergen working in his basement, responded well to antihistamines, counseled him on continuing daily antihistamines and adding topical hydrocortisone if desired and taking anti-inflammatories, stressed strict return criteria for worsening of reaction in the next few hours or other systemic symptoms like nausea or weakness or mouth or tongue swelling, shortness of breath. Findings not consistent with anaphylaxis. Disposition of allergic reaction. Patient verbalized understanding of the plan and return to ED criteria and engaged in shared decision making. Medical Records Medical records reviewed: Yes I reviewed the patient's medical records. Quality:SDOH Health Related Social Needs: No Data to Display PFSH All Active Problems (Updated 05/11/24 @ 11:41 by GONZALO Rust) Allergic reaction (Acute) Fracture of fifth metacarpal bone of right hand (Acute 04/28/23) Shortness of breath (Acute) Shoulder pain, left (Acute) Low back strain (Acute) Loose stools (Acute) Anxiety (Chronic) Annual physical exam (Acute) Diabetes mellitus (Chronic) Medical History Headache Abdominal symptoms Influenza A Diabetes mellitus Surgical History No pertinent past surgical history Family History Mother Asthma Depression Diabetes Heart disease Hypertension Father Seizures Sister Seizures Social History Smoking/Tobacco Use Status: Never Tobacco: How many years used: 6 Second Hand Exposure: Yes Smoking risk assessment performed?: Yes Alcohol Intake: never Drug use: Rarely Substance use type: does not use Caregiver/Support person: No Household members: spouse Housing: house Communication Needs: None Do you need help understanding health information?: Never Pets and animals: Yes Pets and animals: cat(s) Sexually active: Yes Do you think of yourself as: straight/heterosexual Current gender identity: male What is your relationship status?: How often do you talk on the phone with friends or family?: once per week How often do you get together with friends or relatives?: once per week How often do you attend uatsdin or presybeterian services?: decline to answer Do you belong to any clubs or organized social groups?: no Panel score (0-1 are the most socially isolated patients): 1 What type of physical activity do you participate in: walking Duration: other Frequency: daily Louise/Taoism: Methodist Seatbelt use: always Drive intox or ride w/intox armored car guard and driver: No Do you feel safe at home: Yes Do you feel safe in your relationship?: Yes
[2024-05-11 11:44] VITALS: BP 126/80; PULSE 64; RESP 18; TEMP 36.6; O2SAT 99
== END 2024-05-11 11:50 | disposition home or self-care (01) ==
PROVIDERS: Emergency Provider Physician Assistant; PCP Nurse Practitioner Family
DX: L50.9 Urticaria, unspecified (principal); T78.40XA Allergy, unspecified, initial encounter; E11.9 Type 2 diabetes mellitus without complications; Z79.4 Long term (current) use of insulin
CPT/HCPCS: 99283

== ENCOUNTER 2024-06-09 19:33 | Emergency (ER) | payer SELFPAY ==
[2024-06-09 19:37] VITALS: BP 160/81; PULSE 109; RESP 16; TEMP 36.9; O2SAT 100
--- NOTE | 2024-06-09 19:56 | ED.GENADUL_ITS ---
Discharge Plan Disposition Patient Disposition: Home Discharge Details Clinical Impression: Diabetes mellitus Primary Care Provider: Matthew Lama ED Provider: Albina Ram Home Meds and New Rx's Prescriptions: Continued (DME) pen needle, diabetic [BD Ultra-Fine Mini Pen Needle] 31 gauge x 3/16 needle See Rx Instructions .Route Qty: 100 4RF Rx Instructions: Once daily (DME) insulin syringe-needle U-100 0.3 mL 31 gauge x 1/4 syringe See Rx Instructions .ROUTE .MEDSUPPLY Qty: 100 4RF Rx Instructions: As directed insulin NPH isoph U-100 human 100 unit/mL suspension 30 unit subcut BID (DME) FreeStyle Kodi 2 [place] Misc See Rx Instructions .Route Qty: 1 12RF Rx Instructions: As directed [place] for FreeStyle Kodi 3 insulin degludec [Tresiba FlexTouch U-200] 200 unit/mL (3 mL) insulin pen 60 unit subcut QHS MDD 80 units Qty: 9 6RF Rx Instructions: Inject 45 units subcutaneously once daily and titrate as directed. (DME) FreeStyle Kodi 3 Sensor Device See Rx Instructions .Route Qty: 1 12RF Rx Instructions: As directed Discharge Instructions Additional Instructions: Please follow-up with your primary care provider to discuss the issues with your continuous glucose monitor. Please keep a glucose monitor on you at all times to check your blood sugars when your CGM is not working. Continue to keep your glucose tablets on you at all times. Follow up on picking up your Tresiba as prescribed. I recommend that you go directly to [facility] to get a fingerstick glucose monitor. Your blood sugars were stable here in the emergency department. Keep an eye out for signs of hypoglycemia and treat as needed. Return to emergency care if you have any new/concerning symptoms or if you are very concerned and need to be rechecked again immediately Referrals: Matthew Lama, [employer] [Primary Care Provider] - HPI General Date/Time Provider Initiated Documentation: 06/09/24 19:46 . HPI Narrative: Sung is a 33-year-old male with diabetes who presents to the emergency department today for evaluation of CGM not working. Tonight he used his Novolin insulin after dinner and noticed his blood sugar dropped precipitously from 4 52-50 within 15 minutes. It then lost signal, which often happens when he has low blood sugar. He reports he was feeling well when this happened, denies confusion, dizziness, cold sweats, tremors, behavior change. He reports he has been feeling well recently, denies recent fever/chills, cough, change in p.o. intake, change in bowel or bladder function, change in medications. He does have symptomatic hypoglycemia when he does get hypoglycemic, including tremors and confusion. He reports that he has had problems with his koid since receiving it, has changed all the parts including the sensor, we installed the program, and changed phones. Unsure why this keeps happening. Physical exam very reassuring. Patient is alert and oriented, no acute distress. Easy work of breathing, lung sounds clear bilaterally. Normal heart sounds. Skin is warm and dry, no diaphoresis. No tremors noted. History and presentation consistent with CGM malfunction. There is no indication that Sung experienced any symptoms or hypoglycemia, this was confirmed by 2 consecutive fingersticks here in the emergency department. [facility] for at home use they can check his blood sugars throughout the day if the CGM is not working. Educated him on importance of keeping glucose at hand and following up with PCP/informatics educator to look into alternatives to the kodi, which appears to be malfunctioning. Reviewed discharge instructions with patient, including red flags indicating need for return to emergency care. He voices agreement with plan of care, plans to go to [facility] to sampler pickup glucose monitor this evening before it closes. Related Data Home Medications ?Medication ?Instructions ?Recorded ?Confirmed insulin syringe-needle U-100 0.3 #100 ea 08/27/20 06/09/24 mL 31 gauge x 1/4 insulin NPH isoph U-100 human 100 30 unit subcut BID Reli-On Brand 12/04/20 06/09/24 unit/mL subcutaneous suspension flash glucose scanning reader #1 ea 11/12/22 06/09/24 (FreeStyle Kodi 2 [place]) pen needle, diabetic 31 gauge x #100 ea 06/07/23 06/09/24 3/16 (BD Ultra-Fine Mini Pen Needle) blood-glucose sensor (FreeStyle #1 ea 06/04/24 06/09/24 Kodi 3 Sensor device) insulin degludec 200 unit/mL (3 60 unit (0.3 mL) subcut QHS #9 mL 06/04/24 06/09/24 mL) subcutaneous pen (Tresiba FlexTouch U-200 insulin) Previous Rx's ?Medication ?Instructions ?Recorded insulin syringe-needle U-100 0.3 #100 ea 08/27/20 mL 31 gauge x 1/4 flash glucose scanning reader #1 ea 11/12/22 (FreeStyle Kodi 2 [place]) pen needle, diabetic 31 gauge x #100 ea 06/07/23/ (BD Ultra-Fine Mini Pen Needle) blood-glucose sensor (FreeStyle #1 ea 06/04/24 Kodi 3 Sensor device) insulin degludec 200 unit/mL (3 60 unit (0.3 mL) subcut QHS #9 mL 06/04/24 mL) subcutaneous pen (Tresiba FlexTouch U-200 insulin) Allergies Allergy/AdvReac Type Severity Reaction Status Date / Time shellfish derived Allergy Severe Throat Verified 06/09/24 19:40 Swelling General Stated Complaint: Diabetes GEOFF: 4 Review of Systems Narrative: see HPI Exam Const General: cooperative, healthy appearing, comfortable, no acute distress, well developed and well groomed Nutritional Appearance: average body habitus Orientation: alert and oriented x3 Resp Effort & Inspection: normal respiratory effort and able to speak in complete sentences Auscultation: clear to auscultation bilaterally Cardio Rate: regular rate Rhythm: regular rhythm Skin Other: no diaphoresis or pallor Neuro General: patient alert, patient oriented x3, tone normal and moves all extremities Psych Appearance: grossly normal Mental Status: mental status grossly normal Speech and Movement: speech and movement normal Mood: congruent mood Affect: normal affect Course Vital Signs Vital signs: Vital Signs Temperature 36.9 C 06/09/24 19:37 Pulse 109 H 06/09/24 19:37 Respiratory Rate 16 06/09/24 19:37 Blood Pressure 160/81 H 06/09/24 19:37 Pulse Oximetry 100 06/09/24 19:37 Temperature 36.9 C 06/09/24 19:37 Pulse 109 H 06/09/24 19:37 Respiratory Rate 16 06/09/24 19:37 Respiratory Effort Normal 06/09/24 19:39 Blood Pressure 160/81 H 06/09/24 19:37 Pulse Oximetry 100 06/09/24 19:37 Pain Level 0 10/19/24 19:37 Medical Decision Making Quality:SDOH Health Related Social Needs: Health related social needs inadequate housing(Z59.1) PFSH All Active Problems (Updated 06/09/24 @ 19:58 by Albina Moore) Allergic reaction (Acute) Fracture of fifth metacarpal bone of right hand (Acute 04/28/23) Shortness of breath (Acute) Shoulder pain, left (Acute) Low back strain (Acute) Loose stools (Acute) Anxiety (Chronic) Annual physical exam (Acute) Diabetes mellitus (Chronic) Medical History Headache Abdominal symptoms Influenza A Diabetes mellitus Surgical History No pertinent past surgical history Family History Mother Asthma Depression Diabetes Heart disease Hypertension Father Seizures Sister Seizures Social History Smoking/Tobacco Use Status: Never Tobacco: How many years used: 6 Second Hand Exposure: Yes Smoking risk assessment performed?: Yes Alcohol Intake: never Drug use: Rarely Substance use type: does not use Caregiver/Support person: No Household members: spouse Housing: house Communication Needs: None Do you need help understanding health information?: Never Pets and animals: Yes Pets and animals: cat(s) Sexually active: Yes Do you think of yourself as: straight/heterosexual Current gender identity: male What is your relationship status?: How often do you talk on the phone with friends or family?: once per week How often do you get together with friends or relatives?: once per week How often do you attend baptist or taoism services?: decline to answer Do you belong to any clubs or organized social groups?: no Panel score (0-1 are the most socially isolated patients): 1 What type of physical activity do you participate in: walking Duration: other Frequency: daily Louise/Mormon: Adventist Seatbelt use: always Drive intox or ride w/intox utility driver: No Do you feel safe at home: Yes Do you feel safe in your relationship?: Yes
== END 2024-06-09 20:11 | disposition home or self-care (01) ==
LOC: ER 20:06
PROVIDERS: Emergency Provider Nurse Practitioner Family; PCP Nurse Practitioner Family
DX: E11.65 Type 2 diabetes mellitus with hyperglycemia (principal); Z79.4 Long term (current) use of insulin
CPT/HCPCS: 99283

== ENCOUNTER 2024-06-10 15:14 | Inpatient (IN) | payer SELFPAY ==
[2024-06-10] VITALS (47 sets, daily range): BP systolic 108–141; BP diastolic 63–103; PULSE 86–138; RESP 12–22; TEMP 37–37.1; O2SAT 96–100
--- NOTE | 2024-06-10 15:30 | RT.EKG_ITS ---
APPROVED REPORT Exam: Resting ECG Reason for Exam: concern for DKA Patient Location: E HR:126 bpm ECG Measurements Heart Rate 126 AXIS OR 138 P 87 QRSd 85 QRS 126 QT 316 T 50 QTc 458 Conclusion Sinus tachycardia, rate 126 No interval abnormalities, no STEMI
--- NOTE | 2024-06-10 15:45 | ED.GENADUL_ITS ---
Discharge Plan Discharge Details Chief Complaint: Diabetes Primary Care Provider: Matthew Lama ED Provider: Albina Ram Home Meds and New Rx's Prescriptions: No Action (DME) pen needle, diabetic [BD Ultra-Fine Mini Pen Needle] 31 gauge x 3/16 needle See Rx Instructions .Route Qty: 100 4RF Rx Instructions: Once daily (DME) insulin syringe-needle U-100 0.3 mL 31 gauge x 1/4 syringe See Rx Instructions .ROUTE .MEDSUPPLY Qty: 100 4RF Rx Instructions: As directed insulin NPH isoph U-100 human 100 unit/mL suspension 30 unit subcut BID (DME) FreeStyle Kodi 2 Davis Misc See Rx Instructions .Route Qty: 1 12RF Rx Instructions: As directed Davis for FreeStyle Kodi 3 insulin degludec [Tresiba FlexTouch U-200] 200 unit/mL (3 mL) insulin pen 60 unit subcut QHS MDD 80 units Qty: 9 6RF Rx Instructions: Inject 45 units subcutaneously once daily and titrate as directed. (DME) FreeStyle Kodi 3 Sensor Device See Rx Instructions .Route Qty: 1 12RF Rx Instructions: As directed HPI General Date/Time Provider Initiated Documentation: 06/10/24 15:32 . HPI Narrative: Sung is a 33 year old male with IDDM (type 1.5) who presents to the ED accompanied by his for evaluation of nausea/vomiting with hot/cold chills and general feeling of unwellness. He reports he started feeling unwell this morning with a bit of foggy headedness, developed nausea/vomiting around lunch time. Has been only able to keep down sips of water. Denies recorded fever, congestion, sore throat, cough, chest pain, abdominal pain, change in bowel/bladder function, dysuria or foul smelling urine, rashes. No BM today, normal BM yesterday. has been sick with URI sx, no recent ill contacts with n/v. Denies other chronic illness. Has a h/o DKA requiring ICU admission previously. He has a CGM, blood sugars have been in 250-300 range (usually 400+, last A1C was 12). Physical exam reassuring. Sung is alert and oriented, in no acute distress though does appear nauseated during exam. MMM. PERRL, EOMs intact. Tachycardia noted. Easy WOB, lung sounds clear bilaterally. Abdomen is soft, nondistended, nontender to palpation with hyperactive BS. D/dx includes but is not limited to: DKA/HHS, gastroenteritis, electrolyte imbalance, dehydration, small bowel obstruction less likely I independently interpreted the following tests: EKG shows sinus tachycardia rate 126, normal MT and QT intervals; unchanged from previous on 05/02/23, no changes c/w acute ischemia. VBG remarkable for metabolic acidosis with pH 7.21.CMP notable for AG 25.1. K 4.4. CBC and lipase reassuring. Mag and Phosp reassuring. While in the emergency department Sung initially received 1 L normal saline for rehydration and Zofran for nausea. As he continued to report a headache accompanying nausea, a dose of Benadryl given with good improvement of symptoms. 1800: Repeat ABG performed, pH now 7.14 with CO2 35 and Hc03 11. AG has decreased to 22.3. K stable at 5.1. insulin drip initiated with IV fluids runn ing. After blood sugars stabilized, IV fluids switched to D5/0.45% NS. Magnesium supplementation given for replenishment after rpt labs. Will continue every 30 minute fingersticks and Q 2-hour VBG/BMP/mag 1900: Discussed case with Dr. Castillo, hospitalist. Patient to be admitted to ICU for management of DKA. Related Data Home Medications ?Medication ?Instructions ?Recorded ?Confirmed insulin syringe-needle U-100 0.3 #100 ea 08/27/20 06/10/24 mL 31 gauge x 1/4 insulin NPH isoph U-100 human 100 30 unit subcut BID Reli-On Brand 12/04/20 06/10/24 unit/mL subcutaneous suspension flash glucose scanning reader #1 ea 11/12/22 06/10/24 (FreeStyle Kodi 2 Davis) pen needle, diabetic 31 gauge x #100 ea 06/07/23 06/10/24 3/16 (BD Ultra-Fine Mini Pen Needle) blood-glucose sensor (FreeStyle #1 ea 06/04/24 06/10/24 Kodi 3 Sensor device) insulin degludec 200 unit/mL (3 60 unit (0.3 mL) subcut QHS #9 mL 06/04/24 06/10/24 mL) subcutaneous pen (Tresiba FlexTouch U-200 insulin) Previous Rx's ?Medication ?Instructions ?Recorded insulin syringe-needle U-100 0.3 #100 ea 08/27/20 mL 31 gauge x 1/4 flash glucose scanning reader #1 ea 11/12/22 (FreeStyle Kodi 2 Davis) pen needle, diabetic 31 gauge x #100 ea 06/07/23 3/16 (BD Ultra-Fine Mini Pen Needle) blood-glucose sensor (FreeStyle #1 ea 06/04/24 Kodi 3 Sensor device) insulin degludec 200 unit/mL (3 60 unit (0.3 mL) subcut QHS #9 mL 06/04/24 mL) subcutaneous pen (Tresiba FlexTouch U-200 insulin) Allergies Allergy/AdvReac Type Severity Reaction Status Date / Time shellfish derived Allergy Severe Throat Verified 06/10/24 15:27 Swelling General Stated Complaint: Diabetes GEOFF: 2 Review of Systems Narrative: see HPI Exam Const General: cooperative, comfortable, well developed and well groomed Nutritional Appearance: thin Orientation: alert and oriented x3 HENMT General nose exam: external nose normal Mouth: oral mucosae normal, tongue normal and moist mucous membranes Resp Effort & Inspection: normal respiratory effort and able to speak in complete sentences Auscultation: clear to auscultation bilaterally Cardio Rate: tachycardic Rhythm: regular rhythm GI Inspection: normal to inspection and non-distended Palpation: soft, not firm, no guarding and nontender Auscultation: hyperactive bowel sounds Neuro General: gait normal, tone normal and moves all extremities Cranial Nerves: PERRL and EOM intact bilaterally Course Vital Signs Vital signs: Vital Signs Temperature 37.1 C 06/10/24 15:24 Pulse 138 H 06/10/24 15:24 Respiratory Rate 16 06/10/24 15:24 Blood Pressure 125/68 06/10/24 15:24 Pulse Oximetry 97 06/10/24 15:24 Temperature 37.1 C 06/10/24 15:24 Temperature Source Oral 06/10/24 15:24 Pulse 138 H 06/10/24 15:24 Respiratory Rate 16 06/10/24 15:24 Blood Pressure 125/68 06/10/24 15:24 Blood Pressure Position Sitting 06/10/24 15:24 Pulse Oximetry 97 06/10/24 15:24 Oxygen Delivery Method Room Air 06/10/24 15:24 Oxygen Flow Rate 0 06/10/24 15:24 Pain Level 0 06/10/24 15:24 Medical Decision Making Quality:SDOH Health Related Social Needs: Health related social needs inadequate housing(Z59.1) PFSH All Active Problems (Updated 06/10/24 @ 18:23 by Ry Castillo MD) Diabetes mellitus type 1.5 (Acute) DKA (diabetic ketoacidosis) (Acute) Allergic reaction (Acute) Fracture of fifth metacarpal bone of right hand (Acute 04/28/23) Shortness of breath (Acute) Shoulder pain, left (Acute) Low back strain (Acute) Loose stools (Acute) Anxiety (Chronic) Annual physical exam (Acute) Diabetes mellitus (Chronic) Medical History Headache Abdominal symptoms Influenza A Diabetes mellitus Surgical History No pertinent past surgical history Family History Mother Asthma Depression Diabetes Heart disease Hypertension Father Seizures Sister Seizures Social History Smoking/Tobacco Use Status: Never Tobacco: How many years used: 6 Second Hand Exposure: Yes Smoking risk assessment performed?: Yes Alcohol Intake: never Drug use: Rarely Substance use type: does not use Caregiver/Support person: No Household members: spouse Housing: house Communication Needs: None Do you need help understanding health information?: Never Pets and animals: Yes Pets and animals: cat(s) Sexually active: Yes Do you think of yourself as: straight/heterosexual Current gender identity: male What is your relationship status?: How often do you talk on the phone with friends or family?: once per week How often do you get together with friends or relatives?: once per week How often do you attend christianity or pentecostal services?: decline to answer Do you belong to any clubs or organized social groups?: no Panel score (0-1 are the most socially isolated patients): 1 What type of physical activity do you participate in: walking Duration: other Frequency: daily Louise/Anabaptist: Catholic Seatbelt use: always 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
[2024-06-10] MEDS: Ondansetron 4 MG/2 ML VIAL IVP (16:05)
[2024-06-10 16:16] LABS: BE (Venous) -15 mmol/L (-2-3); HCO3 (Venous) 13 mmol/L (23-28); O2 Sat (Venous) 85 %; TCO2 (Venous) 11 mmol/L (24-29); pCO2 (Venous) 31 mmHg (41-51); pH (Venous) 7.21 (7.31-7.41); pO2 (Venous) 52 mmHg
[2024-06-10] MEDS: Normal Saline 1,000 ML 1000 ML IV (16:18)
[2024-06-10 16:24] LABS: Abs Immature Grans 0.04 10^3/uL (0.0-0.06); Absolute Eosinophil Count 0.04 10^3/uL (0.0-0.7); Absolute Lymphocyte Count 1.29 10^3/uL (1.2-3.4); Absolute Monocyte Count 0.41 10^3/uL (0.1-0.8); Absolute Neutrophil Count 5.45 10^3/uL (1.2-6.7); Basophils % 1.4 %; Eosinophils % 0.5 %; HCT 51.3 % (40.0-50.0); HGB 16.9 g/dL (13.5-17.5); Immature Grans % 0.5 %; Lymphocytes % 17.6 %; MCH 30.9 pg (27.0-33.0); MCHC 32.9 % (32.0-36.0); MCV 94 fL (80-95); MPV 9.8 fL (8.0-11.0); Monocytes % 5.6 %; Neutrophils % 74.4 %; Platelet Count 264 10^3/uL (130-400); RBC 5.47 10^6/uL (4.36-5.78); RDW 12.1 % (11.8-14.1); RDW-SD 42.3 fL; WBC 7.33 10^3/uL (4.4-10.8)
[2024-06-10 16:25] LABS: Bilirubin Negative (Negative); Blood Negative (Negative); Clarity Clear (Clear); Glucose 500 mg/dL (Negative); Ketones >=160 mg/dL (Negative); Leukocyte Esterase Negative (Negative); Nitrite Negative (Negative); Specific Gravity >= 1.030 (1.005-1.025); Urobilinogen 0.2 mg/dL (Up to 0.2); pH 5.5 (5-8)
[2024-06-10 16:38] LABS: Lipase 16 U/L (16-77)
[2024-06-10 16:41] LABS: ALT 22 U/L (16-63); AST 14 U/L (15-37); Albumin 4.4 g/dL (3.4-5.0); Alkaline Phosphatase 112 U/L (46-116); Anion Gap 25.1 mmol/L (3-11); BUN 17 mg/dL (7-18); Bilirubin, Total 0.75 mg/dL (0.2-1.0); CO2 13.9 mmol/L (21.0-32.0); CREATININE 1.2 mg/dL (0.70-1.30); Calcium 10.3 mg/dL (8.5-10.1); Chloride 99 mmol/L (98-107); Estimated GFR 81.89 (mL/min/1.73m2); Glucose 296 mg/dL (74-106); Potassium 4.4 mmol/L (3.5-5.1); Sodium 138 mmol/L (136-145); Total Protein 9.1 g/dL (6.4-8.2)
[2024-06-10] MEDS: POTASSIUM CHLORIDE 20 MEQ/100 ML BAG 50 MEQ IV_INF (17:31)
[2024-06-10] MEDS: INSULIN REGULAR IN 0.9 % NACL 100 UNIT/100 ML BAG 8 UNIT IVINF (17:32)
[2024-06-10 17:52] LABS: Lab Add On Test DONE; Magnesium 1.9 mg/dL (1.8-2.4)
[2024-06-10 17:55] LABS: PHOSPHORUS 4.1 mg/dL (2.6-4.7)
[2024-06-10 18:08] LABS: COVID-19 PCR Negative (Negative); Influenza A PCR Negative (Negative); Influenza B PCR Negative (Negative); RSV PCR Negative (Negative)
[2024-06-10 18:11] LABS: Source NASOPHARYNX
[2024-06-10 18:19] LABS: BE (Venous) -17 mmol/L (-2-3); HCO3 (Venous) 12 mmol/L (23-28); O2 Sat (Venous) 84 %; TCO2 (Venous) 11 mmol/L (24-29); pCO2 (Venous) 35 mmHg (41-51); pO2 (Venous) 54 mmHg
[2024-06-10 18:22] LABS: pH (Venous) 7.14 (7.31-7.41)
--- NOTE | 2024-06-10 18:22 | HPE_ITS ---
Date of service: 06/10/24 Time of Service: 18:22 Assessment and Plan Assessment and plan (1) DKA (diabetic ketoacidosis): Status: Acute Assessment and plan: -Patient meets criteria for DKA with an anion gap of 25.1, acidosis on VBG, and blood glucose of about 300 -Patient will be placed on DKA protocol with continuous insulin drip with appropriate glucose and or potassium containing fluids until patient's anion gap has closed -Once gap is closed and patient is tolerating p.o. intake, patient will transition back to long-acting insulin (2) Diabetes mellitus type 1.5: Status: Acute Assessment and plan: - Patient has continuous blood glucose monitor which is apparently been reading high over the last few months with a A1c of 12 -Will manage DKA as noted above -Recommend close follow-up with PCP or endocrinology as patient appears to have difficulty with blood glucose management History of Present Illness History of Present Illness Chief Complaint: nausea, vomiting Narrative: 33-year-old male with a past medical history of type 1.5 diabetes on insulin presents to the emergency department with nausea vomiting, hot and cold sweats. Patient states that he had been feeling unwell in the morning presented to the emergency department feeling a little foggy, and developing nausea and vomiting around lunchtime having only been able to keep down a few sips of water since then. He denies any fever, cough, abdominal pain, constipation, diarrhea or dysuria. In the emergency department the patient was noted as having normal physical exam being alert and oriented, not appearing in any acute distress though was nauseous. His vital signs were within normal limits with the exception of some tachycardia with a heart rate in the 120s. CBC was unremarkable however CMP did show an anion gap of 25.1 with a glucose of 296, and a VBG showed pH of 7.21 pCO2 of 31 bicarb of 13. At which time was determined that the patient was in DKA. He was placed on DKA protocol and emergency room GONZALO traore hospitalist for admission for patient with diabetic ketoacidosis who will require ICU admission for continuous insulin drip. Review of Systems All systems reviewed & are unremarkable except as noted in HPI and below PFSH All Active Problems (Updated 06/11/24 @ 00:08 by CHACHO MAN) DKA (diabetic ketoacidosis) (Acute) Diabetes mellitus type 1.5 (Acute) DKA (diabetic ketoacidosis) (Acute) Fracture of fifth metacarpal bone of right hand (Acute 04/28/23) Shortness of breath (Acute) Shoulder pain, left (Acute) Low back strain (Acute) Loose stools (Acute) Anxiety (Chronic) Annual physical exam (Acute) Diabetes mellitus (Chronic) Medical History Headache Abdominal symptoms Influenza A Diabetes mellitus Surgical History No pertinent past surgical history Family History Mother Asthma Depression Diabetes Heart disease Hypertension Father Seizures Sister Seizures Social History Smoking/Tobacco Use Status: Never Tobacco: How many years used: 6 Second Hand Exposure: Yes Smoking risk assessment performed?: Yes Alcohol Intake: never Drug use: Rarely Substance use type: does not use Caregiver/Support person: No Household members: spouse Housing: house Communication Needs: None Do you need help understanding health information?: Never Pets and animals: Yes Pets and animals: cat(s) Sexually active: Yes Do you think of yourself as: straight/heterosexual Current gender identity: male What is your relationship status?: How often do you talk on the phone with friends or family?: once per week How often do you get together with friends or relatives?: once per week How often do you attend yarsanism or alevism services?: decline to answer Do you belong to any clubs or organized social groups?: no Panel score (0-1 are the most socially isolated patients): 1 What type of physical activity do you participate in: walking Duration: other Frequency: daily Louise/Pentecostal: Buddhism Seatbelt use: always 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 Do you feel safe at home: Yes Do you feel safe in your relationship?: Yes Meds Allergies and Home Medications Allergies Allergy/AdvReac Type Severity Reaction Status Date / Time shellfish derived Allergy Severe Throat Verified 06/10/24 15:27 Swelling Home Medications ?Medication ?Instructions ?Recorded ?Confirmed ?Type insulin syringe-needle U-100 0.3 #100 ea 08/27/20 06/10/24 Rx mL 31 gauge x 1/4 insulin NPH isoph U-100 human 100 30 unit subcut BID Reli-On Brand 12/04/20 06/10/24 History unit/mL subcutaneous suspension flash glucose scanning reader #1 ea 11/12/22 06/10/24 Rx (FreeStyle Kodi 2 [place]) pen needle, diabetic 31 gauge x #100 ea 06/07/23 06/10/24 Rx 3/16 (BD Ultra-Fine Mini Pen Needle) blood-glucose sensor (FreeStyle #1 ea 06/04/24 06/10/24 Rx Kodi 3 Sensor device) insulin degludec 200 unit/mL (3 60 unit (0.3 mL) subcut QHS #9 mL 06/04/24 06/10/24 Rx mL) subcutaneous pen (Tresiba FlexTouch U-200 insulin) Exam Narrative Exam Narrative: Well-appearing young gentleman laying in bed in no acute distress, ANO x 4, heart regular rhythm, lungs clear to auscultation bilaterally, abdomen soft, nontender, nondistended Results Labs 06/10/24 16:00 06/11/24 06:02 Labs: Laboratory Results - last 24 hr 06/10/24 06/10/24 06/10/24 16:00 16:10 16:59 WBC 7.33 RBC 5.47 Hgb 16.9 Hct 51.3 H MCV 94 MCH 30.9 MCHC 32.9 RDW 12.1 Plt Count 264 MPV 9.8 Immature Gran % 0.5 Neutrophils % 74.4 Lymphocytes % 17.6 Monocytes % 5.6 Eosinophils % 0.5 Basophils % 1.4 Nucleated RBC % 0.0 Absolute Neutrophils 5.45 Absolute Lymphocytes 1.29 Absolute Monocytes 0.41 Absolute Eosinophils 0.04 Absolute Basophils 0.10 VBG pH 7.21 L VBG pCO2 31 L VBG pO2 52 VBG HCO3 13 L VBG Total CO2 11 L VBG O2 Saturation 85 VBG Base Excess -15 L Sodium 138 Potassium 4.4 Chloride 99 Carbon Dioxide 13.9 L Anion Gap 25.1 H BUN 17 Creatinine 1.2 Est GFR (CKD-EPI 2020) 81.89 Glucose 296 H Calcium 10.3 H Phosphorus 4.1 Magnesium 1.9 Cancelled Total Bilirubin 0.75 AST 14 L ALT 22 Alkaline Phosphatase 112 Total Protein 9.1 H Albumin 4.4 Lipase 16 Urine Color Yellow Urine Clarity Clear Urine pH 5.5 Ur Specific [place] >= 1.030 H Urine Protein Negative Urine Ketones >=160 H Urine Blood Negative Urine Nitrite Negative Urine Bilirubin Negative Urine Urobilinogen 0.2 Ur Leukocyte Esterase Negative Urine Glucose 500 H COVID-19 Source SARS-CoV-2 (PCR) Influenza Type A (PCR) Influenza Type B (PCR) RSV (PCR) Add-On Test Request DONE 06/10/24 06/10/24 06/10/24 17:20 18:04 18:30 WBC RBC Hgb Hct MCV MCH MCHC RDW Plt Count MPV Immature Gran % Neutrophils % Lymphocytes % Monocytes % Eosinophils % Basophils % Nucleated RBC % Absolute Neutrophils Absolute Lymphocytes Absolute Monocytes Absolute Eosinophils Absolute Basophils VBG pH 7.14 L* VBG pCO2 35 L VBG pO2 54 VBG HCO3 12 L VBG Total CO2 11 L VBG O2 Saturation 84 VBG Base Excess -17 L Sodium Cancelled Potassium Cancelled Chloride Cancelled Carbon Dioxide Cancelled Anion Gap Cancelled BUN Cancelled Creatinine Cancelled Est GFR (CKD-EPI 2020) Cancelled Glucose Cancelled Calcium Cancelled Phosphorus Magnesium Total Bilirubin AST ALT Alkaline Phosphatase Total Protein Albumin Lipase Urine Color Urine Clarity Urine pH Ur Specific [place] Urine Protein Urine Ketones Urine Blood Urine Nitrite Urine Bilirubin Urine Urobilinogen Ur Leukocyte Esterase Urine Glucose COVID-19 Source NASOPHARYNX SARS-CoV-2 (PCR) Negative Influenza Type A (PCR) Negative Influenza Type B (PCR) Negative RSV (PCR) Negative Add-On Test Request Last Vital Signs Temp 98.6 F 06/10/24 16:18 Pulse 121 H 06/10/24 16:18 Resp 18 06/10/24 16:18 BP 133/78 06/10/24 16:18 Pulse Ox 99 06/10/24 16:18 Time Spent Time spent with Patient: >75 minutes Time was spent: preparing to see the patient(eg.review tests), obtaining and/or reviewing separately otained hiistory, ordering medications,tests, procedures, referring, communicating with other health caretaker resort, indepentently interpreting results, counseling the patient and care coordination
[2024-06-10 18:30] LABS: Anion Gap 22.3 mmol/L (3-11); BUN 18 mg/dL (7-18); CO2 13.7 mmol/L (21.0-32.0); CREATININE 1.1 mg/dL (0.70-1.30); Calcium 9.4 mg/dL (8.5-10.1); Chloride 102 mmol/L (98-107); Glucose 265 mg/dL (74-106); Magnesium 1.7 mg/dL (1.8-2.4); Potassium 5.1 mmol/L (3.5-5.1); Sodium 138 mmol/L (136-145)
[2024-06-10] MEDS: Metoclopramide 10 MG/2 ML VIAL IVP (18:31)
[2024-06-10] MEDS: DEXTROSE 5%-0.45% SALINE 1,000 ML 150 ML IV (18:31)
[2024-06-10] MEDS: INSULIN REGULAR IN 0.9 % NACL 100 UNIT/100 ML BAG IVINF (18:31)
[2024-06-10] MEDS: diphenhydrAMINE 50 MG/ML VIAL 25 MG IVP (18:31)
[2024-06-10] MEDS: MAGNESIUM SULFATE 2 GM/50 ML BAG IV_INF (19:11)
--- NOTE | 2024-06-10 20:01 | W.PCEDHO ---
Registration Status: Primary Language: Preferred Language: ED Information & Data Chief Complaint Diabetes 06/10/24 16:18 Chief Complaint Diabetes 06/10/24 15:50 Triage Note patient here with IDDM and 06/10/24 15:24 high blood sugar readings. FS on arrival was 290 and rising. Patient's sensor was stating 308. patient very nauseous. was here last night with diabetic issues. Medical / Surgical History (Last Reviewed 05/09/24 @ 11:48 by Matthew Singh NP) Headache Abdominal symptoms Influenza A Diabetes mellitus (Last Reviewed 05/09/24 @ 11:48 by Matthew Singh NP) No pertinent past surgical history Most Recent Vital Signs Temperature 37 C 06/10/24 16:18 Temperature Source Oral 06/10/24 16:18 Pulse 121 H 06/10/24 16:18 Respiratory Rate 18 06/10/24 16:18 Respiratory Effort Normal, Non-Labored 06/10/24 16:18 Blood Pressure 133/78 06/10/24 16:18 Blood Pressure Position Sitting 06/10/24 16:18 Pulse Oximetry 99 06/10/24 16:18 Oxygen Delivery Method Room Air 06/10/24 16:18 Oxygen Flow Rate 0 06/10/24 15:24 Pain Level 0 06/10/24 16:18 Allergies shellfish derived Allergy (Severe, Verified 06/10/24 15:27) Throat Swelling Precautions Isolation Standard precaution 06/10/24 16:18 Active Medications Generic Name Dose Route Start Last Admin Trade Name Freq PRN Reason Stop Dose Admin Insulin Human Regular 100 unit in 100 mls @ 8 mls/hr 06/10/24 17:15 06/10/24 18:30 Myxredlin IVINF 0 unit/hr INFUSION JOLENE 0 mls/hr Titration Protocol 8 UNIT/HR Dextrose/Sodium Chloride 1,000 mls @ 150 mls/hr 06/10/24 17:59 06/10/24 18:31 Dextrose 5%-0.45% Ns IV 06/11/24 00:38 150 mls/hr INFUSION STA Administration Insulin Human Regular 100 unit in 100 mls @ 2 mls/hr 06/10/24 17:59 06/10/24 19:31 Myxredlin IVINF 06/12/24 19:58 5 unit/hr INFUSION STA 5 mls/hr Titration Protocol 2 UNIT/HR Magnesium Sulfate 2 gm in 50 mls @ 25 mls/hr 06/10/24 18:36 06/10/24 19:11 IV_INF 06/10/24 20:35 25 mls/hr NOW ONE Administration IV IV Catheter Type [] Saline Lock IV Catheter Type [Left Saline Lock Antecubital] IV Catheter Type [Right Saline Lock Antecubital] IV Catheter Gauge [] 20 IV Catheter Gauge [Left 18 Antecubital] IV Catheter Gauge [Right 18 Antecubital] Diagnostics 06/10/24 06/10/24 06/10/24 Range/Units 23:30 22:00 21:30 WBC (4.4-10.8) 10^3/uL RBC (4.36-5.78) 10^6/uL Hgb (13.5-17.5) g/dL Hct (40.0-50.0) % MCV (80-95) fL MCH (27.0-33.0) pg MCHC (32.0-36.0) % RDW (11.8-14.1) % Plt Count (130-400) 10^3/uL MPV (8.0-11.0) fL Immature Gran % % Neutrophils % % Lymphocytes % % Monocytes % % Eosinophils % % Basophils % % Nucleated RBC % (0.0-0.3) % Absolute Neutrophils (1.2-6.7) 10^3/uL Absolute Lymphocytes (1.2-3.4) 10^3/uL Absolute Monocytes (0.1-0.8) 10^3/uL Absolute Eosinophils (0.0-0.7) 10^3/uL Absolute Basophils (0.0-0.2) 10^3/uL VBG pH Pending Pending (7.31-7.41) VBG pCO2 Pending Pending (41-51) mmHg VBG pO2 Pending Pending mmHg VBG HCO3 Pending Pending (23-28) mmol/L VBG Total CO2 Pending Pending (24-29) mmol/L VBG O2 Saturation Pending Pending % VBG Base Excess Pending Pending (-2-3) mmol/L Sodium Pending (136-145) mmol/L Potassium Pending (3.5-5.1) mmol/L Chloride Pending (98-107) mmol/L Carbon Dioxide Pending (21.0-32.0) mmol/L Anion Gap Pending (3-11) mmol/L BUN Pending (7-18) mg/dL Creatinine Pending (0.70-1.30) mg/dL Est GFR (CKD-EPI 2020) Pending (mL/min/1.73m2) Glucose Pending (74-106) mg/dL Serum Osmolality Calcium Pending (8.5-10.1) mg/dL Phosphorus (2.6-4.7) mg/dL Magnesium Pending (1.8-2.4) mg/dL Total Bilirubin (0.2-1.0) mg/dL AST (15-37) U/L ALT (16-63) U/L Alkaline Phosphatase (46-116) U/L Total Protein (6.4-8.2) g/dL Albumin (3.4-5.0) g/dL Lipase (16-77) U/L Urine Color (Yellow) Urine Clarity (Clear) Urine pH (5-8) Ur Specific [place] (1.005-1.025) Urine Protein (Neg-Trace) mg/dL Urine Ketones (Negative) mg/dL Urine Blood (Negative) Urine Nitrite (Negative) Urine Bilirubin (Negative) Urine Urobilinogen (Up to 0.2) mg/dL Ur Leukocyte Esterase (Negative) Urine Glucose (Negative) mg/dL COVID-19 Source SARS-CoV-2 (PCR) (Negative) Influenza Type A (PCR) (Negative) Influenza Type B (PCR) (Negative) RSV (PCR) (Negative) Add-On Test Request 06/10/24 06/10/24 06/10/24 Range/Units 20:00 19:30 18:30 WBC (4.4-10.8) 10^3/uL RBC (4.36-5.78) 10^6/uL Hgb (13.5-17.5) g/dL Hct (40.0-50.0) % MCV (80-95) fL MCH (27.0-33.0) pg MCHC (32.0-36.0) % RDW (11.8-14.1) % Plt Count (130-400) 10^3/uL MPV (8.0-11.0) fL Immature Gran % % Neutrophils % % Lymphocytes % % Monocytes % % Eosinophils % % Basophils % % Nucleated RBC % (0.0-0.3) % Absolute Neutrophils (1.2-6.7) 10^3/uL Absolute Lymphocytes (1.2-3.4) 10^3/uL Absolute Monocytes (0.1-0.8) 10^3/uL Absolute Eosinophils (0.0-0.7) 10^3/uL Absolute Basophils (0.0-0.2) 10^3/uL VBG pH Pending (7.31-7.41) VBG pCO2 Pending (41-51) mmHg VBG pO2 Pending mmHg VBG HCO3 Pending (23-28) mmol/L VBG Total CO2 Pending (24-29) mmol/L VBG O2 Saturation Pending % VBG Base Excess Pending (-2-3) mmol/L Sodium Pending Cancelled (136-145) mmol/L Potassium Pending Cancelled (3.5-5.1) mmol/L Chloride Pending Cancelled (98-107) mmol/L Carbon Dioxide Pending Cancelled (21.0-32.0) mmol/L Anion Gap Pending Cancelled (3-11) mmol/L BUN Pending Cancelled (7-18) mg/dL Creatinine Pending Cancelled (0.70-1.30) mg/dL Est GFR (CKD-EPI 2020) Pending Cancelled (mL/min/1.73m2) Glucose Pending Cancelled (74-106) mg/dL Serum Osmolality Calcium Pending Cancelled (8.5-10.1) mg/dL Phosphorus (2.6-4.7) mg/dL Magnesium Pending (1.8-2.4) mg/dL Total Bilirubin (0.2-1.0) mg/dL AST (15-37) U/L ALT (16-63) U/L Alkaline Phosphatase (46-116) U/L Total Protein (6.4-8.2) g/dL Albumin (3.4-5.0) g/dL Lipase (16-77) U/L Urine Color (Yellow) Urine Clarity (Clear) Urine pH (5-8) Ur Specific [place] (1.005-1.025) Urine Protein (Neg-Trace) mg/dL Urine Ketones (Negative) mg/dL Urine Blood (Negative) Urine Nitrite (Negative) Urine Bilirubin (Negative) Urine Urobilinogen (Up to 0.2) mg/dL Ur Leukocyte Esterase (Negative) Urine Glucose (Negative) mg/dL COVID-19 Source SARS-CoV-2 (PCR) (Negative) Influenza Type A (PCR) (Negative) Influenza Type B (PCR) (Negative) RSV (PCR) (Negative) Add-On Test Request 06/10/24 06/10/24 06/10/24 Range/Units 18:04 17:20 16:59 WBC (4.4-10.8) 10^3/uL RBC (4.36-5.78) 10^6/uL Hgb (13.5-17.5) g/dL Hct (40.0-50.0) % MCV (80-95) fL MCH (27.0-33.0) pg MCHC (32.0-36.0) % RDW (11.8-14.1) % Plt Count (130-400) 10^3/uL MPV (8.0-11.0) fL Immature Gran % % Neutrophils % % Lymphocytes % % Monocytes % % Eosinophils % % Basophils % % Nucleated RBC % (0.0-0.3) % Absolute Neutrophils (1.2-6.7) 10^3/uL Absolute Lymphocytes (1.2-3.4) 10^3/uL Absolute Monocytes (0.1-0.8) 10^3/uL Absolute Eosinophils (0.0-0.7) 10^3/uL Absolute Basophils (0.0-0.2) 10^3/uL VBG pH 7.14 L* (7.31-7.41) VBG pCO2 35 L (41-51) mmHg VBG pO2 54 mmHg VBG HCO3 12 L (23-28) mmol/L VBG Total CO2 11 L (24-29) mmol/L VBG O2 Saturation 84 % VBG Base Excess -17 L (-2-3) mmol/L Sodium 138 (136-145) mmol/L Potassium 5.1 (3.5-5.1) mmol/L Chloride 102 (98-107) mmol/L Carbon Dioxide 13.7 L (21.0-32.0) mmol/L Anion Gap 22.3 H (3-11) mmol/L BUN 18 (7-18) mg/dL Creatinine 1.1 (0.70-1.30) mg/dL Est GFR (CKD-EPI 2020) 90.90 (mL/min/1.73m2) Glucose 265 H (74-106) mg/dL Serum Osmolality Calcium 9.4 (8.5-10.1) mg/dL Phosphorus (2.6-4.7) mg/dL Magnesium 1.7 L Cancelled (1.8-2.4) mg/dL Total Bilirubin (0.2-1.0) mg/dL AST (15-37) U/L ALT (16-63) U/L Alkaline Phosphatase (46-116) U/L Total Protein (6.4-8.2) g/dL Albumin (3.4-5.0) g/dL Lipase (16-77) U/L Urine Color (Yellow) Urine Clarity (Clear) Urine pH (5-8) Ur Specific [place] (1.005-1.025) Urine Protein (Neg-Trace) mg/dL Urine Ketones (Negative) mg/dL Urine Blood (Negative) Urine Nitrite (Negative) Urine Bilirubin (Negative) Urine Urobilinogen (Up to 0.2) mg/dL Ur Leukocyte Esterase (Negative) Urine Glucose (Negative) mg/dL COVID-19 Source NASOPHARYNX SARS-CoV-2 (PCR) Negative (Negative) Influenza Type A (PCR) Negative (Negative) Influenza Type B (PCR) Negative (Negative) RSV (PCR) Negative (Negative) Add-On Test Request 06/10/24 06/10/24 Range/Units 16:10 16:00 WBC 7.33 (4.4-10.8) 10^3/uL RBC 5.47 (4.36-5.78) 10^6/uL Hgb 16.9 (13.5-17.5) g/dL Hct 51.3 H (40.0-50.0) % MCV 94 (80-95) fL MCH 30.9 (27.0-33.0) pg MCHC 32.9 (32.0-36.0) % RDW 12.1 (11.8-14.1) % Plt Count 264 (130-400) 10^3/uL MPV 9.8 (8.0-11.0) fL Immature Gran % 0.5 % Neutrophils % 74.4 % Lymphocytes % 17.6 % Monocytes % 5.6 % Eosinophils % 0.5 % Basophils % 1.4 % Nucleated RBC % 0.0 (0.0-0.3) % Absolute Neutrophils 5.45 (1.2-6.7) 10^3/uL Absolute Lymphocytes 1.29 (1.2-3.4) 10^3/uL Absolute Monocytes 0.41 (0.1-0.8) 10^3/uL Absolute Eosinophils 0.04 (0.0-0.7) 10^3/uL Absolute Basophils 0.10 (0.0-0.2) 10^3/uL VBG pH 7.21 L (7.31-7.41) VBG pCO2 31 L (41-51) mmHg VBG pO2 52 mmHg VBG HCO3 13 L (23-28) mmol/L VBG Total CO2 11 L (24-29) mmol/L VBG O2 Saturation 85 % VBG Base Excess -15 L (-2-3) mmol/L Sodium 138 (136-145) mmol/L Potassium 4.4 (3.5-5.1) mmol/L Chloride 99 (98-107) mmol/L Carbon Dioxide 13.9 L (21.0-32.0) mmol/L Anion Gap 25.1 H (3-11) mmol/L BUN 17 (7-18) mg/dL Creatinine 1.2 (0.70-1.30) mg/dL Est GFR (CKD-EPI 2020) 81.89 (mL/min/1.73m2) Glucose 296 H (74-106) mg/dL Serum Osmolality Pending Calcium 10.3 H (8.5-10.1) mg/dL Phosphorus 4.1 (2.6-4.7) mg/dL Magnesium 1.9 (1.8-2.4) mg/dL Total Bilirubin 0.75 (0.2-1.0) mg/dL AST 14 L (15-37) U/L ALT 22 (16-63) U/L Alkaline Phosphatase 112 (46-116) U/L Total Protein 9.1 H (6.4-8.2) g/dL Albumin 4.4 (3.4-5.0) g/dL Lipase 16 (16-77) U/L Urine Color Yellow (Yellow) Urine Clarity Clear (Clear) Urine pH 5.5 (5-8) Ur Specific [place] >= 1.030 H (1.005-1.025) Urine Protein Negative (Neg-Trace) mg/dL Urine Ketones >=160 H (Negative) mg/dL Urine Blood Negative (Negative) Urine Nitrite Negative (Negative) Urine Bilirubin Negative (Negative) Urine Urobilinogen 0.2 (Up to 0.2) mg/dL Ur Leukocyte Esterase Negative (Negative) Urine Glucose 500 H (Negative) mg/dL COVID-19 Source SARS-CoV-2 (PCR) (Negative) Influenza Type A (PCR) (Negative) Influenza Type B (PCR) (Negative) RSV (PCR) (Negative) Add-On Test Request DONE [id number] Documentation Fingerstick Glucose Start: 06/10/24 15:24 Freq: Status: Complete Protocol: Activity Type Activity Date Activity User E-sign Co-sign Detail Recorded Client Recorded Date Recorded By Document 06/10/24 15:24 BKG DAEMON(10) [id number] 06/10/24 15:24 BKG DAEMON(10) Fingerstick Glucose Start: 06/10/24 17:11 Freq: .Q1H Status: Active Protocol: Activity Type Activity Date Activity User E-sign Co-sign Detail Recorded Client Recorded Date Recorded By Document 06/10/24 19:29 BKG DAEMON(10) [id number] 06/10/24 19:30 BKG DAEMON(10) Intake and Output - 24 Hour Total 06/10/24 15:14 thru 06/10/24 19:31 Intake Total 1090.467 Balance 1090.467 Weight 72.575 kg Intake: IV 1090.467 Falls Risk Assessment Contributing Factors No Factors 06/10/24 16:18 Ambulatory Aids Independent 06/10/24 16:18 Tubes/Lines None 06/10/24 16:18 Gait Evaluation No gait disturbance 06/10/24 16:18 Cognition No cognitive impairment 06/10/24 16:18 Fall Total Score 0 06/10/24 16:18 Level of Risk Standard/Low Risk 06/10/24 16:18 Problems (Last Reviewed 05/09/24 @ 11:48 by Matthew Singh NP) DKA (diabetic ketoacidosis) (Acute) Diabetes mellitus type 1.5 (Acute) DKA (diabetic ketoacidosis) (Acute) v v v v v v v v v Sending and/or Receiving Nurses: Please use comment section below to note any information pertinent to the patient hand-off not included above. Information / Comments: No questions after report Report received from:Raysa Boles RN at 1952
[2024-06-10 20:17] LABS: BE (Venous) -16 mmol/L (-2-3); HCO3 (Venous) 13 mmol/L (23-28); O2 Sat (Venous) 74 %; TCO2 (Venous) 12 mmol/L (24-29); pCO2 (Venous) 37 mmHg (41-51); pO2 (Venous) 43 mmHg
[2024-06-10 20:19] LABS: pH (Venous) 7.15 (7.31-7.41)
--- NOTE | 2024-06-10 21:07 | NUR.NOTE ---
Nursing Note: was in pt room every 30 minutes for BS, adjustment to insulin, and lab draws
[2024-06-10 21:26] LABS: Anion Gap 17.1 mmol/L (3-11); BUN 16 mg/dL (7-18); CO2 16.9 mmol/L (21.0-32.0); CREATININE 1.2 mg/dL (0.70-1.30); Calcium 9.2 mg/dL (8.5-10.1); Chloride 104 mmol/L (98-107); Estimated GFR 81.89 (mL/min/1.73m2); Glucose 249 mg/dL (74-106); Magnesium 2.7 mg/dL (1.8-2.4); Potassium 4.8 mmol/L (3.5-5.1); Sodium 138 mmol/L (136-145)
[2024-06-10] MEDS: POTASSIUM CHLORIDE/D5-0.45NACL 1,000 ML 150 MEQ IV (22:01)
[2024-06-10 22:08] LABS: BE (Venous) -12 mmol/L (-2-3); HCO3 (Venous) 16 mmol/L (23-28); O2 Sat (Venous) 88 %; TCO2 (Venous) 14 mmol/L (24-29); pCO2 (Venous) 37 mmHg (41-51); pH (Venous) 7.23 (7.31-7.41); pO2 (Venous) 54 mmHg
[2024-06-10 22:19] LABS: Anion Gap 16.4 mmol/L (3-11); BUN 16 mg/dL (7-18); CO2 17.6 mmol/L (21.0-32.0); CREATININE 1.1 mg/dL (0.70-1.30); Calcium 9.1 mg/dL (8.5-10.1); Chloride 105 mmol/L (98-107); Glucose 223 mg/dL (74-106); Magnesium 2.2 mg/dL (1.8-2.4); Potassium 4.5 mmol/L (3.5-5.1); Sodium 139 mmol/L (136-145)
[2024-06-10] MEDS: Normal Saline Flush 10 ML SYR IVP (22:22)
[2024-06-10 23:55] LABS: BE (Venous) -8 mmol/L (-2-3); HCO3 (Venous) 18 mmol/L (23-28); O2 Sat (Venous) 99 %; TCO2 (Venous) 17 mmol/L (24-29); pCO2 (Venous) 36 mmHg (41-51); pH (Venous) 7.31 (7.31-7.41); pO2 (Venous) 96 mmHg
[2024-06-11] VITALS (48 sets, daily range): BP systolic 100–131; BP diastolic 59–78; PULSE 72–111; RESP 11–22; TEMP 36.8–37.3; O2SAT 96–100
[2024-06-11 00:07] LABS: Anion Gap 10.8 mmol/L (3-11); BUN 14 mg/dL (7-18); CO2 21.2 mmol/L (21.0-32.0); CREATININE 1.1 mg/dL (0.70-1.30); Calcium 8.8 mg/dL (8.5-10.1); Chloride 106 mmol/L (98-107); Glucose 178 mg/dL (74-106); Potassium 4.1 mmol/L (3.5-5.1); Sodium 138 mmol/L (136-145)
[2024-06-11 02:01] LABS: BE (Venous) -6 mmol/L (-2-3); HCO3 (Venous) 20 mmol/L (23-28); pCO2 (Venous) 35 mmHg (41-51); pH (Venous) 7.36 (7.31-7.41); pO2 (Venous) 122 mmHg
[2024-06-11 02:03] LABS: O2 Sat (Venous) > 99 %
[2024-06-11 02:15] LABS: Anion Gap 10.6 mmol/L (3-11); BUN 15 mg/dL (7-18); CO2 20.4 mmol/L (21.0-32.0); Calcium 8.9 mg/dL (8.5-10.1); Chloride 108 mmol/L (98-107); Estimated GFR 101.92 (mL/min/1.73m2); Glucose 105 mg/dL (74-106); Potassium 4.1 mmol/L (3.5-5.1); Sodium 139 mmol/L (136-145)
[2024-06-11] MEDS: Normal Saline Flush 10 ML SYR IVP (03:37)
[2024-06-11 04:01] LABS: BE (Venous) -5 mmol/L (-2-3); HCO3 (Venous) 21 mmol/L (23-28); O2 Sat (Venous) 97 %; TCO2 (Venous) 19 mmol/L (24-29); pCO2 (Venous) 41 mmHg (41-51); pH (Venous) 7.32 (7.31-7.41); pO2 (Venous) 79 mmHg
[2024-06-11 04:48] LABS: Anion Gap 12.2 mmol/L (3-11); BUN 16 mg/dL (7-18); CO2 21.8 mmol/L (21.0-32.0); Chloride 107 mmol/L (98-107); Estimated GFR 101.92 (mL/min/1.73m2); Glucose 73 mg/dL (74-106); Potassium 3.8 mmol/L (3.5-5.1); Sodium 141 mmol/L (136-145)
[2024-06-11 06:14] LABS: BE (Venous) -11 mmol/L (-2-3); HCO3 (Venous) 15 mmol/L (23-28); pCO2 (Venous) 25 mmHg (41-51); pH (Venous) 7.37 (7.31-7.41); pO2 (Venous) 174 mmHg
[2024-06-11 06:16] LABS: O2 Sat (Venous) > 99 %
[2024-06-11 06:41] LABS: Anion Gap 18.2 mmol/L (3-11); BUN 16 mg/dL (7-18); CO2 13.8 mmol/L (21.0-32.0); CREATININE 0.9 mg/dL (0.70-1.30); Calcium 8.9 mg/dL (8.5-10.1); Chloride 105 mmol/L (98-107); Estimated GFR 115.65 (mL/min/1.73m2); Glucose 128 mg/dL (74-106); Potassium 4.4 mmol/L (3.5-5.1); Sodium 137 mmol/L (136-145)
--- NOTE | 2024-06-11 07:57 | PGE_ITS ---
Date of Service Date of service: 06/11/24 Time of Service: 07:57 Assessment and Plan Assessment and plan (1) DKA (diabetic ketoacidosis): Status: Acute Assessment and plan: Patient has responded well to insulin drip, being transitioned to SQ monitor Fingerstick glucose q 2h needs PCP follow up, good candidate for transdermal glucose monitoring if insurance would cover continue hydration (2) Diabetes mellitus type 1.5: Status: Acute Assessment and plan: - Patient has continuous blood glucose monitor which is apparently been reading high over the last few months with a A1c of 12 -Will manage DKA as noted above -Recommend close follow-up with PCP or endocrinology as patient appears to have difficulty with blood glucose management (3) Hypomagnesemia: Status: Acute Assessment and plan: replaced. continue to monitor Subjective Subjective Interval history since last seen: Clinical course reviewed including notes, orders, labs, vitals, meds, imaging, and cultures. Care is discussed with primary nurse. Patient is evaluated in intensive care unit. His case is discussed in detail with both the patient and his . He uses [employer] branded insulin and self pays for transdermal glucose monitoring system, freestyle una. Unfortunately, he is not well-controlled despite his best efforts with a hemoglobin A1c of 12.1. He requests help with assistance in applying for insurance through the marketplace. This is discussed with the showcase trimmer. He denies any chills fever nausea vomiting or diarrhea. He feels better now at this time than he did at the time of admission. His blood sugars are under much better control. His acidosis is corrected and his electrolytes are normalized. His insulin drip is shut off and he is switched to subcutaneous insulin at this time. Exam Narrative Exam Narrative: Patient is alert and oriented x 3 and in no acute distress HEENT: Neck supple, MM pink and moist, conjunctiva non-injected, sclera non- icteric, Pupils equal and reactive to light symmetrically, no JVD, no A waves. No thyromegaly. No carotid bruit CHEST: Bilaterally symmetrical with inspiration and expiration. No use of accessory muscles of respiration. No nasal flaring. RESP: Clear to auscultation bilaterally, no rales, rhonchi or wheeze, no pleural friction rub, no post-tussive crackles or apical rales. COR: RRR without murmur, normal S1, S2, no rub or gallop ABDOMEN: Soft, non tender diffusely, normally active bowel sounds diffusely, No hepatosplenomegaly, No abdominal bruit, no masses, no tenderness on deep abd ominal palpation. G/U: deferred Rectal: deferred MUSCULOSKELETAL: Bilaterally symmetrical, no muscle belly tenderness or mass DERMIS: Skin warm and dry, no ulcers or rashes, EXTREMITIES: No cyanosis, clubbing or edema, no gross deformities of the large or small joints of the upper or lower extremities. NEUROLOGICAL: Cranial nerves intact II-XII without notable deficit, No peripheral neurosensory or motor deficits noted. LYMPH: No anterior or posterior cervical, no supraclavicular, No axillary, no epitrochlear or femoral lymphadenopathy. Objective Last Vital Signs Temp 36.9 C 06/11/24 07:02 Pulse 78 06/11/24 07:01 Resp 13 06/11/24 07:30 BP 109/63 06/11/24 07:01 Pulse Ox 97 06/11/24 07:30 Laboratory Results - last 24 hr 06/10/24 06/10/24 06/10/24 16:00 16:10 16:59 WBC 7.33 RBC 5.47 Hgb 16.9 Hct 51.3 H MCV 94 MCH 30.9 MCHC 32.9 RDW 12.1 Plt Count 264 MPV 9.8 Immature Gran % 0.5 Neutrophils % 74.4 Lymphocytes % 17.6 Monocytes % 5.6 Eosinophils % 0.5 Basophils % 1.4 Nucleated RBC % 0.0 Absolute Neutrophils 5.45 Absolute Lymphocytes 1.29 Absolute Monocytes 0.41 Absolute Eosinophils 0.04 Absolute Basophils 0.10 VBG pH 7.21 L VBG pCO2 31 L VBG pO2 52 VBG HCO3 13 L VBG Total CO2 11 L VBG O2 Saturation 85 VBG Base Excess -15 L Sodium 138 Potassium 4.4 Chloride 99 Carbon Dioxide 13.9 L Anion Gap 25.1 H BUN 17 Creatinine 1.2 Est GFR (CKD-EPI 2020) 81.89 Glucose 296 H Calcium 10.3 H Phosphorus 4.1 Magnesium 1.9 Cancelled Total Bilirubin 0.75 AST 14 L ALT 22 Alkaline Phosphatase 112 Total Protein 9.1 H Albumin 4.4 Lipase 16 Urine Color Yellow Urine Clarity Clear Urine pH 5.5 Ur Specific [place] >= 1.030 H Urine Protein Negative Urine Ketones >=160 H Urine Blood Negative Urine Nitrite Negative Urine Bilirubin Negative Urine Urobilinogen 0.2 Ur Leukocyte Esterase Negative Urine Glucose 500 H COVID-19 Source SARS-CoV-2 (PCR) Influenza Type A (PCR) Influenza Type B (PCR) RSV (PCR) Add-On Test Request DONE 06/10/24 06/10/24 06/10/24 17:20 18:04 18:30 WBC RBC Hgb Hct MCV MCH MCHC RDW Plt Count MPV Immature Gran % Neutrophils % Lymphocytes % Monocytes % Eosinophils % Basophils % Nucleated RBC % Absolute Neutrophils Absolute Lymphocytes Absolute Monocytes Absolute Eosinophils Absolute Basophils VBG pH 7.14 L* VBG pCO2 35 L VBG pO2 54 VBG HCO3 12 L VBG Total CO2 11 L VBG O2 Saturation 84 VBG Base Excess -17 L Sodium 138 Cancelled Potassium 5.1 Cancelled Chloride 102 Cancelled Carbon Dioxide 13.7 L Cancelled Anion Gap 22.3 H Cancelled BUN 18 Cancelled Creatinine 1.1 Cancelled Est GFR (CKD-EPI 2020) 90.90 Cancelled Glucose 265 H Cancelled Calcium 9.4 Cancelled Phosphorus Magnesium 1.7 L Total Bilirubin AST ALT Alkaline Phosphatase Total Protein Albumin Lipase Urine Color Urine Clarity Urine pH Ur Specific [place] Urine Protein Urine Ketones Urine Blood Urine Nitrite Urine Bilirubin Urine Urobilinogen Ur Leukocyte Esterase Urine Glucose COVID-19 Source NASOPHARYNX SARS-CoV-2 (PCR) Negative Influenza Type A (PCR) Negative Influenza Type B (PCR) Negative RSV (PCR) Negative Add-On Test Request 06/10/24 06/10/24 06/10/24 20:03 20:27 20:55 WBC RBC Hgb Hct MCV MCH MCHC RDW Plt Count MPV Immature Gran % Neutrophils % Lymphocytes % Monocytes % Eosinophils % Basophils % Nucleated RBC % Absolute Neutrophils Absolute Lymphocytes Absolute Monocytes Absolute Eosinophils Absolute Basophils VBG pH 7.15 L* VBG pCO2 37 L VBG pO2 43 VBG HCO3 13 L VBG Total CO2 12 L VBG O2 Saturation 74 VBG Base Excess -16 L Sodium Cancelled Cancelled 138 Potassium Cancelled Cancelled 4.8 Chloride Cancelled Cancelled 104 Carbon Dioxide Cancelled Cancelled 16.9 L Anion Gap Cancelled Cancelled 17.1 H BUN Cancelled Cancelled 16 Creatinine Cancelled Cancelled 1.2 Est GFR (CKD-EPI 2020) Cancelled Cancelled 81.89 Glucose Cancelled Cancelled 249 H Calcium Cancelled Cancelled 9.2 Phosphorus Magnesium Cancelled 2.7 H Total Bilirubin AST ALT Alkaline Phosphatase Total Protein Albumin Lipase Urine Color Urine Clarity Urine pH Ur Specific [place] Urine Protein Urine Ketones Urine Blood Urine Nitrite Urine Bilirubin Urine Urobilinogen Ur Leukocyte Esterase Urine Glucose COVID-19 Source SARS-CoV-2 (PCR) Influenza Type A (PCR) Influenza Type B (PCR) RSV (PCR) Add-On Test Request 06/10/24 06/10/24 06/10/24 22:00 22:27 23:50 WBC RBC Hgb Hct MCV MCH MCHC RDW Plt Count MPV Immature Gran % Neutrophils % Lymphocytes % Monocytes % Eosinophils % Basophils % Nucleated RBC % Absolute Neutrophils Absolute Lymphocytes Absolute Monocytes Absolute Eosinophils Absolute Basophils VBG pH 7.23 L 7.31 VBG pCO2 37 L 36 L VBG pO2 54 96 VBG HCO3 16 L 18 L VBG Total CO2 14 L 17 L VBG O2 Saturation 88 99 VBG Base Excess -12 L -8 L Sodium 139 Cancelled 138 Potassium 4.5 Cancelled 4.1 Chloride 105 Cancelled 106 Carbon Dioxide 17.6 L Cancelled 21.2 Anion Gap 16.4 H Cancelled 10.8 BUN 16 Cancelled 14 Creatinine 1.1 Cancelled 1.1 Est GFR (CKD-EPI 2020) 90.90 Cancelled 90.90 Glucose 223 H Cancelled 178 H Calcium 9.1 Cancelled 8.8 Phosphorus Magnesium 2.2 Total Bilirubin AST ALT Alkaline Phosphatase Total Protein Albumin Lipase Urine Color Urine Clarity Urine pH Ur Specific [place] Urine Protein Urine Ketones Urine Blood Urine Nitrite Urine Bilirubin Urine Urobilinogen Ur Leukocyte Esterase Urine Glucose COVID-19 Source SARS-CoV-2 (PCR) Influenza Type A (PCR) Influenza Type B (PCR) RSV (PCR) Add-On Test Request 06/11/24 06/11/24 06/11/24 01:55 03:56 06:02 WBC RBC Hgb Hct MCV MCH MCHC RDW Plt Count MPV Immature Gran % Neutrophils % Lymphocytes % Monocytes % Eosinophils % Basophils % Nucleated RBC % Absolute Neutrophils Absolute Lymphocytes Absolute Monocytes Absolute Eosinophils Absolute Basophils VBG pH 7.36 7.32 7.37 VBG pCO2 35 L 41 25 L VBG pO2 122 79 174 VBG HCO3 20 L 21 L 15 L VBG Total CO2 19 L VBG O2 Saturation > 99 97 > 99 VBG Base Excess -6 L -5 L -11 L Sodium 139 141 137 Potassium 4.1 3.8 4.4 Chloride 108 H 107 105 Carbon Dioxide 20.4 L 21.8 13.8 L Anion Gap 10.6 12.2 H 18.2 H BUN 15 16 16 Creatinine 1.0 1.0 0.9 Est GFR (CKD-EPI 2020) 101.92 101.92 115.65 Glucose 105 73 L 128 H Calcium 8.9 9.0 8.9 Phosphorus Magnesium Total Bilirubin AST ALT Alkaline Phosphatase Total Protein Albumin Lipase Urine Color Urine Clarity Urine pH Ur Specific [place] Urine Protein Urine Ketones Urine Blood Urine Nitrite Urine Bilirubin Urine Urobilinogen Ur Leukocyte Esterase Urine Glucose COVID-19 Source SARS-CoV-2 (PCR) Influenza Type A (PCR) Influenza Type B (PCR) RSV (PCR) Add-On Test Request Time Spent with Patient Time Spent with Patient: 35-49 minutes Time was spent: preparing to see the patient(eg.review tests), obtaining and/or reviewing separately otained hiistory, ordering medications,tests, procedures, referring, communicating with other health child care specialist, indepentently interpreting results, counseling the patient and care coordination
[2024-06-11] MEDS: Insulin Aspart 300 UNITS/3 ML PEN SC ×3 (08:03→17:15)
[2024-06-11] MEDS: Insulin NPH-Human 300 UNITS/3 ML PEN 20 UNIT SC ×2 (08:30→17:17)
--- NOTE | 2024-06-11 08:43 | INITIAL_ITS ---
Date of service: 06/11/24 Time of Service: 08:43 Care Management Initial Assmt Initial Assessment Reason for Hospitalization: diabetic ketoacidosis Functional Status/Living Situation Patient Presentation: Sung was lying in bed visiting with his when CM met with him. His primary concern for CM is that he does not have health insurance because. He works locally and the insurance offered by his employer is too expensive and has a very high deductible. Sung has chronic health issues and a large out of pocket medical expense for his insulin and una monitor. Pt agrees to a BRITTNEY referral to review eligibility for Medicaid and financial assistance. Town of Residence: [place] Resides with: Spouse Employment Status: Employed Instrumental Activities of Daily Living (ADLs): Independent Medications Medication Management: Issues/Barriers (Needs to start using name brand insulin. ) with Cost Physical Functioning/Mobility Assistive Device: None Advance Directives Advance Directives: Do you have an Advance Directive: N 02/25/14 19:29 AD On File at [facility]: N 02/25/14 19:29 Date Asked 06/10/24 06/10/24 15:32 AD Date Reviewed COLST On File at [facility] No 09/20/22 16:38 COLST Date Scanned Code Status Resuscitation Status Full Code Insurance Coverage/Financial Issues Insurance: none Financial Issues: unable to afford insurance offered by employer Care Team Visit Care Team Role Provider Type Matthew Singh NP Primary Care Provider NURSE PRACTITIONER Albina Moore Emergency Provider NURSE PRACTITIONER Ry Castillo MD Admit Provider [facility] STAFF PHYSICIAN Attending Provider Discharge Potential Discharge Needs: PCP F/U Appt Anticipated Barriers to Discharge: Medical Status Patient/Family Education Needs: Review discharge instructions, discuss Ask Me Three Transportation: Private vehicle Plan: Discharge home via private vehicle with . Follow up with PCP and discharge plan of care as instructed. RBITTNEY referral for assistance with healthcare coverage. No new services are anticipated. CM will follow. PFSH All Active Problems (Updated 06/11/24 @ 08:01 by Deric Mars DO) Hypomagnesemia (Acute) DKA (diabetic ketoacidosis) (Acute) Diabetes mellitus type 1.5 (Acute) DKA (diabetic ketoacidosis) (Acute) Fracture of fifth metacarpal bone of right hand (Acute 04/28/23) Shortness of breath (Acute) Shoulder pain, left (Acute) Low back strain (Acute) Loose stools (Acute) Anxiety (Chronic) Annual physical exam (Acute) Diabetes mellitus (Chronic) Medical History Headache Abdominal symptoms Influenza A Diabetes mellitus Surgical History No pertinent past surgical history Family History Mother Asthma Depression Diabetes Heart disease Hypertension Father Seizures Sister Seizures Social History Smoking/Tobacco Use Status: Never Tobacco: How many years used: 6 Second Hand Exposure: Yes Smoking risk assessment performed?: Yes Alcohol Intake: never Drug use: Rarely Substance use type: does not use Caregiver/Support person: No Household members: spouse Housing: house Communication Needs: None Do you need help understanding health information?: Never Pets and animals: Yes Pets and animals: cat(s) Sexually active: Yes Do you think of yourself as: straight/heterosexual Current gender identity: male What is your relationship status?: How often do you talk on the phone with friends or family?: once per week How often do you get together with friends or relatives?: once per week How often do you attend orthodoxy or uatsdin services?: decline to answer Do you belong to any clubs or organized social groups?: no Panel score (0-1 are the most socially isolated patients): 1 What type of physical activity do you participate in: walking Duration: other Frequency: daily Louise/Mormonism: Baptism Seatbelt use: always Drive intox or ride w/intox straight truck driver: No Do you feel safe at home: Yes Do you feel safe in your relationship?: Yes SDOH(Care Management) Screening Will the Patient Participate in the Screening?: Yes Do you worry about having a steady place to live?: no Problems where you live: no known problems In the past 12 months, have you had to go without electric, gas, oil or water in your home?: no Have you or anyone in your house had to go without enough food to eat?: no Has lack of transportation kept you from medical appointments or from doing things needed for daily living?: no Has anyone in your support network made you feel unsafe for any reason?: no
[2024-06-11 09:08] LABS: Anion Gap 15.7 mmol/L (3-11); BUN 15 mg/dL (7-18); CO2 18.3 mmol/L (21.0-32.0); Calcium 9.2 mg/dL (8.5-10.1); Chloride 105 mmol/L (98-107); Estimated GFR 101.92 (mL/min/1.73m2); Glucose 152 mg/dL (74-106); Potassium 4.5 mmol/L (3.5-5.1); Sodium 139 mmol/L (136-145)
[2024-06-11 10:39] LABS: BUN 15 mg/dL (7-18); CREATININE 1.1 mg/dL (0.70-1.30); Chloride 101 mmol/L (98-107); Glucose 292 mg/dL (74-106); Potassium 4.6 mmol/L (3.5-5.1); Sodium 137 mmol/L (136-145)
--- NOTE | 2024-06-11 17:56 | W.PC.ACHO ---
Registration Status: Primary Language: Preferred Language: ED Information & Data Chief Complaint Diabetes 06/10/24 16:18 Chief Complaint Diabetes 06/10/24 15:50 Triage Note patient here with IDDM and 06/10/24 15:24 high blood sugar readings. FS on arrival was 290 and rising. Patient's sensor was stating 308. patient very nauseous. was here last night with diabetic issues. Medical / Surgical History (Last Reviewed 05/09/24 @ 11:48 by Matthew Singh NP) Headache Abdominal symptoms Influenza A Diabetes mellitus (Last Reviewed 05/09/24 @ 11:48 by Matthew Singh NP) No pertinent past surgical history Most Recent Vital Signs Temperature 37.3 C 06/11/24 15:31 Temperature Source Temporal Artery Scan 06/11/24 15:31 Pulse 85 06/11/24 15:01 Pulse 92 H 06/11/24 15:30 Respiratory Rate 18 06/11/24 15:30 Respiratory Effort Normal, Non-Labored 06/10/24 20:25 Respiratory Depth Normal 06/10/24 20:25 Respiratory Pattern Normal 06/10/24 20:25 Blood Pressure 109/71 06/11/24 15:01 Blood Pressure Mean 82 06/11/24 15:01 Blood Pressure Position Sitting 06/10/24 16:18 Pulse Oximetry 97 06/11/24 15:30 Oxygen Delivery Method Room Air 06/10/24 20:25 Oxygen Flow Rate 0 06/10/24 20:25 Pain Level 0 06/11/24 15:31 Allergies shellfish derived Allergy (Severe, Verified 06/10/24 15:27) Throat Swelling Precautions Isolation Standard precaution 06/10/24 16:18 Active Medications Generic Name Dose Route Start Last Admin Trade Name Freq PRN Reason Stop Dose Admin Potassium Chloride/Sodium Chloride 1,000 mls @ 150 mls/hr 06/10/24 22:00 06/11/24 13:30 Kcl 20meq/D5-0.45% Nacl IV Infused [facility] Infusion Insulin Aspart 0 units 06/11/24 08:00 06/11/24 17:15 Insulin Aspart 300 Units/3 Ml Pen SC 4 unit 0800,1200,1700 JOLENE Administration Protocol Insulin Human NPH 20 unit 06/11/24 07:30 06/11/24 17:17 Insulin Nph-Human 300 Units/3 Ml Pen SC 20 unit BID@0730,1630 JOLENE Administration Sodium Chloride 0 ml 06/10/24 22:22 06/11/24 03:37 Normal Saline Flush 10 Ml Syr IVP 30 ml PRN PRN Administration IV IV Catheter Type [Left Wrist] Saline Lock IV Catheter Type [Left Saline Lock Antecubital] IV Catheter Type [Right Saline Lock Antecubital] IV Catheter Gauge [Left Wrist] 20 IV Catheter Gauge [Left 18 Antecubital] IV Catheter Gauge [Right 18 Antecubital] Diagnostics 06/11/24 06/11/24 06/11/24 Range/Units 10:00 08:00 06:02 VBG pH 7.37 (7.31-7.41) VBG pCO2 25 L (41-51) mmHg VBG pO2 174 mmHg VBG HCO3 15 L (23-28) mmol/L VBG Total CO2 (24-29) mmol/L VBG O2 Saturation > 99 % VBG Base Excess -11 L (-2-3) mmol/L Sodium 137 139 137 (136-145) mmol/L Potassium 4.6 4.5 4.4 (3.5-5.1) mmol/L Chloride 101 105 105 (98-107) mmol/L Carbon Dioxide 16.0 L 18.3 L 13.8 L (21.0-32.0) mmol/L Anion Gap 20.0 H 15.7 H 18.2 H (3-11) mmol/L BUN 15 15 16 (7-18) mg/dL Creatinine 1.1 1.0 0.9 (0.70-1.30) mg/dL Est GFR (CKD-EPI 2020) 90.90 101.92 115.65 (mL/min/1.73m2) Glucose 292 H 152 H 128 H (74-106) mg/dL Calcium 9.0 9.2 8.9 (8.5-10.1) mg/dL Phosphorus (2.6-4.7) mg/dL Magnesium (1.8-2.4) mg/dL COVID-19 Source SARS-CoV-2 (PCR) (Negative) Influenza Type A (PCR) (Negative) Influenza Type B (PCR) (Negative) RSV (PCR) (Negative) 06/11/24 06/11/24 06/10/24 Range/Units 03:56 01:55 23:50 VBG pH 7.32 7.36 7.31 (7.31-7.41) VBG pCO2 41 35 L 36 L (41-51) mmHg VBG pO2 79 122 96 mmHg VBG HCO3 21 L 20 L 18 L (23-28) mmol/L VBG Total CO2 19 L 17 L (24-29) mmol/L VBG O2 Saturation 97 > 99 99 % VBG Base Excess -5 L -6 L -8 L (-2-3) mmol/L Sodium 141 139 138 (136-145) mmol/L Potassium 3.8 4.1 4.1 (3.5-5.1) mmol/L Chloride 107 108 H 106 (98-107) mmol/L Carbon Dioxide 21.8 20.4 L 21.2 (21.0-32.0) mmol/L Anion Gap 12.2 H 10.6 10.8 (3-11) mmol/L BUN 16 15 14 (7-18) mg/dL Creatinine 1.0 1.0 1.1 (0.70-1.30) mg/dL Est GFR (CKD-EPI 2020) 101.92 101.92 90.90 (mL/min/1.73m2) Glucose 73 L 105 178 H (74-106) mg/dL Calcium 9.0 8.9 8.8 (8.5-10.1) mg/dL Phosphorus (2.6-4.7) mg/dL Magnesium (1.8-2.4) mg/dL COVID-19 Source SARS-CoV-2 (PCR) (Negative) Influenza Type A (PCR) (Negative) Influenza Type B (PCR) (Negative) RSV (PCR) (Negative) 06/10/24 06/10/24 06/10/24 Range/Units 22:27 22:00 20:55 VBG pH 7.23 L (7.31-7.41) VBG pCO2 37 L (41-51) mmHg VBG pO2 54 mmHg VBG HCO3 16 L (23-28) mmol/L VBG Total CO2 14 L (24-29) mmol/L VBG O2 Saturation 88 % VBG Base Excess -12 L (-2-3) mmol/L Sodium Cancelled 139 138 (136-145) mmol/L Potassium Cancelled 4.5 4.8 (3.5-5.1) mmol/L Chloride Cancelled 105 104 (98-107) mmol/L Carbon Dioxide Cancelled 17.6 L 16.9 L (21.0-32.0) mmol/L Anion Gap Cancelled 16.4 H 17.1 H (3-11) mmol/L BUN Cancelled 16 16 (7-18) mg/dL Creatinine Cancelled 1.1 1.2 (0.70-1.30) mg/dL Est GFR (CKD-EPI 2020) Cancelled 90.90 81.89 (mL/min/1.73m2) Glucose Cancelled 223 H 249 H (74-106) mg/dL Calcium Cancelled 9.1 9.2 (8.5-10.1) mg/dL Phosphorus (2.6-4.7) mg/dL Magnesium 2.2 2.7 H (1.8-2.4) mg/dL COVID-19 Source SARS-CoV-2 (PCR) (Negative) Influenza Type A (PCR) (Negative) Influenza Type B (PCR) (Negative) RSV (PCR) (Negative) 06/10/24 06/10/24 06/10/24 Range/Units 20:27 20:03 18:30 VBG pH 7.15 L* (7.31-7.41) VBG pCO2 37 L (41-51) mmHg VBG pO2 43 mmHg VBG HCO3 13 L (23-28) mmol/L VBG Total CO2 12 L (24-29) mmol/L VBG O2 Saturation 74 % VBG Base Excess -16 L (-2-3) mmol/L Sodium Cancelled Cancelled Cancelled (136-145) mmol/L Potassium Cancelled Cancelled Cancelled (3.5-5.1) mmol/L Chloride Cancelled Cancelled Cancelled (98-107) mmol/L Carbon Dioxide Cancelled Cancelled Cancelled (21.0-32.0) mmol/L Anion Gap Cancelled Cancelled Cancelled (3-11) mmol/L BUN Cancelled Cancelled Cancelled (7-18) mg/dL Creatinine Cancelled Cancelled Cancelled (0.70-1.30) mg/dL Est GFR (CKD-EPI 2020) Cancelled Cancelled Cancelled (mL/min/1.73m2) Glucose Cancelled Cancelled Cancelled (74-106) mg/dL Calcium Cancelled Cancelled Cancelled (8.5-10.1) mg/dL Phosphorus (2.6-4.7) mg/dL Magnesium Cancelled (1.8-2.4) mg/dL COVID-19 Source SARS-CoV-2 (PCR) (Negative) Influenza Type A (PCR) (Negative) Influenza Type B (PCR) (Negative) RSV (PCR) (Negative) 06/10/24 06/10/24 06/10/24 Range/Units 18:04 17:20 16:10 VBG pH 7.14 L* (7.31-7.41) VBG pCO2 35 L (41-51) mmHg VBG pO2 54 mmHg VBG HCO3 12 L (23-28) mmol/L VBG Total CO2 11 L (24-29) mmol/L VBG O2 Saturation 84 % VBG Base Excess -17 L (-2-3) mmol/L Sodium 138 (136-145) mmol/L Potassium 5.1 (3.5-5.1) mmol/L Chloride 102 (98-107) mmol/L Carbon Dioxide 13.7 L (21.0-32.0) mmol/L Anion Gap 22.3 H (3-11) mmol/L BUN 18 (7-18) mg/dL Creatinine 1.1 (0.70-1.30) mg/dL Est GFR (CKD-EPI 2020) 90.90 (mL/min/1.73m2) Glucose 265 H (74-106) mg/dL Calcium 9.4 (8.5-10.1) mg/dL Phosphorus 4.1 (2.6-4.7) mg/dL Magnesium 1.7 L (1.8-2.4) mg/dL COVID-19 Source NASOPHARYNX SARS-CoV-2 (PCR) Negative (Negative) Influenza Type A (PCR) Negative (Negative) Influenza Type B (PCR) Negative (Negative) RSV (PCR) Negative (Negative) Ftelj-fh-Porm Documentation Fingerstick Glucose Start: 06/10/24 15:24 Freq: Status: Complete Protocol: Activity Type Activity Date Activity User E-sign Co-sign Detail Recorded Client Recorded Date Recorded By Document 06/10/24 15:24 CHACHO MAN [id number] 06/10/24 15:24 BKG DAEMON(2) Fingerstick Glucose Start: 06/10/24 17:11 Freq: .Q1H Status: Complete Protocol: Activity Type Activity Date Activity User E-sign Co-sign Detail Recorded Client Recorded Date Recorded By Document 06/11/24 06:23 BKG DAEMON(3) NVT-BG05 06/11/24 06:24 BKG DAEMON(4) Fingerstick Glucose Start: 06/11/24 06:47 Freq: AC & HS Status: Active Protocol: Activity Type Activity Date Activity User E-sign Co-sign Detail Recorded Client Recorded Date Recorded By Document 06/11/24 07:23 BKG DAEMON(5) NVT-BG05 06/11/24 07:24 BKG DAEMON(6) Fingerstick Glucose Start: 06/11/24 07:51 Freq: .Q2H Status: Complete Protocol: Activity Type Activity Date Activity User E-sign Co-sign Detail Recorded Client Recorded Date Recorded By Document 06/11/24 16:45 BKG DAEMON(7) NVT-BG05 06/11/24 16:45 BKG DAEMON(8) Intake and Output - 24 Hour Total 06/10/24 15:14 thru 06/11/24 17:53 Intake Total 2924.984 Output Total 3100 Balance -175.016 Weight 72.5 kg Intake: IV 2564.984 Oral 360 Output: Urine 3100 Other: Urine Color Pale Yellow Urine Appearance Clear Urine Odor Normal Falls Risk Assessment History of Falls No History 06/10/24 20:25 Contributing Factors No Factors 06/10/24 20:25 Ambulatory Aids Independent 06/10/24 20:25 Tubes/Lines W/no contributing factors 06/10/24 20:25 Gait Evaluation No gait disturbance 06/10/24 20:25 Cognition No cognitive impairment 06/10/24 20:25 Fall Total Score 10 06/10/24 20:25 Level of Risk Standard/Low Risk 06/10/24 20:25 Problems (Last Reviewed 05/09/24 @ 11:48 by Matthew Singh NP) Hypomagnesemia (Acute) DKA (diabetic ketoacidosis) (Acute) Diabetes mellitus type 1.5 (Acute) DKA (diabetic ketoacidosis) (Acute) Notes 06/10/24 21:07 Nursing Notes by Raysa Boles Nursing Note: was in pt room every 30 minutes for BS, adjustment to insulin, and lab draws Initialized on 06/10/24 21:07 - END OF NOTE v v v v v v v v v Sending and/or Receiving Nurses: Please use comment section below to note any information pertinent to the patient hand-off not included above. Information / Comments: Pt A&O x3 able to make needs known, no skin issues, NSR, Lung sounds clear, able to walk independently, uses the bathroom independently, continenent of bowel and bladder, last bm a couple of days ago. No fluids running, 18G LAC, 18G RAC, 20G left wrist. Report received from: [facility] ICU at 1730.
[2024-06-11 18:22] LABS: Osmolality Serum 303 mOsm/kg (275-295)
[2024-06-12 06:50] LABS: Anion Gap 16.4 mmol/L (3-11); BUN 16 mg/dL (7-18); CO2 21.6 mmol/L (21.0-32.0); Calcium 9.2 mg/dL (8.5-10.1); Chloride 102 mmol/L (98-107); Estimated GFR 101.92 (mL/min/1.73m2); Glucose 236 mg/dL (74-106); Potassium 3.8 mmol/L (3.5-5.1); Sodium 140 mmol/L (136-145)
[2024-06-12 07:41] VITALS: BP 124/76; PULSE 89; RESP 18; TEMP 36.8; O2SAT 98
[2024-06-12] MEDS: Insulin NPH-Human 300 UNITS/3 ML PEN 20 UNIT SC (07:50)
[2024-06-12] MEDS: Normal Saline Flush 10 ML SYR IVP (07:50)
[2024-06-12] MEDS: Insulin Aspart 300 UNITS/3 ML PEN SC ×2 (07:50→11:54)
--- NOTE | 2024-06-12 09:03 | PDOC.CMPRO ---
Date of service: 06/12/24 Time of Service: 09:03 SDOH(Care Management) Screening Will the Patient Participate in the Screening?: Yes Do you worry about having a steady place to live?: no Problems where you live: no known problems In the past 12 months, have you had to go without electric, gas, oil or water in your home?: no Have you or anyone in your house had to go without enough food to eat?: no Has lack of transportation kept you from medical appointments or from doing things needed for daily living?: no Has anyone in your support network made you feel unsafe for any reason?: no
--- NOTE | 2024-06-12 12:21 | PDOC.CMDIS ---
Date of service: 06/12/24 Time of Service: 12:21 LACE Index Scoring Tool Questions: Length of Stay (in days): 2 Was the patient admitted via the E.D.?: Yes Comorbidities: Diabetes w/o Complication (With Complications, Admitted with WILLIAM, ) E.D. Visits: 2 Answers: Total Score: 8 Risk of Readmission: Low Risk Care Management Discharge Plan Reason for Hospitalization: DKA Discharge Plan: Discharge home, return to work letter provided, follow up with PCP and discharge plan of care as instructed. Transportation is provided by . Follow up with BRITTNEY for support with Medicaid/Financial Assistance. No new services. Patient/Family Education Needs: Review discharge instructions, limitations, medications and plan to follow up with community providers. SDOH Health Related Social Needs: Health related social needs inadequate housing(Z59.1) Care Management Referrals: BRITTNEY (No insurance. Referral was placed prior to discharge. )
--- NOTE | 2024-06-12 14:28 | W.PM.DS.N ---
Date of service: 06/12/24 Time of Service: 14:28 DS: Diagnosis Discharge Diagnosis (1) DKA (diabetic ketoacidosis): Status: Acute Asessment and Plan: Resolved (2) Diabetes mellitus type 1.5: Status: Acute Asessment and Plan: Continues on insulin (3) Hypomagnesemia: Status: Acute Asessment and Plan: Resolved Discharge Plan Disposition Patient Disposition: Home Condition: Fair Discharge Details Reason For Visit: DKA Admit Date/Time: 06/10/24 18:22 Admit Provider: Deric Mars Attending Provider: Deric Mars [facility] Course: Patient was admitted on the day of admission with an anion gap diabetic ketoacidosis. He received aggressive intravenous hydration as well as insulin drip. Within 24 hours, his anion gap closed and he was able to be converted to subcutaneous insulin. He is continued on this since. Diabetic educators were involved. Patient has been using [employer] insulin apparently has not been well-controlled with a hemoglobin A1c of 12.1. Patient currently is not insured has been paying [id number] for his transdermal glucose monitoring equipment as well as his insulin. Referral is made to facility that can help him make application for medical insurance. At the time of discharge, the patient is reasonably well-controlled and without any symptoms of hyper or hypoglycemia. He is recommended to stay out of work for the remainder of the week, returning to work next Tuesday without restriction. Home Meds and New Rx's Prescriptions: New Humulin N NPH Insulin KwikPen 100 unit/mL (3 mL) Insulin Pen 20 unit subcut BID@0730,1630 Qty: 6 0RF insulin aspart U-100 100 unit/mL (3 mL) Insulin Pen 0 unit subcut 0800,1200,1700 Qty: 6 0RF (DME) pen needle, diabetic [BD Ultra-Fine Cassandra Pen Needle] 32 gauge x 5/32 needle See Rx Instructions .Route Qty: 100 0RF Rx Instructions: As directed Continued (DME) pen needle, diabetic [BD Ultra-Fine Mini Pen Needle] 31 gauge x 3/16 needle See Rx Instructions .Route Qty: 100 4RF Rx Instructions: Once daily insulin degludec [Tresiba FlexTouch U-200] 200 unit/mL (3 mL) insulin pen 60 unit subcut QHS MDD 80 units Qty: 9 6RF Rx Instructions: Inject 45 units subcutaneously once daily and titrate as directed. (DME) FreeStyle Kodi 3 Sensor Device See Rx Instructions .Route Qty: 1 12RF Rx Instructions: As directed Discontinued insulin NPH isoph U-100 human 100 unit/mL suspension 30 unit subcut BID No Action (DME) insulin syringe-needle U-100 0.3 mL 31 gauge x 1/4 syringe See Rx Instructions .ROUTE .MEDSUPPLY Qty: 100 4RF Rx Instructions: As directed (DME) FreeStyle Kodi 2 [place] Misc See Rx Instructions .Route Qty: 1 12RF Rx Instructions: As directed [place] for FreeStyle Kodi 3 Discharge Instructions Instructions: Diabetic Ketoacidosis (DC) Stand Alone Forms: Nursing Discharge Form Referrals: Matthew Lama NP [Primary Care Provider] - 06/20/24 10:20 am () Activity:: Off work until next [place] Equipment/Supplies:: Insulin and needles Diet:: Carb Counting Discharge Orders Discharge Orders: Discharge Order (Routine); Ordered 06/12/24 Ordered By: Deric Mars DS: Summary Time Spent with Patient providing and/or coordinating discharge services: Greater than 30 minutes Status at Discharge Functional status at discharge: independent ambulation Overall status at discharge: patient is back to baseline Mental Status: mental status grossly normal Speech and Movement: speech and movement normal Mood: congruent mood Affect: normal affect Quality:SDOH Health Related Social Needs: Health related social needs inadequate housing(Z59.1) Exam Narrative Exam Narrative: Patient is alert and oriented x 3 and in no acute distress, is at bedside HEENT: Neck supple, MM pink and moist, conjunctiva non-injected, sclera non-icteric, Pupils equal and reactive to light symmetrically, no JVD, no A waves. No thyromegaly. No carotid bruit CHEST: Bilaterally symmetrical with inspiration and expiration. No use of accessory muscles of respiration. No nasal flaring. RESP: Clear to auscultation bilaterally, no rales, rhonchi or wheeze, no pleural friction rub, no post-tussive crackles or apical rales. COR: RRR without murmur, normal S1, S2, no rub or gallop ABDOMEN: Soft, non tender diffusely, normally active bowel sounds diffusely, No hepatosplenomegaly, No abdominal bruit, no masses, no tenderness on deep abdominal palpation. G/U: deferred Rectal: deferred MUSCULOSKELETAL: Bilaterally symmetrical, no muscle belly tenderness or mass DERMIS: Skin warm and dry, no ulcers or rashes, EXTREMITIES: No cyanosis, clubbing or edema, no gross deformities of the large or small joints of the upper or lower extremities. NEUROLOGICAL: Cranial nerves intact II-XII without notable deficit, No peripheral neurosensory or motor deficits noted. LYMPH: No anterior or posterior cervical, no supraclavicular, No axillary, no epitrochlear or femoral lymphadenopathy. Psych Mental Status: mental status grossly normal Speech and Movement: speech and movement normal Mood: congruent mood Affect: normal affect DS: Data Vitals/I&O Vitals and I&O: Vital Signs Temperature 36.8 C 06/12/24 07:41 Temperature Source Temporal Artery Scan 06/12/24 07:41 Pulse 89 06/12/24 07:41 Pulse 88 06/11/24 17:30 Respiratory Rate 18 06/12/24 07:41 Respiratory Effort Normal, Non-Labored 06/10/24 20:25 Respiratory Depth Normal 06/10/24 20:25 Respiratory Pattern Normal 06/10/24 20:25 Blood Pressure 124/76 06/12/24 07:41 Blood Pressure Mean 83 06/11/24 17:01 Blood Pressure Position Sitting 06/10/24 16:18 Pulse Oximetry 98 06/12/24 07:41 Oxygen Delivery Method Room Air 06/12/24 07:41 Oxygen Flow Rate 0 06/12/24 07:41 Pain Level 0 06/11/24 15:31 Intake & Output 06/11/24 06/12/24 06/12/24 23:59 11:59 23:59 Intake Total 180 / 1227.100 240 / 240 Output Total 2100 / 3100 Balance -1920 / -1872.900 240 / 240 Intake: IV 0 / 867.100 Oral 180 / 360 240 / 240 Output: Urine 2100 / 3100 Other: Urine Color Pale Yellow Urine Appearance Clear Comment Self reported, ind to bathroom patient voids independently in room. Data Completed and Pending Labs on day of discharge: Labs from last 24 hours 06/12/24 06/10/24 05:48 16:00 Sodium 140 Potassium 3.8 Chloride 102 Carbon Dioxide 21.6 Anion Gap 16.4 H BUN 16 Creatinine 1.0 Est GFR (CKD-EPI 2020) 101.92 Glucose 236 H Serum Osmolality 303 H Calcium 9.2 PFSH All Active Problems Hypomagnesemia (Acute) DKA (diabetic ketoacidosis) (Acute) Diabetes mellitus type 1.5 (Acute) DKA (diabetic ketoacidosis) (Acute) Fracture of fifth metacarpal bone of right hand (Acute 04/28/23) Shortness of breath (Acute) Shoulder pain, left (Acute) Low back strain (Acute) Loose stools (Acute) Anxiety (Chronic) Annual physical exam (Acute) Diabetes mellitus (Chronic) Medical History Headache Abdominal symptoms Influenza A Diabetes mellitus Surgical History No pertinent past surgical history Family History Mother Asthma Depression Diabetes Heart disease Hypertension Father Seizures Sister Seizures Social History Smoking/Tobacco Use Status: Never Tobacco: How many years used: 6 Second Hand Exposure: Yes Smoking risk assessment performed?: Yes Alcohol Intake: never Drug use: Rarely Substance use type: does not use Caregiver/Support person: No Household members: spouse Housing: house Communication Needs: None Do you need help understanding health information?: Never Pets and animals: Yes Pets and animals: cat(s) Sexually active: Yes Do you think of yourself as: straight/heterosexual Current gender identity: male What is your relationship status?: How often do you talk on the phone with friends or family?: once per week How often do you get together with friends or relatives?: once per week How often do you attend orthodox or rastafari services?: decline to answer Do you belong to any clubs or organized social groups?: no Panel score (0-1 are the most socially isolated patients): 1 What type of physical activity do you participate in: walking Duration: other Frequency: daily Louise/Moravian: Mandaen Seatbelt use: always Drive intox or ride w/intox pedicab driver: No Do you feel safe at home: Yes Do you feel safe in your relationship?: Yes Time Spent with Patient Time Spent with Patient: <45 minutes Time was spent: preparing to see the patient(eg.review tests), obtaining and/or reviewing separately otained hiistory, ordering medications,tests, procedures, referring, communicating with other health family member caretaker, indepentently interpreting results, counseling the patient and care coordination
== END 2024-06-12 14:50 | disposition home or self-care (01) | DRG 639 ==
LOC: ER 19:50 → ICU 20:10 → MS 06-11 17:37
PROVIDERS: Family Medicine; Admitting Provider Internal Medicine; Emergency Provider Nurse Practitioner Family; PCP Nurse Practitioner Family; Visit Provider Internal Medicine
DX: E13.10 Other specified diabetes mellitus with ketoacidosis without coma (principal); E83.42 Hypomagnesemia; Z79.4 Long term (current) use of insulin; F41.9 Anxiety disorder, unspecified; M54.50 Low back pain, unspecified
CPT/HCPCS: 00123; 36415; 36416; 80048; 80053; 82805; 82962; 83690; 87637; 93005; 96361; 96365; 96366; 96367; 96375; 99285; 81003; 83735; 83930; 84100; 85025; 93010; 94760; 99223; 99232; 99239; J1200; J1815; J2405; J2765; J3475; J3480

== ENCOUNTER 2024-07-23 17:55 | Emergency (ER) | payer SELFPAY ==
[2024-07-23] VITALS (18 sets, daily range): BP systolic 114–144; BP diastolic 70–84; PULSE 79–109; RESP 9–19; TEMP 37.3; O2SAT 97–99
--- NOTE | 2024-07-23 18:00 | RT.EKG_ITS ---
APPROVED REPORT Exam: Resting ECG Reason for Exam: feeling unwell, h/o DKA Patient Location: E HR:97 bpm ECG Measurements Heart Rate 97 AXIS TX 155 P 76 QRSd 102 QRS 93 QT 343 T 56 QTc 438 Conclusion Sinus rhythm...normal P axis, V-rate 60- 99 ST elev, probable normal early repol pattern...ST elevation, age<55
--- NOTE | 2024-07-23 18:15 | ED.GENADUL_ITS ---
Discharge Plan Disposition Patient Disposition: Home Condition: Good Discharge Details Clinical Impression: Nausea Primary Care Provider: Matthew Lama ED Provider: Albina Ram Home Meds and New Rx's Prescriptions: Continued (DME) insulin syringe-needle U-100 0.3 mL 31 gauge x 1/4 syringe See Rx Instructions .ROUTE .MEDSUPPLY Qty: 100 4RF Rx Instructions: As directed insulin aspart U-100 100 unit/mL (3 mL) insulin pen See Rx Instructions subcut 0800,1200,1700 Qty: 15 11RF Rx Instructions: subcutaneously 0800,1200,1700; Per Sliding Scale: <140 - 0 units 141-180 - 1 unit 181-220 - 2 units 221-260 - 3 units 261-300 - 4 units 301-340 - 5 units (DME) FreeStyle Kodi 2 [place] Misc See Rx Instructions .Route Qty: 1 12RF Rx Instructions: As directed [place] for FreeStyle Kodi 3 insulin degludec [Tresiba FlexTouch U-200] 200 unit/mL (3 mL) insulin pen 60 unit subcut QHS MDD 80 units Qty: 9 6RF Rx Instructions: Inject 45 units subcutaneously once daily and titrate as directed. (DME) FreeStyle Kodi 3 Sensor Device See Rx Instructions .Route Qty: 1 12RF Rx Instructions: As directed (DME) BD AutoShield Duo Pen Needle 30 gauge x 3/16 needle See Rx Instructions .Route Qty: 100 12RF Rx Instructions: As directed Humulin N NPH Insulin KwikPen 100 unit/mL (3 mL) insulin pen 22 unit subcut BID@0730,1630 Qty: 15 0RF Discharge Instructions Additional Instructions: Your workup today was very reassuring. Please follow-up with Jae, pharmacist at [facility] to discuss management of your diabetes. I recommend having regular check ins with him to dial in your blood sugar control. Continue checking your blood sugars regularly. Use your sliding scale insulin as discussed. I recommend that you try famotidine 20 mg twice a day available [id number] for the next couple of days to see if that helps with your nausea/abdominal discomfort. Stay very well-hydrated, drinking plenty of fluids throughout the day. Gatorlyte zero or liquid IV sugar free is a good option Return to emergency care if you develop new signs of DKA, feel you are going to pass out, chest pains, severe abdominal pain, uncontrollable vomiting, or if you are very worried and need to be rechecked again immediately Referrals: Matthew Lama NP [Primary Care Provider] - [facility] General Date/Time Provider Initiated Documentation: 07/23/24 18:09 . [facility] Narrative: Sung is a 33year old male who presents to the emergency department today for evaluation of elevated BG, ketonuria and not feeling well. He reports that he was feeling fine all day yesterday, but then felt nauseated before bed. He checked his blood sugar and it was above 300; had some chills last night this morning he woke up and his stomach still felt a little bit off, but he was able to eat breakfast. Has been checking blood sugars throughout the day, had been above 250 consistently. Mild global headaches today only. Because he was worried he might be going into DKA he drank a whole bunch of water throughout the day, but still feels like his mouth is dry. This evening after dinner he developed new onset of nausea. He denies recent fever, dizziness, sore throat, ear pain, congestion, cough, chest pain, shortness of breath, abdominal pain, change in bowel or bladder function, or rashes. He does report that over the weekend he did not drink as much fluids as he should have. Denies any change of diet with recent , says that he watches his carbs carefully. 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 He is diligent about tracking his carbs and blood sugars/using insulin on sliding scale Physical exam remarkable for tacky mucous membranes with a white film on the tongue. No cervical or submandibular lymphadenopathy. PERRL, EOMs intact. Easy work of breathing, lung sounds clear bilaterally. Normal heart sounds. Abdomen soft, nondistended, nontender to palpation with normoactive bowel sounds. D/dx includes but is not limited to: DKA/HHS, occult infection such as UTI or pneumonia, dehydration, electrolyte imbalance, gastritis, PUD I independently interpreted the following tests: CBC, CMP, VBG, UA, and COVID/flu all negative. EKG reassuring, normal sinus rhythm rate 97, no changes consistent with acute ischemia. ST elevations consistent with normal early repolarization, unchanged from previous on 06/10/2024. Chest x-ray performed, no obvious infiltrates noted, this was confirmed by radiologist. While in the emergency department, Sung received 500 cc IV normal saline, p.o. fluids, famotidine, and Zofran. Vital signs normalized after p.o. and IV hydration, with resolution of tachycardia Overall workup today very reassuring. Most likely gastritis, especially as it improved with famotidine and Zofran. He was able to take fluids without difficulty. Reviewed discharge instructions with patient, including symptomatic management, importance of follow-up with Jae, pharmacist for discussion about diabetes management, and red flags indicating need for return to emergency care. He voices agreement with plan of care. Related Data Home Medications ?Medication ?Instructions ?Recorded ?Confirmed insulin syringe-needle U-100 0.3 #100 ea 08/27/20 07/23/24 mL 31 gauge x 1/4 flash glucose scanning reader #1 ea 11/12/22 07/23/24 (FreeStyle Kodi 2 [place]) blood-glucose sensor (FreeStyle #1 ea 06/04/24 07/23/24 Kodi 3 Sensor device) insulin degludec 200 unit/mL (3 60 unit (0.3 mL) subcut QHS #9 mL 06/04/24 07/23/24 mL) subcutaneous pen (Tresiba FlexTouch U-200 insulin) insulin aspart U-100 100 unit/mL See Rx Instructions subcut 06/20/24 07/23/24 (3 mL) subcutaneous pen 0800,1200,1700 #15 mL pen needle,diabetic dual safty 30 #100 ea 07/08/24 07/23/24 gauge x 3/16 (BD AutoShield Duo Pen Needle) insulin NPH isoph U-100 human 100 22 unit (0.22 mL) subcut 07/23/24 07/23/24 unit/mL (3 mL) subcutaneous pen BID@0730,1630 #15 mL (Humulin N NPH U-100 Insulin KwikPen) Previous Rx's ?Medication ?Instructions ?Recorded insulin syringe-needle U-100 0.3 #100 ea 08/27/20 mL 31 gauge x 1/4 flash glucose scanning reader #1 ea 11/12/22 (FreeStyle Kodi 2 [place]) blood-glucose sensor (FreeStyle #1 ea 06/04/24 Kodi 3 Sensor device) insulin degludec 200 unit/mL (3 60 unit (0.3 mL) subcut QHS #9 mL 06/04/24 mL) subcutaneous pen (Tresiba FlexTouch U-200 insulin) insulin aspart U-100 100 unit/mL See Rx Instructions subcut 06/20/24 (3 mL) subcutaneous pen 0800,1200,1700 #15 mL pen needle,diabetic dual safty 30 #100 ea 07/08/24 gauge x 3/16 (BD AutoShield Duo Pen Needle) insulin NPH isoph U-100 human 100 22 unit (0.22 mL) subcut 07/23/24 unit/mL (3 mL) subcutaneous pen BID@0730,1630 #15 mL (Humulin N NPH U-100 Insulin KwikPen) Allergies Allergy/AdvReac Type Severity Reaction Status Date / Time shellfish derived Allergy Severe Throat Verified 06/20/24 10:21 Swelling General Stated Complaint: GenMedical GEOFF: 3 Review of Systems Narrative: see HPI Exam Const General: cooperative, healthy appearing, comfortable, no acute distress and well developed Nutritional Appearance: average body habitus Orientation: alert and oriented x3 HENMT Ears: hearing grossly normal bilaterally General nose exam: external nose normal Mouth: moist mucous membranes abnormal (Tacky mucous membranes with white film on tongue) Throat: posterior oropharynx normal Neck Neck: normal visual inspection, full ROM and no lymphadenopathy Resp Effort & Inspection: normal respiratory effort and able to speak in complete sentences Auscultation: clear to auscultation bilaterally Cardio Rate: tachycardic Rhythm: regular rhythm GI Inspection: normal to inspection and non-distended Palpation: soft, not firm, no guarding and nontender Auscultation: normal bowel sounds Skin General skin exam: no rashes or lesions noted Extrem General: normal to inspection and normal gait Course Vital Signs Vital signs: Vital Signs Temperature 37.3 C 07/23/24 18:02 Pulse 109 H 07/23/24 18:02 Respiratory Rate 16 07/23/24 18:02 Blood Pressure 139/84 07/23/24 18:02 Temperature 37.3 C 07/23/24 18:11 Temperature Source Oral 07/23/24 18:11 Pulse 109 H 07/23/24 18:11 Respiratory Rate 16 07/23/24 18:11 Respiratory Effort Normal, Non-Labored 07/23/24 18:11 Blood Pressure 139/84 07/23/24 18:11 Blood Pressure Position Sitting 07/23/24 18:11 Oxygen Delivery Method Room Air 07/23/24 18:11 Oxygen Flow Rate 0 07/23/24 18:11 Pain Level 0 07/23/24 18:11 Medical Decision Making Imaging Data Radiologic Study: Radiologist's impression: PROCEDURE INFORMATION: Exam: XR Chest Exam date and time: 07/23/2024 19:53 Age: 33 years old Clinical indication: Other: R/O occult pna TECHNIQUE: Imaging protocol: Radiologic exam of the chest. Views: 2 views. COMPARISON: CR XR PORTABLE CHEST AP 09/20/2022 16:48 FINDINGS: Lungs: No consolidation. Pleural spaces: No pleural effusion. No pneumothorax. Heart/Mediastinum: No cardiomegaly. Bones/joints: No acute fracture. IMPRESSION: No acute cardiopulmonary pathology. Quality:SDOH Health Related Social Needs: Health related social needs inadequate housing(Z59.1) PFSH All Active Problems (Updated 07/23/24 @ 21:19 by Albina Moore) Nausea (Acute) Diabetes mellitus type 1.5 (Acute) Fracture of fifth metacarpal bone of right hand (Acute 04/28/23) Shortness of breath (Acute) Shoulder pain, left (Acute) Low back strain (Acute) Loose stools (Acute) Anxiety (Chronic) Annual physical exam (Acute) Medical History (Updated 07/23/24 @ 21:19 by Albina Moore) Diabetes mellitus Headache Abdominal symptoms Influenza A Diabetes mellitus Surgical History No pertinent past surgical history Family History Mother Asthma Depression Diabetes Heart disease Hypertension Father Seizures Sister Seizures Social History Smoking/Tobacco Use Status: Never Tobacco: How many years used: 6 Second Hand Exposure: Yes Smoking risk assessment performed?: Yes Alcohol Intake: never Drug use: Rarely Substance use type: does not use Caregiver/Support person: No Household members: spouse Housing: house Communication Needs: None Do you need help understanding health information?: Never Pets and animals: Yes Pets and animals: cat(s) Sexually active: Yes Do you think of yourself as: straight/heterosexual Current gender identity: male What is your relationship status?: How often do you talk on the phone with friends or family?: once per week How often do you get together with friends or relatives?: once per week How often do you attend hinduism or oriental orthodox services?: decline to answer Do you belong to any clubs or organized social groups?: no Panel score (0-1 are the most socially isolated patients): 1 What type of physical activity do you participate in: walking Duration: other Frequency: daily Louise/Temple: Rastafarian Seatbelt use: always 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
--- NOTE | 2024-07-23 18:30 | DI.RAD_ITS ---
Exam(s) XR CHEST 2V PA LATERAL EXAM: XR CHEST 2V PA LATERAL CLINICAL HISTORY: r/o occult PNA TECHNIQUE: 2D digital imaging was performed. Two views. COMPARISON: CR,XR XR PORTABLE CHEST AP from 09/20/2022 FINDINGS: HEART: Normal size. Aorta: Not dilated. PULMONARY VASCULATURE: Normal. MEDIASTINUM: Unremarkable. LUNGS: Clear. PLEURAL SPACE: No pleural effusion or pneumothorax. BONE:Unremarkable for age. SOFT TISSUES: Unremarkable. IMPRESSION: No acute abnormality. DATA REPOSITORY: RADIATION DOSE DELIVERED:
[2024-07-23 18:52] LABS: Abs Immature Grans 0.01 10^3/uL (0.0-0.06); Absolute Basophil Count 0.06 10^3/uL (0.0-0.2); Absolute Eosinophil Count 0.03 10^3/uL (0.0-0.7); Absolute Lymphocyte Count 0.96 10^3/uL (1.2-3.4); Absolute Monocyte Count 0.43 10^3/uL (0.1-0.8); Absolute Neutrophil Count 3.77 10^3/uL (1.2-6.7); Basophils % 1.1 %; Eosinophils % 0.6 %; HCT 42.9 % (40.0-50.0); HGB 14.5 g/dL (13.5-17.5); Immature Grans % 0.2 %; Lymphocytes % 18.3 %; MCHC 33.8 % (32.0-36.0); MCV 92 fL (80-95); MPV 9.4 fL (8.0-11.0); Monocytes % 8.2 %; Neutrophils % 71.6 %; Platelet Count 226 10^3/uL (130-400); RBC 4.67 10^6/uL (4.36-5.78); RDW 11.9 % (11.8-14.1); RDW-SD 40.5 fL; WBC 5.26 10^3/uL (4.4-10.8)
[2024-07-23 18:53] LABS: BE (Venous) 2 mmol/L (-2-3); HCO3 (Venous) 27 mmol/L (23-28); Lactate 0.9 mmol/L (0.6-1.4); O2 Sat (Venous) 68 %; TCO2 (Venous) 24 mmol/L (24-29); pCO2 (Venous) 45 mmHg (41-51); pH (Venous) 7.39 (7.31-7.41); pO2 (Venous) 34 mmHg
[2024-07-23 19:12] LABS: ALT 18 U/L (16-63); AST 8 U/L (15-37); Albumin 4.1 g/dL (3.4-5.0); Alkaline Phosphatase 102 U/L (46-116); Anion Gap 9.7 mmol/L (3-11); BUN 13 mg/dL (7-18); Bilirubin, Total 0.61 mg/dL (0.2-1.0); CO2 27.3 mmol/L (21.0-32.0); Calcium 9.1 mg/dL (8.5-10.1); Chloride 101 mmol/L (98-107); Estimated GFR 101.92 (mL/min/1.73m2); Glucose 339 mg/dL (74-106); Potassium 3.7 mmol/L (3.5-5.1); Sodium 138 mmol/L (136-145); Total Protein 7.7 g/dL (6.4-8.2)
[2024-07-23] MEDS: Ondansetron O.D.T. 4 MG TABEF PO (19:12)
[2024-07-23] MEDS: Normal Saline 500 ML 1000 ML IV (19:14)
[2024-07-23 20:08] LABS: Bilirubin Negative (Negative); Blood Negative (Negative); Clarity Clear (Clear); Glucose >=1000 mg/dL (Negative); Ketones 80 mg/dL (Negative); Leukocyte Esterase Negative (Negative); Nitrite Negative (Negative); Urobilinogen 0.2 mg/dL (Up to 0.2); pH 5.5 (5-8)
[2024-07-23 20:20] LABS: Bacteria Negative HPF (Negative); C & S Indicated? No; Casts Negative LPF (Negative); Crystals Negative HPF (Negative); Epithelial Cells Rare HPF (Negative); Mucus Negative (Negative); RBC Negative HPF (0-2); WBC Negative HPF (0-5)
--- NOTE | 2024-07-23 20:25 | DI.VRAD_ITS ---
PROCEDURE INFORMATION: Exam: XR Chest Exam date and time: 07/23/2024 19:53 Age: 33 years old Clinical indication: Other: R/O occult pna TECHNIQUE: Imaging protocol: Radiologic exam of the chest. Views: 2 views. COMPARISON: CR XR PORTABLE CHEST AP 09/20/2022 16:48 FINDINGS: Lungs: No consolidation. Pleural spaces: No pleural effusion. No pneumothorax. Heart/Mediastinum: No cardiomegaly. Bones/joints: No acute fracture. IMPRESSION: No acute cardiopulmonary pathology. Dictated and Authenticated by: Quin Sneed MD. Ordering:REINIER Montemayor MD
[2024-07-23] MEDS: Famotidine 20 MG TAB PO (20:27)
== END 2024-07-23 21:26 | disposition home or self-care (01) ==
PROVIDERS: Emergency Provider Nurse Practitioner Family; PCP Nurse Practitioner Family
DX: R11.0 Nausea (principal); E13.9 Other specified diabetes mellitus without complications; I10 Essential (primary) hypertension; Z79.4 Long term (current) use of insulin
CPT/HCPCS: 80053; 82805; 82962; 87426; 93005; 96360; 99285; 71046; 81003; 81015; 83605; 85025; 93010; 99284

== ENCOUNTER 2025-01-28 18:52 | Emergency (ER) | payer OTHER, SELFPAY ==
[2025-01-28 18:56] VITALS: BP 155/100; PULSE 78; RESP 20; TEMP 36.8; O2SAT 98
[2025-01-28 19:25] VITALS: RESP 16
--- NOTE | 2025-01-28 22:11 | ED.GENADUL_ITS ---
Discharge Plan Disposition Patient Disposition: Home Condition: Stable Discharge Details Clinical Impression: Lymph node enlargement, Anxiety about health Primary Care Provider: Matthew Lama ED Provider: Micah Bustillos Home Meds and New Rx's Prescriptions: No Action (DME) insulin syringe-needle U-100 0.3 mL 31 gauge x 1/4 syringe See Rx Instructions .ROUTE .MEDSUPPLY Qty: 100 4RF Rx Instructions: As directed glucagon HCl [Glucagon (HCl) Emergency Kit] 1 mg recon soln 1 mg subcut Q20M PRN (Reason: hypoglycemia) Qty: 1 0RF Rx Instructions: until target blood sugar attained insulin NPH isoph U-100 human 100 unit/mL (3 mL) insulin pen 35 unit subcut BID 30 Days Qty: 21 12RF Rx Instructions: Inject 35 units subcutaneously twice daily as directed. (DME) BD AutoShield Duo Pen Needle 30 gauge x 3/16 needle See Rx Instructions .Route Qty: 100 12RF Rx Instructions: As directed (DME) FreeStyle Kodi 3 Plus Sensor Device See Rx Instructions .Route Qty: 1 0RF Rx Instructions: As directed (DME) FreeStyle Kodi 3 Plus Sensor Device See Rx Instructions .Route Qty: 1 12RF Rx Instructions: Apply to rear tricep insulin lispro [Humalog Arpan KwikPen U-100] 100 unit/mL insulin pen, half- unit 10 unit subcut TID MDD 30 units 90 Days Qty: 30 4RF Rx Instructions: Inject 5-10 units subcutaneously three times daily with meals. Use 0.5 unit doses as needed. (DME) Dexcom G7 Flavoring Maker Misc See Rx Instructions .Route Qty: 1 0RF Rx Instructions: Use with Dexcom G7 sensors for blood glucose management (DME) Dexcom G7 Sensor Device See Rx Instructions .Route Qty: 3 12RF Rx Instructions: Dispense 3 sensors for 30d for the management of blood glucose Discharge Instructions Additional Instructions: The lump on the back of your head is likely lymph node that is slightly irritated. You have no signs of cancer or signs of an acute infection. I do not recommend cutting this area open or treating it with antibiotics. Warm compress might be helpful. Follow-up with your primary care doctor as needed. HPI General Date/Time Provider Initiated Documentation: 01/28/25 18:59 . Limitations to Documentation: no limitations . Information obtained by: patient . HPI Narrative: 4-year-old gentleman with past medical history of diabetes and anxiety about his health presents for evaluation of a bump he noticed on the back of his left side of his neck. He reports that he noticed this last night. He is very worried that it is cancer. It does not hurt. He states that it is not been draining or having any overlying skin problem. Related Data Home Medications ?Medication ?Instructions ?Recorded ?Confirmed insulin syringe-needle U-100 0.3 #100 ea 08/27/20 01/28/25 mL 31 gauge x 1/4 pen needle,diabetic dual safty 30 #100 ea 07/08/24 01/28/25 gauge x 3/16 (BD AutoShield Duo Pen Needle) blood-glucose sensor (FreeStyle #1 ea 07/27/24 01/28/25 Kodi 3 Plus Sensor device) blood-glucose sensor (FreeStyle #1 ea 08/15/24 01/28/25 Kodi 3 Plus Sensor device) glucagon HCl 1 mg solution for 1 mg subcut Q20M PRN hypoglycemia 08/27/24 01/28/25 injection (Glucagon (HCl) #1 ea Emergency Kit) blood-glucose sensor (Dexcom G7 #3 ea 09/17/24 01/28/25 Sensor device) blood-glucose,loader machine,cont #1 ea 09/17/24 01/28/25 (Dexcom G7 Flavoring Maker) insulin lispro 100 unit/mL 10 unit (0.1 mL) subcut TID 90 09/17/24 01/28/25 subcutaneous half-unit pen days #30 mL (Humalog Arpan KwikPen (U-100)) insulin NPH isoph U-100 human 100 35 unit (0.35 mL) subcut BID 30 11/29/24 01/28/25 unit/mL (3 mL) subcutaneous pen days #21 mL Previous Rx's ?Medication ?Instructions ?Recorded insulin syringe-needle U-100 0.3 #100 ea 08/27/20 mL 31 gauge x 1/4 pen needle,diabetic dual safty 30 #100 ea 07/08/24 gauge x 3/16 (BD AutoShield Duo Pen Needle) blood-glucose sensor (FreeStyle #1 ea 07/27/24 Kodi 3 Plus Sensor device) blood-glucose sensor (FreeStyle #1 ea 08/15/24 Kodi 3 Plus Sensor device) glucagon HCl 1 mg solution for 1 mg subcut Q20M PRN hypoglycemia 08/27/24 injection (Glucagon (HCl) #1 ea Emergency Kit) blood-glucose sensor (Dexcom G7 #3 ea 09/17/24 Sensor device) blood-glucose,loader machine,cont #1 ea 09/17/24 (Dexcom G7 Flavoring Maker) insulin lispro 100 unit/mL 10 unit (0.1 mL) subcut TID 90 09/17/24 subcutaneous half-unit pen days #30 mL (Humalog Arpan KwikPen (U-100)) insulin NPH isoph U-100 human 100 35 unit (0.35 mL) subcut BID 30 11/29/24 unit/mL (3 mL) subcutaneous pen days #21 mL Allergies Allergy/AdvReac Type Severity Reaction Status Date / Time shellfish derived Allergy Severe Throat Verified 01/28/25 18:58 Swelling General Stated Complaint: GenMedical GEOFF: 3 Exam Narrative Exam Narrative: Review of Systems: All systems reviewed & are unremarkable except as noted in HPI and below Well-developed, no acute distress NCAT PERRL, normal conjunctiva Head is shaved and there is a few areas of minor folliculitis but no obvious signs of infection There is a soft mobile suboccipital lymph node on the left noted approximately 1 cm Course Vital Signs Vital signs: Vital Signs Temperature 36.8 C 01/28/25 18:56 Pulse 78 01/28/25 18:56 Respiratory Rate 20 01/28/25 18:56 Blood Pressure 155/100 H 01/28/25 18:56 Pulse Oximetry 98 01/28/25 18:56 Temperature 36.8 C 01/28/25 18:56 Pulse 78 01/28/25 18:56 Respiratory Rate 16 01/28/25 19:25 Respiratory Effort Normal 01/28/25 19:25 Blood Pressure 155/100 H 01/28/25 18:56 Blood Pressure Position Sitting 01/28/25 18:56 Pulse Oximetry 98 01/28/25 18:56 Oxygen Delivery Method Room Air 01/28/25 18:56 Oxygen Flow Rate 0 01/28/25 18:56 Medical Decision Making Emergent evaluation of bump. The patient has a lymph node on examination. I suspect that this is likely reactive lymph node due to him shaving his head and getting some minor irritation on his scalp. There is no signs of overt infection no indication for antibiotic therapy. There is no signs of overlying cellulitis or indication for incision and drainage. Patient reports that he is a hypochondriac and just wanted to make sure that he does not have cancer. Patient was reassured and recommended close follow-up with PCP for any ongoing concerns. Quality:SDOH Health Related Social Needs: No Data to Display PFSH All Active Problems (Updated 01/28/25 @ 19:21 by Micah Bustillos MD) Anxiety about health (Acute) Lymph node enlargement (Acute) Diabetes mellitus type 1 (Acute) Fracture of fifth metacarpal bone of right hand (Acute 04/28/23) Shortness of breath (Acute) Shoulder pain, left (Acute) Low back strain (Acute) Loose stools (Acute) Anxiety (Chronic) Annual physical exam (Acute) Medical History Diabetes mellitus type 1.5 Diabetes mellitus Headache Abdominal symptoms Influenza A Diabetes mellitus Surgical History No pertinent past surgical history Family History Mother Asthma Depression Diabetes Heart disease Hypertension Father Seizures Sister Seizures Social History Smoking/Tobacco Use Status: Former Tobacco Use Tobacco: How many years used: 8 Quit status: has quit before Second Hand Exposure: Yes Smoking risk assessment performed?: Yes Alcohol Intake: never Drug use: Rarely Substance use type: does not use Caregiver/Support person: No Household members: spouse Housing: house Communication Needs: None Do you need help understanding health information?: Never Pets and animals: Yes Pets and animals: cat(s) Sexually active: Yes Do you think of yourself as: straight/heterosexual Current gender identity: male What is your relationship status?: How often do you talk on the phone with friends or family?: once per week How often do you get together with friends or relatives?: once per week How often do you attend orthodox or christian services?: decline to answer Do you belong to any clubs or organized social groups?: no Panel score (0-1 are the most socially isolated patients): 1 What type of physical activity do you participate in: walking Duration: other Frequency: daily Louise/Zoroastrianism: Rastafarian Seatbelt use: always Drive 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
== END 2025-01-28 19:25 | disposition home or self-care (01) ==
PROVIDERS: Emergency Provider Emergency Medicine; PCP Nurse Practitioner Family
DX: R59.9 Enlarged lymph nodes, unspecified (principal); E11.9 Type 2 diabetes mellitus without complications; Z79.4 Long term (current) use of insulin; F41.9 Anxiety disorder, unspecified
CPT/HCPCS: 99283

== ENCOUNTER 2025-02-19 04:06 | Outpatient (CLI) | payer OTHER, SELFPAY ==
[2025-02-19 07:58] LABS: Anion Gap 7.6 mmol/L (3-11); BUN 24 mg/dL (7-18); CO2 29.4 mmol/L (21.0-32.0); Calcium 9.4 mg/dL (8.5-10.1); Chloride 100 mmol/L (98-107); Estimated GFR 101.28 (mL/min/1.73m2); Glucose 311 mg/dL (74-106); Potassium 4.1 mmol/L (3.5-5.1); Sodium 137 mmol/L (136-145)
[2025-02-19 08:01] LABS: COMMENT (LAB VIEW ONLY) 169.67 mg/dL; Microalb ug/mg Crea 2.5 ug/mg Cr
[2025-02-26 10:06] LABS: Anti GAD65 Abs 1.68 nmol/L (<= 0.02)
== END 2025-02-19 04:07 | disposition home or self-care (01) ==
PROVIDERS: PCP Nurse Practitioner Family; Visit Provider Nurse Practitioner Family
DX: E10.9 Type 1 diabetes mellitus without complications (principal); E11.9 Type 2 diabetes mellitus without complications
CPT/HCPCS: 36415; 80048; 86337; 86341; 82043; 82570; 84681

== ENCOUNTER 2025-05-18 22:30 | Emergency (ER) | payer OTHER, SELFPAY ==
[2025-05-18] VITALS (11 sets, daily range): BP systolic 124–145; BP diastolic 79–88; PULSE 69–92; RESP 11–16; TEMP 37.1; O2SAT 96–99
--- NOTE | 2025-05-18 22:32 | W.ED.GENAD ---
Discharge Plan Disposition Patient Disposition: Home Condition: Good Discharge Details Clinical Impression: Hyperglycemia due to diabetes mellitus Primary Care Provider: Matthew Lama ED Provider: Deric Anton Home Meds and New Rx's Prescriptions: Continued (DME) insulin syringe-needle U-100 0.3 mL 31 gauge x 1/4 syringe See Rx Instructions .ROUTE .MEDSUPPLY Qty: 100 4RF Rx Instructions: As directed glucagon HCl [Glucagon (HCl) Emergency Kit] 1 mg recon soln 1 mg subcut Q20M PRN (Reason: hypoglycemia) Qty: 1 0RF Rx Instructions: until target blood sugar attained insulin NPH isoph U-100 human 100 unit/mL (3 mL) insulin pen 35 unit subcut BID 30 Days Qty: 21 12RF Patient Comments: 30-32 units in AM, 18 units in PM Rx Instructions: Inject 35 units subcutaneously twice daily as directed. (DME) BD AutoShield Duo Pen Needle 30 gauge x 3/16 needle See Rx Instructions .Route Qty: 100 12RF Rx Instructions: As directed insulin lispro [Humalog Arpan KwikPen U-100] 100 unit/mL insulin pen, half-unit 10 unit subcut TID MDD 30 units 90 Days Qty: 30 4RF Rx Instructions: Inject 5-10 units subcutaneously three times daily with meals. Use 0.5 unit doses as needed. (DME) Dexcom G7 Scientific Affairs Manager Misc See Rx Instructions .Route Qty: 1 0RF Rx Instructions: Use with Dexcom G7 sensors for blood glucose management (DME) Dexcom G7 Sensor Device See Rx Instructions .Route Qty: 3 12RF Rx Instructions: Dispense 3 sensors for 30d for the management of blood glucose Discharge Instructions Additional Instructions: You were seen in the ED after episode of vomiting, elevated glucose and ketones in your urine. There is no evidence of DKA tonight. Your labs other than blood sugar being elevated are all reassuring. Your blood sugar has come down. Will plan discharge home to follow-up with primary care as needed. Return to ED for any mental status change, fever, chest pain, syncope, persistent vomiting, abdominal pain, other concerns. Referrals: Matthew Lmaa, [employer] MACHINE OPERATOR [Primary Care Provider, Medicine] HPI General Mode of arrival: ambulatory. Date/Time Provider Initiated Documentation: 05/18/25 22:32. Limitations to Documentation: no limitations. Information obtained by: patient, RN notes reviewed and old records reviewed. HPI Narrative: Patient presents to ED with onset of nausea and vomiting, some chills in the setting of difficult to control blood sugar over the course of today. He denies having any type of fever, URI type symptoms, cough, chest pain, shortness of breath, abdominal pain. Took his long-acting insulin this morning and had low-dose throughout the morning with subsequent high sugars and frequent use of his short acting insulin to try to control them. He reports that over the last 2 weeks he had actually been doing fine with his blood sugars. He checked his ketones at home and they were elevated. He has had DKA once or twice before. Currently feels nauseated but otherwise without pain or symptoms. 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,cont #1 ea 09/17/24 05/18/25 (Dexcom G7 Scientific Affairs Manager) insulin lispro 100 unit/mL 10 unit (0.1 mL) subcut TID 90 09/17/24 05/18/25 subcutaneous half-unit pen days #30 mL (Humalog Arpan KwikPen (U-100)) insulin NPH isoph U-100 human 100 35 unit (0.35 mL) subcut BID 30 11/29/24 05/18/25 unit/mL (3 mL) subcutaneous pen days #21 mL Previous Rx's ?Medication ?Instructions ?Recorded insulin syringe-needle U-100 0.3 #100 ea 08/27/20 mL 31 gauge x 1/4 pen needle,diabetic dual safty 30 #100 ea 07/08/24 gauge x 3/16 (BD AutoShield Duo Pen Needle) glucagon HCl 1 mg solution for 1 mg subcut Q20M PRN hypoglycemia 08/27/24 injection (Glucagon (HCl) #1 ea Emergency Kit) blood-glucose sensor (Dexcom G7 #3 ea 09/17/24 Sensor device) 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 VS per triage. HEENT: NC/AT. Normal facial exam. Neck: Supple. Trachea midline. Lungs: Normal respiratory effort. Lungs are clear. Cor: RRR without murmur. Good radial pulses. GI: Soft/ND/NT. Neuro: A+O x 3. Normal speech, mentation, gait. Cranial nerves II - XII grossly intact. No gross motor or sensory deficit. Ext: No C/C/E. Medical Decision Making Patient presenting to ED with difficult to control sugars over the course of today now episode of nausea vomiting, shakes and feeling weak with ketones in his urine at home. Denies pain. Had not been feeling ill despite blood sugar problems during the day today. Exam is reassuring. His blood sugar is 359 here. Corresponds with his Dexcom. Will place IV and give a liter of fluid. Will obtain EKG, labs and urine to evaluate for possibility of DKA, infection, metabolic derangement. Patient's laboratory studies overall reassuring. White count and hemoglobin are normal. Venous pH 7.41 with pCO2 42 and bicarb 27. His BMP shows no anion gap, normal kidney function, glucose at 305. Liver functions unremarkable. Initial troponin normal. Urine does show spilling of glucose and ketones but otherwise negative. Suspect the urine findings are related to short-term elevated glucose levels with no evidence of DKA at this time. Patient continues to feel well. His blood sugars have been coming down on his Dexcom. Will plan to complete his fluid bolus obtain second troponin and if flat discharge home. Repeat troponin remains flat. Patient has felt fine since being here. Blood sugars in the 200 range now. Will plan discharge home and may follow-up with PCP as needed. Return precautions provided. Lab Data Lab results reviewed: Yes I reviewed the patient's lab results. Lab results narrative: See MDM ECG Data Attestation: I personally reviewed and interpreted this ECG (s) as follows: Prior ECG tracings: not available for review Interpretation: See MDM/EKG Quality:SDOH Health Related Social Needs: Health related social needs risk of homeless transpo insecurity daily activities Health related social needs details denies needs PFSH All Active Problems (Updated 05/19/25 @ 02:18 by Deric Anton MD) Hyperglycemia due to diabetes mellitus (Acute) Diabetes mellitus type 1 (Acute) Fracture of fifth metacarpal bone of right hand (Acute 04/28/23) Shortness of breath (Acute) Shoulder pain, left (Acute) Low back strain (Acute) Loose stools (Acute) Anxiety (Chronic) Annual physical exam (Acute) Medical History Diabetes mellitus type 1.5 Diabetes mellitus Headache Abdominal symptoms Influenza A Diabetes mellitus Surgical History No pertinent past surgical history Family History Mother Asthma Depression Diabetes Heart disease Hypertension Father Seizures Sister Seizures Social History Smoking/Tobacco Use Status: Former Tobacco Use Tobacco: How many years used: 8 Quit status: has quit before Second Hand Exposure: Yes Smoking risk assessment performed?: Yes Alcohol Intake: never Drug use: Rarely Substance use type: does not use Caregiver/Support person: No Household members: spouse Housing: house Communication Needs: None Do you need help understanding health information?: Never Pets and animals: Yes Pets and animals: cat(s) Sexually active: Yes Do you think of yourself as: straight/heterosexual Current gender identity: male What is your relationship status?: How often do you talk on the phone with friends or family?: once per week How often do you get together with friends or relatives?: once per week How often do you attend alevism or synagogue services?: decline to answer Do you belong to any clubs or organized social groups?: no Panel score (0-1 are the most socially isolated patients): 1 What type of physical activity do you participate in: walking Duration: other Frequency: daily Louise/Protestant: Scientology Seatbelt use: always Drive intox or ride w/intox goat driver: No Do you feel safe at home: Yes Do you feel safe in your relationship?: Yes
--- NOTE | 2025-05-18 22:45 | RT.EKG_ITS ---
APPROVED REPORT Exam: Resting ECG Reason for Exam: diabetic, vomiting Patient Location: E HR:85 bpm ECG Measurements Heart Rate 85 AXIS MN 153 P 72 QRSd 96 QRS 89 QT 344 T 55 QTc 410 Conclusion Sinus rhythm...normal P axis, V-rate 60- 99 ST elevation suggests acute pericarditis...ST >0.10mV, ant/lat/inf NSR at 85 Normal [place]/Interval Early Repolarization, No Acute ST Changes
[2025-05-18 23:09] LABS: BE (Venous) 2 mmol/L (-2-3); HCO3 (Venous) 27 mmol/L (23-28); O2 Sat (Venous) 88 %; TCO2 (Venous) 23 mmol/L (24-29); pCO2 (Venous) 42 mmHg (41-51); pO2 (Venous) 53 mmHg
[2025-05-18 23:11] LABS: Abs Immature Grans 0.01 10^3/uL (0.0-0.06); HCT 43.0 % (40.0-50.0); HGB 14.5 g/dL (13.5-17.5); Immature Grans % 0.2 %; MCH 29.5 pg (27.0-33.0); MCHC 33.7 % (32.0-36.0); MCV 88 fL (80-95); MPV 9.8 fL (8.0-11.0); Platelet Count 271 10^3/uL (130-400); RBC 4.91 10^6/uL (4.36-5.78); RDW 11.7 % (11.8-14.1); RDW-SD 37.5 fL; WBC 5.73 10^3/uL (4.4-10.8)
[2025-05-18 23:12] LABS: Glucose 500 mg/dL (Negative)
[2025-05-18 23:27] LABS: ALT 20 U/L (16-63); AST 11 U/L (15-37); Albumin 3.9 g/dL (3.4-5.0); Alkaline Phosphatase 137 U/L (46-116); Anion Gap 10.5 mmol/L (3-11); BUN 22 mg/dL (7-18); Bilirubin, Total 0.3 mg/dL (0.2-1.0); CO2 27.5 mmol/L (21.0-32.0); Calcium 9.2 mg/dL (8.5-10.1); Chloride 101 mmol/L (98-107); Estimated GFR 73.93 (mL/min/1.73m2); Glucose 305 mg/dL (74-106); Magnesium 2.1 mg/dL (1.8-2.4); Potassium 3.7 mmol/L (3.5-5.1); Sodium 139 mmol/L (136-145); Total Protein 8.2 g/dL (6.4-8.2)
[2025-05-18 23:31] LABS: Troponin I < 4 ng/L (<or=76)
[2025-05-19] VITALS (27 sets, daily range): BP systolic 113–139; BP diastolic 58–82; PULSE 57–87; RESP 11–20; TEMP 37.1; O2SAT 95–100
[2025-05-19] MEDS: Normal Saline 1,000 ML 1000 ML IV (00:45)
[2025-05-19 02:15] LABS: Troponin I < 4 ng/L (<or=76)
== END 2025-05-19 03:08 | disposition home or self-care (01) ==
PROVIDERS: Emergency Provider Emergency Medicine; PCP Nurse Practitioner Family
DX: E11.65 Type 2 diabetes mellitus with hyperglycemia (principal); Z59.811 Housing instability, housed, with risk of homelessness; Z59.82 Transportation insecurity
CPT/HCPCS: 36415; 36416; 80053; 82805; 82962; 93005; 96360; 99284; 81003; 83735; 84484; 85025; 93010; 99283

== ENCOUNTER 2025-08-15 17:30 | Emergency (ER) | payer OTHER, SELFPAY ==
[2025-08-15] VITALS (12 sets, daily range): BP systolic 121–158; BP diastolic 70–93; PULSE 96–128; RESP 11–22; TEMP 35.8–37.4; O2SAT 95–99
--- NOTE | 2025-08-15 17:30 | DI.RAD_ITS ---
Exam(s) XR CHEST 2V PA LATERAL EXAM: XR CHEST 2V PA LATERAL CLINICAL HISTORY: malaise. TECHNIQUE: 2D digital imaging was performed. COMPARISON: CR,XR XR CHEST 2V PA LATERAL from 07/23/2024 FINDINGS: 2 views: Heart size is normal. The mediastinum is not widened. Lungs are clear. No infiltrates nor pleural effusions. IMPRESSION: No acute pulmonary findings. DATA REPOSITORY: RADIATION DOSE DELIVERED:
[2025-08-15] MEDS: ACETAMINOPHEN 1,000 MG/100 ML BAG 400 MG IVPB (18:00)
--- NOTE | 2025-08-15 18:00 | RT.EKG_ITS ---
APPROVED REPORT Exam: Resting ECG Reason for Exam: left lower chest pain Patient Location: E HR:101 bpm ECG Measurements Heart Rate 101 AXIS [place] 145 P 74 QRSd 97 QRS 101 QT 339 T 51 QTc 439 Conclusion Sinus tachycardia...rate> 99 Right axis deviation...QRS axis (100,269) No STEMI
[2025-08-15] MEDS: Normal Saline 1,000 ML 1000 ML IV ×3 (18:01→21:15)
[2025-08-15] MEDS: Ondansetron 4 MG/2 ML VIAL (18:01)
[2025-08-15 18:05] LABS: BE (Venous) 1 mmol/L (-2-3); HCO3 (Venous) 26 mmol/L (23-28); O2 Sat (Venous) 64 %; TCO2 (Venous) 23 mmol/L (24-29); pCO2 (Venous) 47 mmHg (41-51); pO2 (Venous) 34 mmHg
[2025-08-15 18:07] LABS: Abs Immature Grans 0.03 10^3/uL (0.0-0.06); HCT 48.1 % (40.0-50.0); HGB 16.1 g/dL (13.5-17.5); Immature Grans % 0.3 %; MCH 29.3 pg (27.0-33.0); MCHC 33.5 % (32.0-36.0); MCV 88 fL (80-95); MPV 9.9 fL (8.0-11.0); Platelet Count 255 10^3/uL (130-400); RBC 5.49 10^6/uL (4.36-5.78); RDW 12.0 % (11.8-14.1); RDW-SD 38.8 fL; WBC 9.63 10^3/uL (4.4-10.8)
[2025-08-15 18:23] LABS: Lipase 22 U/L (<53); Magnesium 1.8 mg/dL (1.6-2.6)
[2025-08-15 18:25] LABS: ALT 17 U/L (10-49); AST 18 U/L (<34); Albumin 4.8 g/dL (3.2-5.0); Alkaline Phosphatase 93 U/L (46-116); Anion Gap 13.1 mmol/L (3-11); BUN 17 mg/dL (9-23); Bilirubin, Total 0.6 mg/dL (0.2-1.2); CO2 25.9 mmol/L (20.0-31.0); Calcium 9.5 mg/dL (8.3-10.6); Chloride 102 mmol/L (98-107); Glucose 251 mg/dL (74-106); Potassium 3.5 mmol/L (3.5-5.1); Sodium 141 mmol/L (136-145); Total Protein 8.4 g/dL (5.7-8.2); Troponin I < 3 ng/L (<54)
[2025-08-15 18:30] LABS: Beta Hydroxybutyrate 1.02 mmol/L (0.02-0.27)
[2025-08-15 18:34] LABS: D-Dimer 348 ng/mlFEU (<500)
[2025-08-15] MEDS: Metoclopramide 10 MG/2 ML VIAL IVP ×2 (18:50→21:24)
[2025-08-15 18:54] LABS: COVID-19 PCR Negative (Negative); RSV PCR Negative (Negative)
--- NOTE | 2025-08-15 19:31 | W.ED.GENAD ---
Discharge Plan Discharge Details Chief Complaint: Nausea/Vomit/Diar Clinical Impression: Gastroenteritis, Tachycardia, Hyperglycemia, Bilateral sacroiliitis, Chronic back pain Primary Care Provider: Matthew Lama ED Provider: Jay Issa Home Meds and New Rx's Prescriptions: New ondansetron 4 mg tablet,disintegrating 4 mg PO Q6H PRNQty: 20 0RF No Action (DME) insulin syringe-needle U-100 0.3 mL 31 gauge x 1/4 syringe See Rx Instructions .ROUTE .MEDSUPPLY Qty: 100 4RF Rx Instructions: As directed glucagon HCl [Glucagon (HCl) Emergency Kit] 1 mg recon soln 1 mg subcut Q20M PRN (Reason: hypoglycemia) Qty: 1 0RF Rx Instructions: until target blood sugar attained insulin NPH isoph U-100 human 100 unit/mL (3 mL) insulin pen 35 unit subcut BID 30 Days Qty: 21 12RF Patient Comments: 30-32 units in AM, 18 units in PM Rx Instructions: Inject 35 units subcutaneously twice daily as directed. (DME) BD AutoShield Duo Pen Needle 30 gauge x 3/16 needle See Rx Instructions .Route Qty: 100 12RF Rx Instructions: As directed insulin lispro [Humalog Arpan KwikPen U-100] 100 unit/mL insulin pen, half-unit 10 unit subcut TID MDD 30 units 90 Days Qty: 30 4RF Rx Instructions: Inject 5-10 units subcutaneously three times daily with meals. Use 0.5 unit doses as needed. (DME) Dexcom G7 Environmental Health Safety Engineer Misc See Rx Instructions .Route Qty: 1 0RF Rx Instructions: Use with Dexcom G7 sensors for blood glucose management (DME) Dexcom G7 Sensor Device See Rx Instructions .Route Qty: 3 12RF Rx Instructions: Dispense 3 sensors for 30d for the management of blood glucose Discharge Instructions Additional Instructions: As discussed, your evaluation today is reassuring that you do not have an emergent condition which would require further hospitalization. You do not appear to be in diabetic ketoacidosis, your heart rate is improved following fluid administration, and your symptoms improved following medication administration. Importantly, your CT was notable for gastroenteritis, with sacroiliitis, and in the setting of you having chronic lower back pain for many years, it is a concerning story for possible undiagnosed inflammatory disorder which may be the underlying cause of your presentation tonight. It is important that you follow-up with these findings with your primary care provider and discuss further testing which would likely include inflammatory markers and genetic markers to determine if you have an inflammatory condition. They may even recommend that you undergo early colonoscopy for further evaluation if you test positive for these markers. Please follow-up with your primary care provider regarding your visit to the emergency department today. Be sure to discuss results of all test performed here today to include radiology, and laboratory testing as well as results for any pending cultures. Should your symptoms worsen, or if you develop new concerning symptoms, please return immediately emergency department for further evaluation. HPI General Date/Time Provider Initiated Documentation: 08/15/25 17:39. HPI Narrative: MDM/Narrative: 34-year-old male with type 1 diabetes, presents for evaluation of nausea vomiting and left lower lateral thorax pain x 1 day. Vital signs notable for tachycardia and hypertension. Physical exam shows a soft soft nontender abdomen and who is repeatedly vomiting on initial evaluation. Given patient's comorbidities concern for possible DKA, sepsis, pneumonia, intra-abdominal pathology such as pancreatitis, less likely ACS or PE. Will obtain screening labs EKG and chest x-ray. Given elevated heart rate and pain in the thorax, will obtain a D-dimer and otherwise low risk patient for PE. Will treat with Zofran, IV fluids, and reassess. ED course: Initial laboratories notable for no leukocytosis, negative troponin, negative D-dimer. Metabolic panel notes a mild anion gap of 13, VBG shows a normal pH, but patient does have an elevated beta hydroxybutyrate, likely representing a very early DKA. Will continue to search for possible causes, to include pneumonia, intra-abdominal infection and urinary tract infection. Chest x-ray shows no acute infiltrates, CT notable for enteritis, no other acute findings. UA pending at this time, patient's heart rate is improved down to about 105-110 during my reevaluation however he is still pending a second liter of IV fluids. Will continue to monitor, ensure heart rate is normalized, suspect patient will be stable for discharge following last liter of IV fluids, plus or minus antibiotics for treatment of a UTI if present on UA. CT imaging over read by our Dr. Lizarraga of radiology, who agrees with enteritis however also notes bilateral sacroiliitis, in the setting of the after mentioned findings and clinical presentation including bilateral lower back pain more severe in the morning and improving throughout the day raises suspicion for possible inflammatory bowel disease. On reassessment, I shared these results and explained the possibility of this diagnosis to the patient that he will require outpatient follow-up, for blood testing to include inflammatory markers, autoimmune markers, and potentially an outpatient colonoscopy. He is in agreement of the care plan and understanding of these findings. He notes that he typically eats about 5 PM and takes his insulin at 8, at this point he has not eaten all day, is nervous to take his insulin, will allow patient to eat here in the emergency department and dose his insulin as he is receiving fluids to ensure he does not have a hypoglycemic event. Plan of care signed out to Dr. Bryant pending UA, repeat vital signs, p.o. challenge/insulin administration and disposition. Clinical impression: Gastroenteritis Tachycardia Disposition: Pending at time of signout HPI: 34-year-old male with past ministry of diabetes, presents for evaluation of nausea vomiting which began approximately 2 hours before arrival. Patient notes approximately 10 episodes of nonbilious nonbloody emesis. He denies any associated fever, chills, but notes yesterday had pain in his lower left thorax rating to his back which has spontaneously resolved today. Denies any respecters for PE, history of alcohol use, or drugs. Patient also makes mention of longstanding chronic lower back pain which is severe in the mornings, and improves throughout the day for as long as he can remember. ROS: Negative besides as mentioned above Exam: Gen: A&O, repeatedly vomiting on exam. HEENT: NCAT, EOMI, not icteric. External ears normal. No rhinorrhea. Moist mucous membranes. Neck: Supple, full range of motion, no observable masses, No meningeal sign. Lungs: No Respiratory distress. CV: Tachycardia, no edema. Abdomen: Soft, nondistended, No rebound tenderness. MSK: No joint swelling, no redness. Skin: No rashes, petechiae, lesions. Normal color per patient. Neuro: Normal Gait, Grossly intact. Psych: Appropriate for situation. Rhythm: Sinus tachycardia Rate: 101 Aubrey: Rightward axis Intervals: Normal intervals Other findings: No acute ST segment or T wave changes to suggest acute ischemia. Labs: Laboratory Tests Range/Units 08/15/25 08/15/25 17:51 17:57 WBC (4.4-10.8) 10^3/uL 9.63 RBC (4.36-5.78) 10^6/uL 5.49 Hgb (13.5-17.5) g/dL 16.1 Hct (40.0-50.0) % 48.1 MCV (80-95) fL 88 MCH (27.0-33.0) pg 29.3 MCHC (32.0-36.0) % 33.5 RDW (11.8-14.1) % 12.0 Plt Count (130-400) 10^3/uL 255 MPV (8.0-11.0) fL 9.9 Immature Gran % % 0.3 Neutrophils % % 88.2 Lymphocytes % % 5.5 Monocytes % % 5.0 Eosinophils % % 0.6 Basophils % % 0.4 Nucleated RBC % (0.0-0.3) % 0.0 Absolute Neutrophils (1.2-6.7) 10^3/uL 8.49 H Absolute Lymphocytes (1.2-3.4) 10^3/uL 0.53 L Absolute Monocytes (0.1-0.8) 10^3/uL 0.48 Absolute Eosinophils (0.0-0.7) 10^3/uL 0.06 Absolute Basophils (0.0-0.2) 10^3/uL 0.04 D-Dimer (<500) ng/mlFEU 348 VBG pH (7.31-7.41) 7.35 VBG pCO2 (41-51) mmHg 47 VBG pO2 mmHg 34 VBG HCO3 (23-28) mmol/L 26 VBG Total CO2 (24-29) mmol/L 23 L VBG O2 Saturation % 64 VBG Base Excess (-2-3) mmol/L 1 VBG Lactate (<or=2.0) mmol/L 2.0 Sodium (136-145) mmol/L 141 Potassium (3.5-5.1) mmol/L 3.5 Chloride (98-107) mmol/L 102 Carbon Dioxide (20.0-31.0) mmol/L 25.9 Anion Gap (3-11) mmol/L 13.1 H BUN (9-23) mg/dL 17 Creatinine (0.73-1.18) mg/dL 0.87 Est GFR (CKD-EPI 2020) (mL/min/1.73m2) 99.93 Glucose (74-106) mg/dL 251 H Calcium (8.3-10.6) mg/dL 9.5 Magnesium (1.6-2.6) mg/dL 1.8 Total Bilirubin (0.2-1.2) mg/dL 0.6 AST (<34) U/L 18 ALT (10-49) U/L 17 Alkaline Phosphatase (46-116) U/L 93 Troponin I (<54) ng/L < 3 Total Protein (5.7-8.2) g/dL 8.4 H Albumin (3.2-5.0) g/dL 4.8 Lipase (<53) U/L 22 Beta-Hydroxybutyrate (0.02-0.27) mmol/L 1.02 H COVID-19 Source Nasopharynx SARS-CoV-2 (PCR) (Negative) Negative Influenza Type A (PCR) (Negative) Negative Influenza Type B (PCR) (Negative) Negative RSV (PCR) (Negative) Negative Radiology: Accession No. : [id number] Creator : Madi Coffey Dictator : Madi Coffey Senior Benefits Manager : Signal Engineer : Madi Coffey Approver2 : Report Date : 08/15/2025 20:11:40 This report is currently processing and HAS NOT BEEN OFFICIALLY SIGNED BY THE PHYSICIAN - ESTIMATED TIME OF APPROVAL IS 08/15/2025 20:22. Exam(s) CT ABDOMEN PELVIS W EXAM: CT ABDOMEN PELVIS W CLINICAL HISTORY: persistent vomiting. TECHNIQUE: Imaging Protocol: Axial computed tomography images with coronal and sagittal reformatted images were created and reviewed CONTRAST MATERIAL: Intravenous: Omnipaque-350 100cc Oral: None COMPARISON: No exams were available for comparison FINDINGS: VISUALIZED LUNG BASES: No nodules nor pleural effusions evident. ABDOMEN: There is no ascites. LIVER: There are no focal hepatic lesions evident. No dilated intrahepatic ducts. GALLBLADDER/BILIARY: No obvious gallbladder pathology. CBD is not dilated. PANCREAS: No evidence of pancreatic mass nor dilatation of the pancreatic duct. SPLEEN: Spleen is not enlarged. No obvious intrasplenic lesions. Splenic and portal veins are patent. ADRENALS: There are no significant adrenal masses. KIDNEYS:No cysts evident. No solid renal masses. No calculi nor hydronephrosis.. ABDOMINAL AORTA: Abdominal aorta is not enlarged. LYMPH NODES:There is no retroperitoneal nor paraaortic adenopathy. ABDOMINAL WALL: No evidence of significant anterior abdominal wall nor inguinal hernia. GI: All small bowel loops are fluid-filled; probable enteritis pattern. There is no evidence of bowel obstruction, free air, nor abscess. PELVIS: GI: No evidence of appendicitis.No evidence of sigmoid diverticulitis. LYMPH NODES: There is no intrapelvic nor inguinal adenopathy. REPRODUCTIVE: Prostate gland size is normal. URINARY BLADDER: No calculi nor obvious masses evident OSSEOUS: No fractures and no significant osseous lesions. Sacroiliac joints reveal evidence of bilateral sacroiliitis. IMPRESSION: 1. Diffuse small-bowel enteritis pattern. 2. There is also bilateral sacroiliitis. Given the above combination there is consideration for inflammatory bowel disease. Called by myself to ER physician 08/15/2025 at 8:07 p.m. RADIATION DOSE DELIVERED: 325.73mGy.cm Total DLP DATA REPOSITORY: All CT scans at this facility are submitted to the National Radiology Data Registry (NRDR) Dose Index Registry (DIR) with the [employer] (ACR). RADIATION OPTIMIZATION: All CT scans at this facility use at least one of these dose optimization techniques: automated exposure control; mA and/or kV adjustment per patient size (includes targeted exams where dose is matched to clinical indication); or iterative reconstruction. PROCEDURE INFORMATION: Exam: XR Chest Exam date and time: 08/15/2025 6:56 PM Age: 34 years old Clinical indication: Other: Malaise TECHNIQUE: Imaging protocol: Radiologic exam of the chest. Views: 2 views. COMPARISON: CR XR CHEST 2V PA LATERAL 07/23/2024 7:53 PM FINDINGS: Lungs: Unremarkable. No consolidation. Pleural spaces: Unremarkable. No pleural effusion. No pneumothorax. Heart/Mediastinum: Unremarkable. No cardiomegaly. Bones/joints: Unremarkable. IMPRESSION: No evidence for acute abnormality in the chest. Thank you for allowing us to participate in the care of your patient. Dictated and Authenticated by: Lacie Herzog MD Related Data Home Medications ?Medication ?Instructions ?Recorded ?Confirmed insulin syringe-needle U-100 0.3 #100 ea 08/27/20 05/18/25 mL 31 gauge x 1/4 pen needle,diabetic dual safty 30 #100 ea 07/08/24 05/18/25 gauge x 3/16 (BD AutoShield Duo Pen Needle) glucagon HCl 1 mg solution for 1 mg subcut Q20M PRN hypoglycemia 08/27/24 05/18/25 injection (Glucagon (HCl) #1 ea Emergency Kit) blood-glucose sensor (Dexcom G7 #3 ea 09/17/24 05/18/25 Sensor device) blood-glucose,fuel cell technician,cont #1 ea 09/17/24 05/18/25 (Dexcom G7 Environmental Health Safety Engineer) insulin lispro 100 unit/mL 10 unit (0.1 mL) subcut TID 90 09/17/24 05/18/25 subcutaneous half-unit pen days #30 mL (Humalog Arpan KwikPen (U-100)) insulin NPH isoph U-100 human 100 35 unit (0.35 mL) subcut BID 30 11/29/24 05/18/25 unit/mL (3 mL) subcutaneous pen days #21 mL ondansetron 4 mg disintegrating 4 mg PO Q6H PRN #20 tabs 08/15/25 tablet Previous Rx's ?Medication ?Instructions ?Recorded insulin syringe-needle U-100 0.3 #100 ea 08/27/20 mL 31 gauge x 1/4 pen needle,diabetic dual safty 30 #100 ea 07/08/24 gauge x 3/16 (BD AutoShield Duo Pen Needle) glucagon HCl 1 mg solution for 1 mg subcut Q20M PRN hypoglycemia 08/27/24 injection (Glucagon (HCl) #1 ea Emergency Kit) blood-glucose sensor (Dexcom G7 #3 ea 09/17/24 Sensor device) blood-glucose,fuel cell technician,cont #1 ea 09/17/24 (Dexcom G7 Environmental Health Safety Engineer) insulin lispro 100 unit/mL 10 unit (0.1 mL) subcut TID 90 09/17/24 subcutaneous half-unit pen days #30 mL (Humalog Arpan KwikPen (U-100)) insulin NPH isoph U-100 human 100 35 unit (0.35 mL) subcut BID 30 11/29/24 unit/mL (3 mL) subcutaneous pen days #21 mL ondansetron 4 mg disintegrating 4 mg PO Q6H PRN #20 tabs 08/15/25 tablet Allergies Allergy/AdvReac Type Severity Reaction Status Date / Time shellfish derived Allergy Severe Throat Verified 08/15/25 18:38 Swelling General Stated Complaint: Nausea/Vomit/Diar GEOFF: 3 Course Vital Signs Vital signs: Vital Signs Temperature 35.8 C L 08/15/25 17:35 Pulse 128 H 08/15/25 17:35 Respiratory Rate 16 08/15/25 17:35 Blood Pressure 158/85 H 08/15/25 17:35 Temperature 35.8 C L 08/15/25 17:37 Pulse 128 H 08/15/25 17:37 Respiratory Rate 16 08/15/25 17:37 Blood Pressure 158/85 H 08/15/25 17:37 Lab/Test Results Lab/Test Results: Laboratory Tests Range/Units 08/15/25 08/15/25 17:51 17:57 WBC (4.4-10.8) 10^3/uL 9.63 RBC (4.36-5.78) 10^6/uL 5.49 Hgb (13.5-17.5) g/dL 16.1 Hct (40.0-50.0) % 48.1 MCV (80-95) fL 88 MCH (27.0-33.0) pg 29.3 MCHC (32.0-36.0) % 33.5 RDW (11.8-14.1) % 12.0 Plt Count (130-400) 10^3/uL 255 MPV (8.0-11.0) fL 9.9 Immature Gran % % 0.3 Neutrophils % % 88.2 Lymphocytes % % 5.5 Monocytes % % 5.0 Eosinophils % % 0.6 Basophils % % 0.4 Nucleated RBC % (0.0-0.3) % 0.0 Absolute Neutrophils (1.2-6.7) 10^3/uL 8.49 H Absolute Lymphocytes (1.2-3.4) 10^3/uL 0.53 L Absolute Monocytes (0.1-0.8) 10^3/uL 0.48 Absolute Eosinophils (0.0-0.7) 10^3/uL 0.06 Absolute Basophils (0.0-0.2) 10^3/uL 0.04 D-Dimer (<500) ng/mlFEU 348 VBG pH (7.31-7.41) 7.35 VBG pCO2 (41-51) mmHg 47 VBG pO2 mmHg 34 VBG HCO3 (23-28) mmol/L 26 VBG Total CO2 (24-29) mmol/L 23 L VBG O2 Saturation % 64 VBG Base Excess (-2-3) mmol/L 1 VBG Lactate (<or=2.0) mmol/L 2.0 Sodium (136-145) mmol/L 141 Potassium (3.5-5.1) mmol/L 3.5 Chloride (98-107) mmol/L 102 Carbon Dioxide (20.0-31.0) mmol/L 25.9 Anion Gap (3-11) mmol/L 13.1 H BUN (9-23) mg/dL 17 Creatinine (0.73-1.18) mg/dL 0.87 Est GFR (CKD-EPI 2020) (mL/min/1.73m2) 99.93 Glucose (74-106) mg/dL 251 H Calcium (8.3-10.6) mg/dL 9.5 Magnesium (1.6-2.6) mg/dL 1.8 Total Bilirubin (0.2-1.2) mg/dL 0.6 AST (<34) U/L 18 ALT (10-49) U/L 17 Alkaline Phosphatase (46-116) U/L 93 Troponin I (<54) ng/L < 3 Total Protein (5.7-8.2) g/dL 8.4 H Albumin (3.2-5.0) g/dL 4.8 Lipase (<53) U/L 22 Beta-Hydroxybutyrate (0.02-0.27) mmol/L 1.02 H COVID-19 Source Nasopharynx SARS-CoV-2 (PCR) (Negative) Negative Influenza Type A (PCR) (Negative) Negative Influenza Type B (PCR) (Negative) Negative RSV (PCR) (Negative) Negative Medical Decision Making Quality:SDOH Health Related Social Needs: Health related social needs risk of homeless transpo insecurity daily activities Health related social needs details denies needs PFSH All Active Problems (Updated 08/15/25 @ 20:30 by Jay Issa MD) Chronic back pain (Acute) Bilateral sacroiliitis (Acute) Hyperglycemia (Acute) Tachycardia (Acute) Gastroenteritis (Acute) Diabetes mellitus type 1 (Acute) Fracture of fifth metacarpal bone of right hand (Acute 04/28/23) Shortness of breath (Acute) Shoulder pain, left (Acute) Low back strain (Acute) Loose stools (Acute) Anxiety (Chronic) Annual physical exam (Acute) Medical History Diabetes mellitus type 1.5 Diabetes mellitus Headache Abdominal symptoms Influenza A Diabetes mellitus Surgical History No pertinent past surgical history Family History Mother Asthma Depression Diabetes Heart disease Hypertension Father Seizures Sister Seizures Social History Smoking/Tobacco Use Status: Former Tobacco Use Tobacco: How many years used: 8 Quit status: has quit before Second Hand Exposure: Yes Smoking risk assessment performed?: Yes Alcohol Intake: never Drug use: Never Substance use type: does not use Caregiver/Support person: No Household members: spouse Housing: house Communication Needs: None Do you need help understanding health information?: Never Pets and animals: Yes Pets and animals: cat(s) Sexually active: Yes Do you think of yourself as: straight/heterosexual Current gender identity: male What is your relationship status?: How often do you talk on the phone with friends or family?: once per week How often do you get together with friends or relatives?: once per week How often do you attend scientology or anglican services?: decline to answer Do you belong to any clubs or organized social groups?: no Panel score (0-1 are the most socially isolated patients): 1 What type of physical activity do you participate in: walking Duration: other Frequency: daily Louise/Quaker: Scientologist Seatbelt use: always Drive intox or ride w/intox motor pool driver: No Do you feel safe at home: Yes Do you feel safe in your relationship?: Yes
[2025-08-15] MEDS: Omnipaque 350 MG/ML 100 ML BTL IJ (19:32)
[2025-08-15] MEDS: Normal Saline - Diluent 50 ML VIAL IJ (19:32)
[2025-08-15] MEDS: Normal Saline Flush 10 ML SYR IVP (19:33)
--- NOTE | 2025-08-15 19:39 | DI.CT_ITS ---
Exam(s) CT ABDOMEN PELVIS W EXAM: CT ABDOMEN PELVIS W CLINICAL HISTORY: persistent vomiting. TECHNIQUE: Imaging Protocol: Axial computed tomography images with coronal and sagittal reformatted images were created and reviewed CONTRAST MATERIAL: Intravenous: Omnipaque-350 100cc Oral: None COMPARISON: No exams were available for comparison FINDINGS: VISUALIZED LUNG BASES: No nodules nor pleural effusions evident. ABDOMEN: There is no ascites. LIVER: There are no focal hepatic lesions evident. No dilated intrahepatic ducts. GALLBLADDER/BILIARY: No obvious gallbladder pathology. CBD is not dilated. PANCREAS: No evidence of pancreatic mass nor dilatation of the pancreatic duct. SPLEEN: Spleen is not enlarged. No obvious intrasplenic lesions. Splenic and portal veins are patent. ADRENALS: There are no significant adrenal masses. KIDNEYS:No cysts evident. No solid renal masses. No calculi nor hydronephrosis.. ABDOMINAL AORTA: Abdominal aorta is not enlarged. LYMPH NODES:There is no retroperitoneal nor paraaortic adenopathy. ABDOMINAL WALL: No evidence of significant anterior abdominal wall nor inguinal hernia. GI: All small bowel loops are fluid-filled; probable enteritis pattern. There is no evidence of bowel obstruction, free air, nor abscess. PELVIS: GI: No evidence of appendicitis.No evidence of sigmoid diverticulitis. LYMPH NODES: There is no intrapelvic nor inguinal adenopathy. REPRODUCTIVE: Prostate gland size is normal. URINARY BLADDER: No calculi nor obvious masses evident OSSEOUS: No fractures and no significant osseous lesions. Sacroiliac joints reveal evidence of bilateral sacroiliitis. IMPRESSION: 1. Diffuse small-bowel enteritis pattern. 2. There is also bilateral sacroiliitis. Given the above combination there is consideration for inflammatory bowel disease. Called by myself to ER physician 08/15/2025 at 8:07 p.m. RADIATION DOSE DELIVERED: 325.73mGy.cm Total DLP DATA REPOSITORY: All CT scans at this facility are submitted to the National Radiology Data Registry (NRDR) Dose Index Registry (DIR) with the [employer] (ACR). RADIATION OPTIMIZATION: All CT scans at this facility use at least one of these dose optimization techniques: automated exposure control; mA and/or kV adjustment per patient size (includes targeted exams where dose is matched to clinical indication); or iterative reconstruction.
--- NOTE | 2025-08-15 19:44 | DI.VRAD_ITS ---
PROCEDURE INFORMATION: Exam: CT Abdomen And Pelvis With Contrast Exam date and time: 08/15/2025 7:23 PM Age: 34 years old Clinical indication: Persistent vomiting TECHNIQUE: Imaging protocol: Computed tomography of the abdomen and pelvis with contrast. Radiation optimization: All CT scans at this facility use at least one of these dose optimization techniques: automated exposure control; mA and/or kV adjustment per patient size (includes targeted exams where dose is matched to clinical indication); or iterative reconstruction. Contrast material: [id number]; Contrast volume: 75 ml; Contrast route: INTRAVENOUS (IV); COMPARISON: CR XR CHEST 2V PA LATERAL 08/15/2025 6:56 PM FINDINGS: Liver: Normal. No mass. Gallbladder and biliary ducts: Normal. No calcified stones. No ductal dilation. Pancreas: Normal. No ductal dilation. Spleen: Normal. No splenomegaly. Adrenal glands: Normal. No mass. Kidneys and ureters: Normal. No hydronephrosis. Stomach and bowel: There is some mild wall thickening involving proximal jejunal loops. There is no abnormal bowel distension. No additional wall thickening noted. Next lines Appendix: No evidence of appendicitis. Intraperitoneal space: Unremarkable. No free air. No significant fluid collection. Vasculature: Unremarkable. No abdominal aortic aneurysm. Lymph nodes: Unremarkable. No enlarged lymph nodes. Urinary bladder: Unremarkable as visualized. Reproductive: Unremarkable as visualized. Bones/joints: Unremarkable. No acute fracture. Soft tissues: Unremarkable. IMPRESSION: Probable mild enteritis. Dictated and Authenticated by: Lacie Herzog MD. Orderin Maegan Thompson MD
--- NOTE | 2025-08-15 19:46 | DI.VRAD_ITS ---
PROCEDURE INFORMATION: Exam: XR Chest Exam date and time: 08/15/2025 6:56 PM Age: 34 years old Clinical indication: Other: Malaise TECHNIQUE: Imaging protocol: Radiologic exam of the chest. Views: 2 views. COMPARISON: CR XR CHEST 2V PA LATERAL 07/23/2024 7:53 PM FINDINGS: Lungs: Unremarkable. No consolidation. Pleural spaces: Unremarkable. No pleural effusion. No pneumothorax. Heart/Mediastinum: Unremarkable. No cardiomegaly. Bones/joints: Unremarkable. IMPRESSION: No evidence for acute abnormality in the chest. Dictated and Authenticated by: Lacie Herzog MD. Orderin Maegan Thompson MD
[2025-08-15 20:27] LABS: Glucose 500 mg/dL (Negative)
[2025-08-15 20:33] LABS: C & S Indicated? No; WBC Negative HPF (0-5)
--- NOTE | 2025-08-15 23:00 | W.EDPROG ---
Date of service: 08/15/25 Time of Service: 23:10 Medical Decision Making Patient was signed out to me by my colleague Dr. Issa. Please refer to his HPI, physical exam, assessment and plan. At time of signout we were awaiting urinalysis results and reassessment after IV fluids. On reassessment patient states that he feels better, however his heart rate still is elevated in the 110's. Review of his workup shows no white count, no fever, no bandemia. No acidosis, no evidence of significant DKA. Patient has been thoroughly rehydrated with 3 L. Urinalysis shows no infection. Rhythm strip shows sinus tachycardia. No A-fib with RVR. He has no chest pain to suggest PE. No fever to suggest bacteremia. He denies IV or illicit drug use. He has no severe or significant dental infection. No evidence to suggest sepsis. COVID flu and RSV testing was negative. I discussed with the patient continued observation versus discharge. We discussed the risks and benefits of this. Patient has elected to go home at this time. At this time based on the patient's current clinical assessment he shows no other evidence to suggest an acute life-threatening etiology. Patient will be discharged home with strict instructions to promptly return if symptoms do worsen, he develops fever or any other concerning symptomatology. Patient's blood sugar has notably improved while here. Discussed red flags for which to return. I have extensively reviewed the treatment plan and discharge instructions with the patient and their family. I have addressed all patient concerns at this time. The patient and family was made aware of what symptoms to monitor for that would warrant a return to the emergency department. Discussed the plan with the patient and family, they demonstrate verbal understanding and agreement with our assessment and plan at this time. The documentation in this chart was dictated using Lott[employer] dictation software. Please excuse any dictation errors. Quality:SDOH Health Related Social Needs: Health related social needs risk of homeless transpo insecurity daily activities Health related social needs details denies needs Discharge Plan Disposition Patient Disposition: Home Condition: Good Discharge Details Clinical Impression: Gastroenteritis, Tachycardia, Hyperglycemia, Bilateral sacroiliitis, Chronic back pain Primary Care Provider: Matthew Lama ED Provider: Pranav Bryant Home Meds and New Rx's Prescriptions: New ondansetron 4 mg tablet,disintegrating 4 mg PO Q6H PRNQty: 20 0RF No Action (DME) insulin syringe-needle U-100 0.3 mL 31 gauge x 1/4 syringe See Rx Instructions .ROUTE .MEDSUPPLY Qty: 100 4RF Rx Instructions: As directed glucagon HCl [Glucagon (HCl) Emergency Kit] 1 mg recon soln 1 mg subcut Q20M PRN (Reason: hypoglycemia) Qty: 1 0RF Rx Instructions: until target blood sugar attained insulin NPH isoph U-100 human 100 unit/mL (3 mL) insulin pen 35 unit subcut BID 30 Days Qty: 21 12RF Patient Comments: 30-32 units in AM, 18 units in PM Rx Instructions: Inject 35 units subcutaneously twice daily as directed. (DME) BD AutoShield Duo Pen Needle 30 gauge x 3/16 needle See Rx Instructions .Route Qty: 100 12RF Rx Instructions: As directed insulin lispro [Humalog Arpan KwikPen U-100] 100 unit/mL insulin pen, half-unit 10 unit subcut TID MDD 30 units 90 Days Qty: 30 4RF Rx Instructions: Inject 5-10 units subcutaneously three times daily with meals. Use 0.5 unit doses as needed. (DME) Dexcom G7 Neurosurgery Physician Misc See Rx Instructions .Route Qty: 1 0RF Rx Instructions: Use with Dexcom G7 sensors for blood glucose management (DME) Dexcom G7 Sensor Device See Rx Instructions .Route Qty: 3 12RF Rx Instructions: Dispense 3 sensors for 30d for the management of blood glucose Discharge Instructions Additional Instructions: As discussed, your evaluation today is reassuring that you do not have an emergent condition which would require further hospitalization. You do not appear to be in diabetic ketoacidosis, your heart rate is improved following fluid administration, and your symptoms improved following medication administration. Importantly, your CT was notable for gastroenteritis, with sacroiliitis, and in the setting of you having chronic lower back pain for many years, it is a concerning story for possible undiagnosed inflammatory disorder which may be the underlying cause of your presentation tonight. It is important that you follow-up with these findings with your primary care provider and discuss further testing which would likely include inflammatory markers and genetic markers to determine if you have an inflammatory condition. They may even recommend that you undergo early colonoscopy for further evaluation if you test positive for these markers. Please follow-up with your primary care provider regarding your visit to the emergency department today. Be sure to discuss results of all test performed here today to include radiology, and laboratory testing as well as results for any pending cultures. Should your symptoms worsen, or if you develop new concerning symptoms, please return immediately emergency department for further evaluation. Stand Alone Forms: Portal Information Referrals: Matthew Lama NP [Primary Care Provider, Medicine]
[2025-08-15] MEDS: Ondansetron O.D.T. 4 MG TABEF, 3 TABS/BTL PO (23:16)
== END 2025-08-15 23:17 | disposition home or self-care (01) ==
PROVIDERS: General Practice; Emergency Provider Student in an Organized Health Care Education/Training Program; PCP Nurse Practitioner Family
DX: G89.29 Other chronic pain; M46.1 Sacroiliitis, not elsewhere classified; R00.0 Tachycardia, unspecified; E10.65 Type 1 diabetes mellitus with hyperglycemia; K52.9 Noninfective gastroenteritis and colitis, unspecified; M54.50 Low back pain, unspecified; Z59.82 Transportation insecurity; Z59.811 Housing instability, housed, with risk of homelessness; Z73.9 Problem related to life management difficulty, unspecified
CPT/HCPCS: 00123; 36416; 80053; 82010; 82805; 82962; 83690; 87637; 93005; 96361; 96365; 96375; 96376; 99285; 71046; 74177; 81003; 81015; 83605; 83735; 84484; 85025; 85379; 93010; 99284; J0131; J2405; J2765; J3490

== ENCOUNTER 2025-08-16 16:02 | Emergency (ER) | payer OTHER, SELFPAY ==
[2025-08-16] VITALS (18 sets, daily range): BP systolic 104–133; BP diastolic 48–79; PULSE 92–115; RESP 0–22; TEMP 36.9–37.2; O2SAT 95–100
--- NOTE | 2025-08-16 16:47 | ED.GENADUL_ITS ---
Discharge Plan Disposition Patient Disposition: Home Condition: Stable Discharge Details Clinical Impression: Gastroenteritis, Nausea vomiting and diarrhea Primary Care Provider: Matthew Lama ED Provider: Nyasia Bullock Home Meds and New Rx's Prescriptions: New metoclopramide HCl [Reglan] 5 mg tablet 5 mg PO QACHS PRN (Reason: nausea and vomiting) 7 Days Qty: 10 0RF Rx Instructions: Take 1 tablet by mouth before meals and at bedtime as needed for nausea vomiting Continued (DME) insulin syringe-needle U-100 0.3 mL 31 gauge x 1/4 syringe See Rx Instructions .ROUTE .MEDSUPPLY Qty: 100 4RF Rx Instructions: As directed glucagon HCl [Glucagon (HCl) Emergency Kit] 1 mg recon soln 1 mg subcut Q20M PRN (Reason: hypoglycemia) Qty: 1 0RF Rx Instructions: until target blood sugar attained insulin NPH isoph U-100 human 100 unit/mL (3 mL) insulin pen 35 unit subcut BID 30 Days Qty: 21 12RF Patient Comments: 30-32 units in AM, 18 units in PM Rx Instructions: Inject 35 units subcutaneously twice daily as directed. (DME) BD AutoShield Duo Pen Needle 30 gauge x 3/16 needle See Rx Instructions .Route Qty: 100 12RF Rx Instructions: As directed insulin lispro [Humalog Arpan KwikPen U-100] 100 unit/mL insulin pen, half- unit 10 unit subcut TID MDD 30 units 90 Days Qty: 30 4RF Rx Instructions: Inject 5-10 units subcutaneously three times daily with meals. Use 0.5 unit doses as needed. (DME) Dexcom G7 Waiter Waitress Misc See Rx Instructions .Route Qty: 1 0RF Rx Instructions: Use with Dexcom G7 sensors for blood glucose management (DME) Dexcom G7 Sensor Device See Rx Instructions .Route Qty: 3 12RF Rx Instructions: Dispense 3 sensors for 30d for the management of blood glucose ondansetron 4 mg tablet,disintegrating 4 mg PO Q6H PRNQty: 20 0RF Discharge Instructions Instructions: Viral gastroenteritis in adults, Nausea and Vomiting, Adult ED Additional Instructions: At this time it does not appear that you are in DKA. You received 2 L of fluid Zofran and Reglan. A prescription for Reglan was sent to the pharmacy on file. Please continue take the Zofran as previously prescribed. Take it 20 to 30 minutes before eating or drinking anything. Please stay away from anything fried fatty spicy or dairy. Stick to clear liquids for the next 24 hours. [place] diet thereafter as tolerated. Try bananas rice apples toast while having diarrhea. Please continue to take your insulin on a sliding scale as indicated. Follow up with primary care provider in 3-5 days. Return to ED sooner if any worsening or concerns. Thank you for allowing us to care for you. Stand Alone Forms: Portal Information Referrals: Matthew Lama NP [Primary Care Provider, Medicine] - 3 days Referral Note: ER follow-up, call for an appointment Clinical Impression: Nausea vomiting and diarrhea; Gastroenteritis HPI General Mode of arrival: ambulatory . Date/Time Provider Initiated Documentation: 08/16/25 16:04 . Limitations to Documentation: no limitations . Information obtained by: patient, RN notes reviewed and old records reviewed . HPI Narrative: 34 year old male presents to the ER for the second time in 24 hours with a chief complaint of continued vomiting and inability to keep fluids down. Patient was seen here yesterday and received multiple liters of IV normal saline and was discharged home. Possible sacroiliitis along with gastroenteritis noted on the CT at that time. Instructed to follow-up with PCP regarding this. He states that since the discharge he has continued to vomit after drinking any fluids or eating anything. He has been taking the Zofran as previously prescribed. He also did check his urine ketone strip prior to arrival and it was positive. He does smell ketotic upon arrival and is slightly tachycardic with a pulse rate of 115. He did take his insulin today which he took last unit. He does have a history of type 1 diabetes mellitus, anxiety. Also reports continued diarrhea. Denies any abdominal pain fever chills or any other associated symptoms. Related Data Home Medications ?Medication ?Instructions ?Recorded ?Confirmed insulin syringe-needle U-100 0.3 #100 ea 08/27/2007/23 525 mL 31 gauge x 1/4 pen needle,diabetic dual safty 30 #100 ea 07/08/24 gauge x 3/16 (BD AutoShield Duo Pen Needle) glucagon HCl 1 mg solution for 1 mg subcut Q20M PRN hy poglycemia 08/27/24 08/16/25 injection (Glucagon (HCl) #1 ea Emergency Kit) blood-glucose sensor (Dexcom G7 #3 ea 09/17/2408/15/ 5 Sensor device) blood-glucose,director of curriculum,cont #1 ea 09/17/24 08/15/25 (Dexcom G7 Waiter Waitress) insulin lispro 100 unit/mL 10 unit (0.1 mL) subcut TID 90 09/17/24 08/16/25 subcutaneous half-unit pen days #30 mL (Humalog Arpan KwikPen (U-100)) insulin NPH isoph U-100 human 100 35 unit (0.35 mL) shabazz bcut BID 30 11/29/24 08/16/25 unit/mL (3 mL) subcutaneous pen days #21 mL ondansetron 4 mg disintegrating 4 mg PO Q6H PRN #20 ta bs 08/15/25 08/16/25 tablet metoclopramide HCl 5 mg tablet 5 mg PO QACHS PRN nause a and 08/16/25 (Reglan) vomiting 7 days #10 tabs Previous Rx's ?Medication ?Instructions ?Recorded insulin syringe-needle U-100 0.3 #100 ea 08/27/20 mL 31 gauge x 1/4 pen needle,diabetic dual safty 30 #100 ea 07/08/24 gauge x 3/16 (BD AutoShield Duo Pen Needle) glucagon HCl 1 mg solution for 1 mg subcut Q20M PRN hy poglycemia 08/27/24 injection (Glucagon (HCl) #1 ea Emergency Kit) blood-glucose sensor (Dexcom G7 #3 ea 09/17/24 Sensor device) blood-glucose,director of curriculum,cont #1 ea 09/17/24 (Dexcom G7 Waiter Waitress) insulin lispro 100 unit/mL 10 unit (0.1 mL) subcut TID 90 09/17/24 subcutaneous half-unit pen days #30 mL (Humalog Arpan KwikPen (U-100)) insulin NPH isoph U-100 human 100 35 unit (0.35 mL) shabazz bcut BID 30 11/29/24 unit/mL (3 mL) subcutaneous pen days #21 mL ondansetron 4 mg disintegrating 4 mg PO Q6H PRN #20 ta bs 08/15/25 tablet metoclopramide HCl 5 mg tablet 5 mg PO QACHS PRN nause a and 08/16/25 (Reglan) vomiting 7 days #10 tabs Allergies Allergy/AdvReac Type Severity Reaction Status Date / Time shellfish derived Allergy Severe Throat Verified 08/16/25 16:28 Swelling General Stated Complaint: Nausea/Vomit/Diar GEOFF: 2 Review of Systems All systems reviewed & are unremarkable except as noted in HPI and below Cardiovascular Cardiovascular: Reports palpitations Gastrointestinal Gastrointestinal: Reports diarrhea, Reports nausea and Reports vomiting Endocrine Endocrine: Reports as per HPI and Reports palpitations Exam Narrative Exam Narrative: Constitutional: Alert and oriented x3. Appears stated age. Normal body habitus. Noticeably pale. Head: Normocephalic, no trauma. Eyes: Pupils PERRL, Red reflex noted, EOM's intact. Eyelids symmetrical without lesions, discharge, or swelling. ENT: Bilateral TM's WNL, External ear normal to inspection, no mastoid TTP, swelling, or erythema, Nasal turbinates WNL, no nasal discharge. Normal dentition, Posterior pharynx WNL, no exudate. Chest: Sinus tachycardia, normal S1, S2, distal pulses intact. Resp: Lungs clear to auscultation bilaterally, no wheezes, rales, or rhonchi. Abdomen: Soft, non-distended, Normoactive bowel sounds all 4 quads. Musculoskeletal: Normal gait, Moves all 4 extremities without difficulty. Skin: No suspicious rashes or lesions. Capillary refill less than 2 sec. Neurologic: Cranial nerves II-XII intact. Alert and oriented x 3. Motor: No deficits noted. Sensory: Intact bilaterally all 4 extremities. Hematologic/Lymphatic: No ecchymosis, no lymphadenopathy. Course Vital Signs Vital signs: Vital Signs Temperature 36.9 C 08/16/25 16:23 Pulse 115 H 08/16/25 16:23 Respiratory Rate 18 08/16/25 16:23 Blood Pressure 119/72 08/16/25 16:23 Pulse Oximetry 95 08/16/25 16:23 Temperature 36.9 C 08/16/25 16:23 Pulse 109 H 08/16/25 16:45 Respiratory Rate 18 08/16/25 16:45 Blood Pressure 133/73 08/16/25 16:45 Blood Pressure Mean 93 08/16/25 16:45 Pulse Oximetry 98 08/16/25 16:45 Oxygen Delivery Method Room Air 08/16/25 16:45 Oxygen Flow Rate 0 08/16/25 16:45 Medical Decision Making 34 year old male presents to the ER for the second time in 24 hours with a chief complaint of continued vomiting and inability to keep fluids down. Patient was seen here yesterday and received multiple liters of IV normal saline and was discharged home. Possible sacroiliitis along with gastroenteritis noted on the CT at that time. Instructed to follow-up with PCP regarding this. He states that since the discharge he has continued to vomit after drinking any fluids or eating anything. He has been taking the Zofran as previously prescribed. He also did check his urine ketone strip prior to arrival and it was positive. He does smell ketotic upon arrival and is slightly tachycardic with a pulse rate of 115. He did take his insulin today which he took last unit. He does have a history of type 1 diabetes mellitus, anxiety. Also reports continued diarrhea. Denies any abdominal pain fever chills or any other associated symptoms. Ordered including IV CBC CMP lactate beta hydroxybutyrate, will give a liter of LR and Zofran. Patient has not acidotic however the beta hydroxybutyrate. It elevate to 2.16 no evidence of elevated gap or DKA. Will give a second liter of LR and Reglan. Will discharge patient home with Rx for reglan and instructions to continue taking the zofran. I did give further teaching to wait approximately 2030 minutes before eating or drinking anything after taking the nausea medication he verbalized understanding. This text was generated using [employer] dictation system, please disregard any oddities of phrase or misspellings. Medical Records Medical records reviewed: Yes I reviewed the patient's medical records. Lab Data Lab results reviewed: Yes I reviewed the patient's lab results. Labs: Laboratory Tests Range/Units 08/16/25 16:59 WBC (4.4-10.8) 10^3/uL 5.19 RBC (4.36-5.78) 10^6/uL 5.11 Hgb (13.5-17.5) g/dL 14.9 Hct (40.0-50.0) % 45.4 MCV (80-95) fL 89 MCH (27.0-33.0) pg 29.2 MCHC (32.0-36.0) % 32.8 RDW (11.8-14.1) % 12.1 Plt Count (130-400) 10^3/uL 218 MPV (8.0-11.0) fL 9.5 Immature Gran % % 0.4 Neutrophils % % 82.4 Lymphocytes % % 8.1 Monocytes % % 8.1 Eosinophils % % 0.2 Basophils % % 0.8 Nucleated RBC % (0.0-0.3) % 0.0 Absolute Neutrophils (1.2-6.7) 10^3/uL 4.28 Absolute Lymphocytes (1.2-3.4) 10^3/uL 0.42 L Absolute Monocytes (0.1-0.8) 10^3/uL 0.42 Absolute Eosinophils (0.0-0.7) 10^3/uL 0.01 Absolute Basophils (0.0-0.2) 10^3/uL 0.04 VBG pH (7.31-7.41) 7.35 VBG pCO2 (41-51) mmHg 45 VBG pO2 mmHg 31 VBG HCO3 (23-28) mmol/L 25 VBG Total CO2 (24-29) mmol/L 22 L VBG O2 Saturation % 62 VBG Base Excess (-2-3) mmol/L -1 VBG Lactate (<or=2.0) mmol/L 0.9 Sodium (136-145) mmol/L 138 Potassium (3.5-5.1) mmol/L 3.8 Chloride (98-107) mmol/L 104 Carbon Dioxide (20.0-31.0) mmol/L 24.6 Anion Gap (3-11) mmol/L 9.4 BUN (9-23) mg/dL 12 Creatinine (0.73-1.18) mg/dL 0.82 Est GFR (CKD-EPI 2020) (mL/min/1.73m2) 107.00 Glucose (74-106) mg/dL 252 H Calcium (8.3-10.6) mg/dL 8.8 Magnesium (1.6-2.6) mg/dL 1.7 Total Bilirubin (0.2-1.2) mg/dL 0.5 AST (<34) U/L 23 ALT (10-49) U/L 21 Alkaline Phosphatase (46-116) U/L 69 Total Protein (5.7-8.2) g/dL 7.3 Albumin (3.2-5.0) g/dL 4.2 Beta-Hydroxybutyrate (0.02-0.27) mmol/L 2.16 H Quality:SDOH Health Related Social Needs: Health related social needs risk of homeless transpo i nsecurity daily activities Health related social needs details denies needs PFSH All Active Problems (Updated 08/16/25 @ 18:47 by Nyasia Bullock NP) Nausea vomiting and diarrhea (Acute) Chronic back pain (Acute) Bilateral sacroiliitis (Acute) Hyperglycemia (Acute) Tachycardia (Acute) Gastroenteritis (Acute) Diabetes mellitus type 1 (Acute) Fracture of fifth metacarpal bone of right hand (Acute 04/28/23) Shortness of breath (Acute) Shoulder pain, left (Acute) Low back strain (Acute) Loose stools (Acute) Anxiety (Chronic) Annual physical exam (Acute) Medical History Diabetes mellitus type 1.5 Diabetes mellitus Headache Abdominal symptoms Influenza A Diabetes mellitus Surgical History No pertinent past surgical history Family History Mother Asthma Depression Diabetes Heart disease Hypertension Father Seizures Sister Seizures Social History Smoking/Tobacco Use Status: Former Tobacco Use Tobacco: How many years used: 8 Quit status: has quit before Second Hand Exposure: Yes Smoking risk assessment performed?: Yes Alcohol Intake: never Drug use: Never Substance use type: does not use Caregiver/Support person: No Household members: spouse Housing: house Communication Needs: None Do you need help understanding health information?: Never Pets and animals: Yes Pets and animals: cat(s) Sexually active: Yes Do you think of yourself as: straight/heterosexual Current gender identity: male What is your relationship status?: How often do you talk on the phone with friends or family?: once per week How often do you get together with friends or relatives?: once per week How often do you attend hindu or baptism services?: decline to answer Do you belong to any clubs or organized social groups?: no Panel score (0-1 are the most socially isolated patients): 1 What type of physical activity do you participate in: walking Duration: other Frequency: daily Louise/Sabianist: Lutheran Seatbelt use: always Drive intox or ride w/intox road oiling truck driver: No Do you feel safe at home: Yes Do you feel safe in your relationship?: Yes
[2025-08-16 17:03] LABS: BE (Venous) -1 mmol/L (-2-3); HCO3 (Venous) 25 mmol/L (23-28); O2 Sat (Venous) 62 %; TCO2 (Venous) 22 mmol/L (24-29); pCO2 (Venous) 45 mmHg (41-51); pO2 (Venous) 31 mmHg
[2025-08-16 17:04] LABS: Abs Immature Grans 0.02 10^3/uL (0.0-0.06); HCT 45.4 % (40.0-50.0); HGB 14.9 g/dL (13.5-17.5); Immature Grans % 0.4 %; MCH 29.2 pg (27.0-33.0); MCHC 32.8 % (32.0-36.0); MCV 89 fL (80-95); MPV 9.5 fL (8.0-11.0); Platelet Count 218 10^3/uL (130-400); RBC 5.11 10^6/uL (4.36-5.78); RDW 12.1 % (11.8-14.1); RDW-SD 40.0 fL; WBC 5.19 10^3/uL (4.4-10.8)
[2025-08-16] MEDS: FAMOTIDINE 20 MG in Normal Saline 100 ML 400 MG IVPB (17:18)
[2025-08-16] MEDS: Ondansetron 4 MG/2 ML VIAL IVP (17:19)
[2025-08-16] MEDS: Lactated Ringers 1,000 ML 1000 ML IV ×2 (17:19→18:17)
[2025-08-16 17:23] LABS: ALT 21 U/L (10-49); AST 23 U/L (<34); Albumin 4.2 g/dL (3.2-5.0); Alkaline Phosphatase 69 U/L (46-116); Anion Gap 9.4 mmol/L (3-11); BUN 12 mg/dL (9-23); Bilirubin, Total 0.5 mg/dL (0.2-1.2); CO2 24.6 mmol/L (20.0-31.0); Calcium 8.8 mg/dL (8.3-10.6); Chloride 104 mmol/L (98-107); Glucose 252 mg/dL (74-106); Magnesium 1.7 mg/dL (1.6-2.6); Potassium 3.8 mmol/L (3.5-5.1); Sodium 138 mmol/L (136-145); Total Protein 7.3 g/dL (5.7-8.2)
[2025-08-16 17:28] LABS: Beta Hydroxybutyrate 2.16 mmol/L (0.02-0.27)
[2025-08-16] MEDS: Metoclopramide 10 MG/2 ML VIAL IVP (18:17)
== END 2025-08-16 18:51 | disposition home or self-care (01) ==
PROVIDERS: Emergency Provider Registered Nurse Emergency; PCP Nurse Practitioner Family
DX: R19.7 Diarrhea, unspecified; K52.9 Noninfective gastroenteritis and colitis, unspecified; R11.2 Nausea with vomiting, unspecified; Z59.811 Housing instability, housed, with risk of homelessness; Z59.82 Transportation insecurity; Z73.9 Problem related to life management difficulty, unspecified
CPT/HCPCS: 36416; 80053; 82010; 82805; 82962; 96361; 96365; 96375; 99284; 83605; 83735; 85025; 99283; J2405; J2765